=== PATIENT | female | born 1970 | race Hispanic/Latino ===

== ENCOUNTER 2020-05-02 14:28 | Emergency (ER) | payer OTHER, SELFPAY ==
--- OUTSIDE RECORDS SUMMARY | 2020-05-02 14:46 | XMS REPORT | Continuity of Care Document ---
:1970 Author Organization [facility] [employer] Care Team Providers Name Role Phone [facility] [employer] De[employer] Unavailable Un available Problems Problem Status Onset Classification Date Comments Sourc e Date Reported ANEMIA Active 11/07/19 [facility] [place] ANEMIA/TRANSFUSION [facility] [place] Anemia due to Active Problem 04/16/2020 [facility] dical blood loss Group (disorder) Menorrhagia Active Problem 04/16/2020 [facility] (finding) Group Uterine leiomyoma Active Problem 04/16/2020 [facility] (disorder[facility] Breast neoplasm Active Problem 04/16/2020 Medical screening Group (procedure) Patient encounter Active Problem 04/16/2020 [facility] status (finding) Mickie up Screening status Active Problem 04/16/2020 Medical (finding) Group Cobalamin Active Problem 04/16/2020 Medica l deficiency Group (disorder) Mixed Active Problem 04/16/2020 Medica l hyperlipidemia Group (disorder) Numbness of hand Active Problem 04/16/2020 Medical (finding) Group ANEMIA, Active [facility] UNSPECIFIED [place] Medications Medication Details Route Status Patient Ordering Order Source Instructions Provider Date gabapentin 300 300 mg = 1 Active Med ical MG Oral Capsule cap, PO, 020 Group BID, # 60 cap, 1 Refill(s), Pharmacy: [facility] [place], 152.4, cm, 04/14/20 13:11:00 CDT, Height, 53.835, kg, 04/14/20 13:11:00 CDT, Weight {21 (Ethinyl 3 tab, PO, Active Medic al Estradiol 0.03 Daily, # 28 020 Group MG / tab, 5 norethindrone Refill(s), acetate 1.5 MG Pharmacy: Oral Tablet) } [facility] Pack [facility], 152.4, cm, 01/06/20 14:42:00 CDT, Height, 53.864, kg, 01/06/20 14:42:00 CDT, Weight Loestrin 21 Loestrin 21 No Longer MH 1.5 oral 1.5 oral Active 020 [place] tablet tablet, 1 tab, Drug form: TAB, Route: PO, Daily, 11/08/19 9:00:00 CDT, Duration: 30 day, Stop date: 12/07/19 9:00:00 CDT [place] 1.12/18 [place] Inactive MH 21-day tablet 1.12/18 020 [place] 21-day tablet, 1 tab, Drug form: MISC, Route: PO, Daily, 11/08/19 9:00:00 CDT, Duration: 30 day, Stop date: 12/07/19 9:00:00 CDT, 0 sennosides, MCFP Notes: No Longer MH 8.6 MG Oral (Same as: Active 020 [place] Tablet Senokot) {21 (Ethinyl 3 tab, PO, Active MH Estradiol 0.03 Daily, 0 020 [place] MG / Refill(s) norethindrone acetate 1.5 MG Oral Tablet) } Pack [[place] .12/18] ferrous sulfate 325 mg = 1 Active MH 325 MG Oral tab, PO, 020 [place] Tablet Daily, 0 Refill(s) ferrous sulfate Notes: Give No Longer MH with food. Active 020 [place] "Do Not Crush" normal saline 1,000 mL, No Longer MH 0.9% IV 1,000 mL Rate: 75 Active 020 [place] ml/hr, Infuse over: 13.3 hr, Route: IV, Dosing Weight 51.392 kg, Total Volume: 1,000, Start date: 11/07/19 11:13:00 CDT, Duration: 30 day, Stop date: 12/07/19 11:12:00 CDT, 1.49, m2, 0 Sodium Chloride 250 mL, No Longer MH 0.9% (titrate) Rate: To Active 020 [place] 250 mL prime line and flush remaining blood products., Dosing Weight 51.392, kg, Route: IV, Total Volume: 250, Priority: Routine, Start Date: 11/07/19 11:05:00 CDT, Duration: 1 day, Stop date: 11/08/19 11:04:00 CDT, Replace Every: 24 hr, 0 Dextrose 50% 12.5 gm, 25 No Longer Syringe (D50W) mL, Route: Active [facility] nd IVP, Drug Form: INJ, Dosing Weight 51.392, kg, PRN, PRN Blood Glucose Results, Start date: 11/07/19 11:04:00 CDT, Duration: 30 day, Stop date: 12/07/19 11:03:00 CDT, 0 Glucagon 1 mg, No Longer Route: IM, Active [place] Drug form: PDR/INJ, PRN, Dosing Weight 51.392, kg, PRN Blood Glucose Results, Start date: 11/07/19 11:04:00 CDT, Duration: 30 day, Stop date: 12/07/19 11:03:00 CDT, 0 {21 (Ethinyl 1 tab, PO, Active Medic al Estradiol 0.03 Daily, take 020 Group MG / 3 pills a norethindrone day x 5 acetate 1.5 MG days, then Oral Tablet) } 2 pills a Pack [Loestrin day x 5 1.5/30 21 Day] days, then one a day as directed, # 84 tab, 3 Refill(s), Pharmacy: [facility] meloxicam 15 mg 15 mg = 1 Active Med ical oral tablet tab, PO, 020 Group Daily, PRN Pain, # 90 tab, 1 Refill(s), Pharmacy: [facility] Ondansetron 4 MG 4 mg = 1 Active Med ical Disintegrating tab, PO, 020 Group Tablet TID, PRN Nausea / Vomiting, Dissolve tab under tongue, # 30 tab, 0 Refill(s), Pharmacy: [facility] meloxicam 15 mg 15 mg = 1 Inactive Me dical oral tablet tab, PO, 020 Group Daily, PRN Pain, # 90 tab, 1 Refill(s), Pharmacy: [facility] Ondansetron 4 MG 4 mg = 1 Inactive Me dical Disintegrating tab, PO, 020 Group Tablet TID, PRN Nausea / Vomiting, Dissolve tab under tongue, # 30 tab, 0 Refill(s), Pharmacy: [facility] [place] #1 {21 (Ethinyl 1 tab, PO, Inactive Medi marlen Estradiol 0.03 Daily, take 020 Group MG / 3 pills a norethindrone day x 5 acetate 1.5 MG days, then Oral Tablet) } 2 pills a Pack [Loestrin day x 5 1.5/30 21 Day] days, then one a day as directed, # 84 tab, 3 Refill(s), Pharmacy: [facility] [place] Allergies, Adverse Reactions, Alerts No Known Medication Allergies Immunizations No Data Provided for This Section Results Order Name Results Value Reference Date Interpretation Comments Angeli rce Range HEMATOLOGY Segs 67.3 45.0 - 11/07 MH 75.0 [place] HEMATOLOGY Lymphocytes 23.4 20.0 - 11/07 MH 40.0 [place] HEMATOLOGY Monocytes 7.3 2.0 - 12.0 11/07 [place] HEMATOLOGY Eosinophils 1.4 0.0 - 4.0 11/07 [place] HEMATOLOGY Basophils 0.6 0.0 - 1.0 11/07 [place] HEMATOLOGY Neutrophils 5.9 1.5 - 8.1 11/07 MH # [place] HEMATOLOGY Lymphocytes 2.0 1.0 - 5.5 11/07 MH # [place] HEMATOLOGY Monocytes # 0.6 0.0 - 0.8 11/07 [place] HEMATOLOGY Eosinophils 0.1 0.0 - 0.5 11/07 MH # [place] HEMATOLOGY Basophils # 0.1 0.0 - 0.2 11/07 [place] HEMATOLOGY Microcyte 1+ None Seen 11/07 *ABN* [place] (11/08/19 1:41 AM) HEMATOLOGY WBC 8.7 3.7 - 10.4 11/07 [place] HEMATOLOGY RBC 3.32 4.20 - 11/07 5.40 [place] HEMATOLOGY Hgb 9.1 12.0 - 11/07 16.0 [place] HEMATOLOGY Hct 26.2 36.0 - 11/07 MH 48.0 [place] HEMATOLOGY MCV 78.8 80.0 - 11/07 MH 98.0 [place] HEMATOLOGY MCH 27.3 27.0 - 11/07 MH 31.0 [place] HEMATOLOGY MCHC 34.7 32.0 - 11/07 MH 36.0 [place] HEMATOLOGY RDW 20.0 11.5 - 11/07 MH 14.5 [place] HEMATOLOGY Platelet 259 133 - 450 11/07 [place] HEMATOLOGY MPV 8.8 7.4 - 10.4 11/07 [place] ANEMIA Ferritin Lvl 3 5 - 204 11/06 STUDY /2019 [place] ANEMIA Iron 256 30 - 160 11/06 STUDY [place] ANEMIA TIBC 461 228 - 428 11/06 STUDY [place] ANEMIA UIBC 205 110 - 370 11/06 STUDY [place] ANEMIA % Satur Fe 56 12 - 57 11/06 STUDY [place] ANEMIA Folate Lvl 21.4 >=3.0 11/06 STUDY ng/mL [place] ANEMIA Vitamin B12 302 254 - 1320 11/06 STUDY Lvl /2019 [place] BLOOD BANK ABO/Rh B POS 11/06 RESULTS /2019 [place] BLOOD BANK Antibody Negative 11/06 RESULTS Scrn (11/07/19 11:46 AM) [place] and CHEM PANEL LDH 170 98 - 192 11/06 [place] CHEM PANEL Bili Total 0.3 0.2 - 1.3 11/06 [place] CHEM PANEL Bili Direct <0.1 0.0 - 0.3 11/06 [place] CHEM PANEL Bili Unable to 0.0 - 1.0 11/06 Indirect Calculate [place] HEMATOLOGY Retic Auto 2.9 0.5 - 1.5 11/06 [place] HEMATOLOGY WBC 7.4 3.7 - 10.4 11/06 [place] HEMATOLOGY RBC 2.06 4.20 - 11/06 MH 5.40 /2019 [place] HEMATOLOGY Hgb 4.7 12.0 - 11/06 Result MH 16.0 Comment: [place] Critical Result(s) called to Tomas Naranjo at 11/07/2019 12:01 by Bonnie Abreu. Read back OK. Consistent with patient condition per RN. HEMATOLOGY Hct 14.5 36.0 - 11/06 Result MH 48.0 Comment: [place] Critical Result(s) called to Tomas Naranjo at 11/07/2019 12:01 by Bonnie Abreu. Read back OK. Consistent with patient condition per RN. HEMATOLOGY MCV 70.4 80.0 - 11/06 MH 98.0 [place] HEMATOLOGY MCH 22.8 27.0 - 11/06 MH 31.0 /2019 [place] HEMATOLOGY MCHC 32.4 32.0 - 11/06 MH 36.0 [place] HEMATOLOGY RDW 16.6 11.5 - 04 MH 14.5 /2019 [place] HEMATOLOGY Platelet 330 133 - 450 04 MH /2019 [place] HEMATOLOGY MPV 8.5 7.4 - 10.4 11/06 MH /2019 [place] HEMATOLOGY Segs 79.7 45.0 - 11/06 MH 75.0 [place] HEMATOLOGY Lymphocytes 14.9 20.0 - 11/06 MH 40.0 [place] HEMATOLOGY Monocytes 4.7 2.0 - 12.0 11/06 MH /2019 [place] HEMATOLOGY Eosinophils 0.3 0.0 - 4.0 11/06 MH /2019 [place] HEMATOLOGY Basophils 0.4 0.0 - 1.0 11/06 MH /2019 [place] HEMATOLOGY Neutrophils 5.9 1.5 - 8.1 11/06 MH # /2019 [place] HEMATOLOGY Lymphocytes 1.1 1.0 - 5.5 11/06 MH # /2019 [place] HEMATOLOGY Monocytes # 0.3 0.0 - 0.8 11/06 MH /2019 [place] HEMATOLOGY Microcyte 2+ None Seen 11/06 MH *ABN* /2019 [place] (11/07/19 11:46 AM) BLOOD BANK RBC product Product available 1 11/06 Resul t RESULTS (11/07/19 11:06 AM) Comment: [facility] 11/07/2019 13:10 [id number]
Blood available, notified Dayan at 11/07/2019 13:07 by PETER. ENDOCRINOLO hCG Tot <2 11/05 Result GY Comment: Medical Reference Group Range
Non or premenopausal <5
Postme nopausal <10

Values from different assay methods may vary.
The use of this assay to monitor or to diagnose
patients with cancer or any condition unrelated<br/ >to has not been cleared or approved by
the FDA or the development coordinator of the assay.
FA STING:NO

FASTING: NO

Lab test performed by:
[facility]
[address] [place] [address]
[place] [address]
[facility] HEMATOLOGY WBC X 10x3 6.0 3.8 - 10.8 11/05 Result Comment: Medical
Lab Group test performed by:
[facility]
[address]
[place] [address]
[facility] HEMATOLOGY RBC X 10x6 2.19 3.80 - 11/05 MH 5.10 Medical [facility] HEMATOLOGY Hgb 4.7 11.7 - 11/05 Result MH 15.5 Comment: Medical Verified by Group repeat analysis. HEMATOLOGY Hct 16.0 35.0 - 11/05 Result MH 45.0 Comment: Medical Verified by Group repeat analysis. HEMATOLOGY MCV 73.1 80.0 - 11/05 MH 100.0 /2019 Medical [facility] HEMATOLOGY MCH 21.5 27.0 - 11/05 MH 33.0 Medical [facility] HEMATOLOGY MCHC 29.4 32.0 - 11/05 MH 36.0 /2019 Medical [facility] HEMATOLOGY RDW 14.7 11.0 - 11/05 MH 15.0 Medical [facility] HEMATOLOGY Platelet 313 140 - 400 11/05 /2019 [facility] HEMATOLOGY MPV 11.1 7.5 - 12.5 11/05 /2019 [facility] HEMATOLOGY Neutrophils 3876 1500 - 11/05 MH # 7800 /2019 Medical Group HEMATOLOGY Lymphocytes 1608 850 - 3900 11/05 MH # /2019 [facility] HEMATOLOGY Monocytes # 390 200 - 950 11/05 [facility] HEMATOLOGY Eosinophils 108 15 - 500 11/05 # /2019 Medical [facility] HEMATOLOGY Basophils # 18 0 - 200 11/05 /2019 Medical [facility] HEMATOLOGY Segs 64.6 11/05 /2019 Medical Group HEMATOLOGY Lymphocytes 26.8 04/17 Medical Group HEMATOLOGY Monocytes 6.5 11/05 Medical Group HEMATOLOGY Eosinophils 1.8 11/05 Medical Group HEMATOLOGY Basophils 0.3 11/05 Medical Group HEMATOLOGY Diff Comment SEE 11/05 Result COMMENT /2019 Comment: Medical Review of Group peripheral smear confirms
automated results. Pathology Reports No Data Provided for This Section Diagnostic Reports Report Value Date Source Pelvis Limited w PROCEDURE INFORMATION: 11/07/2019 [facility] Transva non OB US Exam: US Pelvis Limited, Tra nsabdominal and US Pelvis, Transvaginal Exam date and time: 11/07/2019 1:14 PM Age: 49 years old Clinical indication: /bleeding TECHNIQUE: Imaging protocol: Real-time transabdominal and t ransvaginal pelvic ultrasound (limited) with image documentation. Transvaginal imaging was used for better evaluation of the endometrium and adnexa. COMPARISON: No relevant prior studies available. FINDINGS: Uterus/cervix: Uterus measures up to 9.5 cm and demonstrates normal echogenicity and Doppler flow. The endometrial s tripe measures 6 mm and is within normal limits. 3.9 x 3.6 x 2.4 cm subserosal anterior uterine fibroid is identified. Right adnexa: Right ovary is not identified for unknown reason. Left adnexa: Left ovary measures 3.2 x 2.8 x 1.9 cm and demonstrates normal echogenicity and Doppler flow. Free fluid: No free fluid identified in the pelv is. IMPRESSION: 3.9 cm subserosal uterine fibroid. Right ovary is absent. No significant sonographic abnormalities otherwi se identified. Jason Arita MD On 11/07/2019 16:41:13; [id number] Consultation Notes No Data Provided for This Section Discharge Summaries No Data Provided for This Section History and Physicals No Data Provided for This Section Vital Signs Vital Sign Value Date Comments Source Systolic (mm Hg) 112 04/14/2020 Medical Group Diastolic (mm Hg) 72 04/14/2020 [facility] Group Heart Rate 79 04/14/2020 Medical Grou p Temperature Oral (F) 97.2 F 04/14/2020 [facility] Height 152.4 cm 04/14/2020 Medical Gr[facility] p Weight 53.835 04/14/2020 [facility] Gr[facility] p BMI Calculated 23.18 04/14/2020 Medical Gr oup Systolic (mm Hg) 123 01/06/2020 [facility] Group Diastolic (mm Hg) 74 01/06/2020 [facility] Heart Rate 61 01/06/2020 Medical Grou p Temperature Oral (F) 98.4 F 01/06/2020 [facility] Group Height 152.4 cm 01/06/2020 Medical Grou p Weight 53.864 01/06/2020 Medical Grou p BMI Calculated 23.19 01/06/2020 Medical Gr oup Systolic (mm Hg) 99 11/17/2019 Medical Group Diastolic (mm Hg) 61 11/17/2019 [facility] Heart Rate 71 11/17/2019 Medical Grou p Temperature Oral (F) 98.6 F 11/17/2019 [facility] Group Height 152.4 cm 11/17/2019 Medical Grou p Weight 53.182 11/17/2019 Medical Grou p BMI Calculated 22.9 11/17/2019 Medical Gr oup Heart Rate 64 11/08/2019 [place] Respitory Rate 18 11/08/2019 [place] Systolic (mm Hg) 98 11/08/2019 [place] Diastolic (mm Hg) 58 11/08/2019 [place] Heart Rate 65 11/08/2019 [place] Respitory Rate 18 11/08/2019 [place] Systolic (mm Hg) 118 11/08/2019 [place] Diastolic (mm Hg) 72 11/08/2019 [place] Heart Rate 72 11/08/2019 [place] Respitory Rate 18 [facility] Sy[facility] ([facility] Hg) 95 11/08[facility]2019 [facility] Diastolic (mm Hg) 55 11/08/2019 [place] Temperature Oral (F) 99.1 F 11/07/2019 [place] Temperature Oral (F) 98.1 F 11/07/2019 [place] Height 152.4 cm 11/07/2019 [place] Weight 49.773 11/07/2019 [place] BMI Calculated 21.43 11/07/2019 [place] Systolic (mm Hg) 107 11/06/2019 [facility] Group Diastolic (mm Hg) 58 11/06/2019 [facility] Heart Rate 93 11/06/2019 Medical Grou p Height 152.4 cm 11/06/2019 [facility] Gr[facility] p Weight 51.392 11/06/2019 Medical Grou p BMI Calculated 22.13 11/06/2019 Medical Gr oup Encounters Location Location Encounter Encounter Reason Attending ADM DC Stat us Source Details Type Number For Provider Date Date Visit Outpatient [id number] [facility]ynum [facility] Outpatient [id number] Anmol Bynum 11/05 11/06 Primary Jr /2019 [facility] Between [id number] 11/06 11/07 Primary Visit /2019 [facility] Inpatient [id number] An 11/06 11/07 [place] /2019 [facility] Outpatient [id number] Anmol Bynum [facility]16 [facility] Outpatient [id number] Anmol Bynum 11/16 11/17 Primary Jr /2019 [facility] [place] [facility] [id number] Kathie 01/05 [facility] Outpatient [id number] Kathie 01/05 01/06 Primary [facility] /2019 [facility] Phone [id number] 01/11 01/13 Primary Message /2019 [facility] Phone [id number] 01/11 01/13 Primary Message /2019 [facility] [place] Outpatient [id number] Kathie 04/14 [facility] Outpatient [id number] Kathie 04/14 04/15 Primary [facility] /2019 [facility] [place] Outpatient [id number] Kathie 10/13 [facility] [place] Procedures No Data Provided for This Section Assessment and Plan Assessment and Plan Date Source Extracted from:Title: Heme-Onc Consult 11/08/2019 Jamari Garcia Author: Guru Villeda MD Date: 11/08/19 Hematology Oncology Consult Note: REFERRING PHYSICIAN: Dr. Nunez REASON FOR CONSULTATION: Anemia CHIEF COMPLAINT: Lightheaded HISTORY OF PRESENT ILLNESS: This is a 49-year-old female with no sig nificant past medical history, who was admitted to the hospital with hemoglobin of 4.7. Hematology was consulted for evaluation and management of microcytic anemia. Patient states that she normally has reg ular menstrual periods, but the last one was particularly heavy. She was started on oral contraception last week with improvement in her menstrual bleeding. Pat antonynt reports feeling weak and lightheade d. Blood work showed ferritin of 3, normal folate and B12. Patient was given 3 units of PRBC and her hemoglobin went up to 9.1. PAST MEDICAL HISTORY: None PAST SURGICAL HISTORY: None SOCIAL HISTORY: Employment/School Details: Status: Employed. Work/School description: [employer] in the [employer] department. Other: , 3 children (the youngest still lives with them). Tobacco Details: Use: Never smoker. Ready to ch kailyn: No. Tobacco smoke exposure: None. Did the Patient Smoke Cigarettes Anytime During the Last 365 Days? No. Cessation Counseling Provided? No. FAMILY HISTORY: Mother: [place] - Breast cancer ALLERGIES: Allergies: No Known Allergies Home Medications Home Medications (5) Active iron sulfate (ferrous sulfate) 325 mg oral tablet 325 mg = 1 tab, PO, Daily [place] 1.5/30 oral tablet 3 tab, PO, Daily Loestrin 21 1.5/30 oral tablet 1 tab, PO, Daily meloxicam 15 mg oral tablet 15 mg = 1 tab, PRN, PO, Daily ondansetron 4 mg oral tablet, disintegrating 4 mg = 1 tab, P RN, PO, TID Inpatient Medications: Medications (7) Active Scheduled Meds (3): 11/07/19 ferrous sulfate 325 mg PO TID 11/08/19 non-formulary ([place] 1.5/30 21-day tablet) 1 tab PO Daily 11/07/19 senna (senna 8.6 mg oral tablet) 8.6 mg PO BID Unscheduled Meds: None PRN Meds (3): 11/07/19 Dextrose 50% in Water IV (Dextrose 50% Syring e (D50W)) 12.5 gm IVP PRN 11/07/19 Dextrose 50% in Water IV (Dextrose 50% Syringe (D50 W)) 25 gm IVP PRN 11/07/19 glucagon 1 mg IM PRN One Time Meds: None Continuous Infusions (1): 11/07/19 Sodium Chloride 0.9% IV 1,000 m L (normal saline 0.9% IV 1,000 mL) 1,000 mL 75 ml/hr REVIEW OF SYSTEMS: 12 point review of systems was performed and is negative except for what is mentioned in HPI PHYSICAL EXAMINATION: Vitals Tmp(F) Pulse BP RR SpO2 FIO2 11/07 12:00 98.3 64 98/58 18 99 --- 11/07 08:00 98 65 118/72 18 100 --- 11/07 04:05 99.1 72 95/55 18 98 --- 11/06 16:00 99.1 85 94/57 16 100 --- 11/06 12:00 98.1 84 96/49 16 100 --- 24 Hr Tmax: 99.1F (37.28c) at 11/07 04:0 5 Vital Signs are the last 5 in the past 48 hours. Gen: NAD, AAOx3 HEENT: PERRL, EOMI, MMM Heart: RRR, S1, s2, no M/R/G Lungs: CTAB, no W/R/R Abd: soft, NT/ND, +BS, no HSM : no suprapubic tenderness Extrem: no pitting edema noted DATA: Labs reviewed, noted Hct: 26.2 % Low (11/08/19 01:41:00) Hgb: 9.1 g/dL Low (11/08/19 01:41:00) MCH: 27.3 pg (11/08/19 01:41:00) MCHC: 34.7 g/dL (11/08/19 01:41:00) MCV: 78.8 fL Low (11/08/19 01:41:00) MPV: 8.8 fL (11/08/19 01:41:00) Platelet: 259 K/CMM (11/08/19 01:41:00) RBC: 3.32 M/CMM Low (11/08/19 01:41:00) RDW: 20 % High (11/08/19 01:41:00) WBC: 8.7 K/CMM (11/08/19 01:41:00) Bili Total: 0.3 mg/dL ( 11:46:00) Imaging reviewed, noted Imaging Studies (last 36 hours) Pelvis Limited w Transvag non OB US 11/07/2019 16:41 Impression: 3.9 cm subserosal uterine fibroid. Right ovary is absent. No significant sonographic abnormalities otherwise identifie marty Arita MD On 11/07/2019 16:41:13; [id number] ASSESSMENT AND PLAN: Iron deficiency anemia Likely secondary to menorrhagia Patient is currently on oral contracept ion, which hopefully will improve her menstrual bleeding Discussed with the hospitalist, recomme nd discharging patient on oral iron supplementation, which she already has We will schedule patient for a follow-u p visit within 2 weeks. If unable to tolerate oral iron, will give iron IV Heme-Onc Dispo - no further inpatient work up is mariana ferguson Patient is cleared for discharge from Heme-Onc standoint Extracted from:Title: [facility] Hospitalist Admission History and Physical Author: An Nunez MD Date: 11/07/19 1.Anemia(D64.9) -transfuse 3 units PRBCs -f/u iron studies -cont FeSO4 Ordered: Admit/Condition, 11/07/19 11:05:00 CDT, Status: Inpatient, Telemetry Capable Location, Expected LOS: 2 Midnights, An Nunez MD, Admit MD Review/Approve Yes, Isolation: No Isolation/Standard Precautions, Anemia 2.Menorrhagia(N92.0) -continue Loestrin -pelvic/transvaginal US -needs outpatient CHEMIST STEROIDS amb 1-2 [place] Plan of Care No Data Provided for This Section Social History Social History Date Source Social History TypeResponse 11/06/2019 Mita smith Employment/School Status: Employed. Work/School descripti on: [employer] in the [employer] department. Other: , 3 children (the youngest still lives with them). Smoking Status Never smoker; Ready to change: No; Expos ure to Tobacco Smoke None; Cigarette Smoking Last 365 Days No; Reg Smoking Cessation Counseling No entered on: 04/14/20 Social History TypeResponse 11/06/2019 Radha Employment/School Status: Employed. Work/School descripti on: [employer] in the [employer] department. Other: , 3 children (the youngest still lives with them). Smoking Status Never smoker; Ready to change: No; Expos ure to Tobacco Smoke None; Cigarette Smoking Last 365 Days No; Reg Smoking Cessation Counseling No entered on: 11/06/19 Family History No Data Provided for This Section Advance Directives No Data Provided for This Section Functional Status No Data Provided for This Section
--- OUTSIDE RECORDS SUMMARY | 2020-05-02 14:46 | XMS REPORT | Summary of Care ---
:1970 Author Organization [facility] [place] Address [address] [place] [address]- Encounter HQ Nusrat_natasha(FIN) [id number] Date(s): 04/14/20 - 04/14/20 [facility] [place] [address] [place] [address]- [phone] Discharge Disposition: Home or Self Care Attending Physician: Kathie Garcia MD Vital Signs Most recent to oldest [Reference Range]: 1 Height 152.4 cm (04/14/20 1:06 PM) Temperature Oral [96.4-99.1 DegF] 97.2 DegF (04/14/20 1:06 PM) Blood Pressure [90-140/60-90 mmHg] 112/72 mmHg (04/14/20 1:06 PM) Peripheral Pulse Rate [60-100 bpm] 79 bpm (04/14/20 1:06 PM) Weight 53.835 kg (04/14/20 1:06 PM) Body Mass Index 23.18 m2 (04/14/20 1:06 PM) Problem List Condition Effective Dates Status Health Status Informant Blood loss anemia(Confirmed) Active Breast cancer screening(Confirmed) Active Vitamin B 12 deficiency(Confirmed) Active Menorrhagia(Confirmed) Active Mixed hyperlipidemia(Confirmed) Active Numbness of hand(Confirmed) Active Annual physical exam(Confirmed) Active Colon cancer screening(Confirmed) Active Lipid screening(Confirmed) Active Diabetes mellitus screening(Confirmed) Active Thyroid disorder screen(Confirmed) Active Uterine fibroid(Confirmed) Active Allergies, Adverse Reactions, Alerts No Known Allergies Medications gabapentin 300 mg oral capsule 300 mg = 1 cap, PO, BID, # 60 cap, 1 Refill(s), Pharmacy: [facility] Pharmacy [facility] 152.4, cm, 04/14/20 13:11:00 CDT, Height, 53.835, kg, 04/14/20 13:11:00 CDT, Weight Start Date: 04/14/20 Status: Ordered Results No data available for this section Immunizations No data available for this section Procedures Procedure Date Related Diagnosis Body Site Status None Completed Social History Social History Type Response Employment/School Status: Employed. Work/[employer] ol description: [employer] in the [address] department. Other: , 3 children (the youngest still lives with them). Smoking Status Never smoker; Ready to romero e: No; Exposure to Tobacco Smoke None; Cigarette Smoking Last 365 Days No; Reg Smoking Cessation Counseling No entered on: 04/14/20 Assessment and Plan No data available for this section
--- OUTSIDE RECORDS SUMMARY | 2020-05-02 14:47 | XMS REPORT | Summary of Care ---
:1970 Author Organization [facility] Address [address] [place] [id number] Care Team Providers Name Role Phone Pcp, Patient Does Not Have A Primary Care Provider +[id number] 0-0000 Reason for Visit Reason Comments Assessment Appointment Encounter Details Date Type Department Care Team Description 02/03/2020 Telephone [facility]- Eileen Ortiz Ass essment; Divina Casanova [facility] Appointment [address] [facility] [address] [facility] [address] [place], [place] [phone] Allergies No Known Allergiesdocumented as of this encounter (statuses as of 02/04/2020) Medications Medication Sig Dispensed Refills Start Date End Date Status ferrous sulfate 325 mg Take 1 tablet by 270 tablet 0 0 Active (65 mg iron) mouth 3 (three) tabletIndications: times daily with Menorrhagia with meals. 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) 07/10/2018 Screening mammogram, encounter for 06/26/2018 Well woman exam with routine gynecological exam 2016 Screen for STD (sexually transmitted disease) 01/15/20 17 Encounter for other contraceptive management 7 Lump of breast, right 01/14/2017 Vaginitis and vulvovaginitis, unspecified 01/14/2017 documented as of this encounter (statuses as of 02/04/2020) Resolved Problems Problem Noted Date Resolved Date Lump of right breast 09/29/2015 01/14/2017 Well woman exam 11/12/2014 01/14/2017 Overview: ICD10 Diagnosis Term Manager Equipment Utility Irregular menstrual cycle 11/12/2014 09/29/2015 Screen for STD (sexually transmitted disease) 11/12/2014 09/29/2015 Encounter for routine gynecological examination 11/18/2012 11/12/2014 Overview: Medical records received. DOS- 03/20/2013- Bilateral mammogram- Impression: incomplete assessment. Breast US- impression: benign. No sonographic evidence of malignancy. Bilateral cysts. ICD10 Diagnosis Term Manager Equipment Utility Contraceptive management 11/18/2012 01/14/2017 Overview: ICD10 Diagnosis Term Manager Equipment Utility Need for prophylactic vaccination with combined 11/18/2012 11/12/2014 aaaxmdwxsh-ygxspxg-ethcirfbd (DTP) vaccine Dysuria 11/18/2012 11/12/2014 Pain pelvic 11/18/2012 11/12/2014 documented as of this encounter (statuses as of 02/04/2020) Immunizations Name Administration Dates Next Due TDAP 06/21/2014, 12/10/2012 TDAP (ADACEL) VACCINE 03/06/2015 Td 11/18/1990 documented as of this encounter Social History Tobacco Use Types Packs/Day Years Used Date Never Smoker Smokeless Tobacco: Never Used Alcohol Use Drinks/Week oz/Week Comments No Financial Resource Strain Answer Date Recorded How hard is it for you to pay for the very basics like Not h samson at all 05/03/2019 food, housing, medical care, and heating? Food Insecurity Answer Date Recorded Within the past 12 months, you worried that your food would Never true 05/03/2019 run out before you got money to buy more. Within the past 12 months, the food you bought just didn't N ever true 05/03/2019 last and you didn't have money to get more. Transportation Needs Answer Date Recorded In the past 12 months, has lack of transportation kept you f rom No 05/03/2019 medical appointments or from getting medications? In the past 12 months, has lack of transportation kept you f rom No 05/03/2019 meetings, work, or getting things needed for daily living? Sex Assigned at Date Recorded Not on file Job Start Date Occupation Industry Not on file Not on file Not on file Travel History Travel Start Travel End No recent travel history available. documented as of this encounter Last Filed Vital Signs Not on filedocumented in this encounter Plan of Treatment Date Type Specialty Care Team Description 03/01/2020 Office Visit [facility] Roxanna Brooks, [employer]IC [address] [place], [place] [address] [phone] Health Maintenance Due Date Last Done Comments Depression Screening 02/21/2020 02/20/2019 Breast Cancer Screening 02/25/2020 02/24/2019, 02/14/2017, (MAMMOGRAM) 12/14/2014, Additional history exists INFLUENZA VACCINE (#1) 2020 PAP SMEAR 02/21/2024 02/20/2019, 09/28/2015, 11/18/2012, Additional history exists DTaP,Tdap,and Td Vaccines 03/06/2025 03/06/2015, 06/21/2014 , (4 - Td) 12/10/2012, Additional history exists PNEUMOCOCCAL 0-64 YEARS Aged Out No longe r eligible COMBINED SERIES based on patient 's age to complete this topic documented as of this encounter Results Not on filedocumented in this encounter Insurance Payer Benefit Plan Subscriber ID Effective Dates Phone Address Type / Group BCBS OF [facility] [id number] 2019-Prese [phone] [address] [place] [address] [place] PPO/POS [place] [id number] [place] [address] documented as of this encounter Advance Directives Name Relationship Healthcare Agent Communication Relationship Sherman Santiago Spouse Primary healthcare agent Bony CalderonRuth Child [facility] healthcare agent (Mobile)
--- OUTSIDE RECORDS SUMMARY | 2020-05-02 14:47 | XMS REPORT | Continuity of Care Document ---
:1970 Author Organization [facility] t Address [address] [place] [address] Care Team Providers Name Role Phone Kathie Garcia Attending Clinician [phone] Resident [place] Attending Clinician Unavailable Fletcher Granados Attending Clinician Enrique Attending Clinician Enrique Admitting Clinician Problems Condition Condition Condition Status Onset Resolution Last Treating Co mments Source Name Details Category Date Date Treatment Clinician Date ANEMIA Diagnosis Active 2019-11-11 Mem oria 11-06 21:57:00 l ANEMIA 00:00: [place] 00 Active 11/07/2019 [facility] [place] ANEMIA/TRA Diagnosis Active 2019-11-07 Memoria NSFUSION 11-06 10:42:00 l 00:00: [place] ANEMIA/TRA 00 NSFUSION Active 11/07/2019 [facility] [place] Anemia due Problem Active 2020-04-16 M emoria to blood 23:56:24 l loss Anemia [place] (disorder) due to blood loss (disorder) Active Problem 04/16/2020 [facility] Menorrhagi Problem Active 2020-04-16 M emoria a 23:56:24 l (finding) [place] Menorrhagi a (finding) Active Problem 04/16/2020 [facility] Uterine Problem Active 2020-04-16 Hammad genaro leiomyoma 23:56:24 l (disorder) Uterine [place] nolen leiomyoma (disorder) Active Problem 04/16/2020 [facility] Breast Problem Active 2020-04-16 Memor ia neoplasm 23:56:24 l screening Breast Tish nn (procedure neoplasm ) screening (procedure ) Active Problem 04/16/2020 [facility] Patient Problem Active 2020-04-16 Hammad genaro encounter 23:56:24 l status Patient [place] (finding) encounter status (finding) Active Problem 04/16/2020 [facility] Screening Problem Active 2020-04-16 Me moria status 23:56:24 l (finding) [place] Screening status (finding) Active Problem 04/16/2020 [facility] 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 23:56:24 l (disorder) Nicolas n Cobalamin deficiency (disorder) Active Problem 04/16/2020 [facility] Mixed Problem Active 2020-04-16 Memor ia hyperlipid 23:56:24 l emia Mixed [place] (disorder) hyperlipid emia (disorder) Active Problem 04/16/2020 [facility] Numbness Problem Active 2020-04-16 Mem oria of hand 23:56:24 l (finding) Numbness [place] nolen of hand (finding) Active Problem 04/16/2020 [facility] ANEMIA, Diagnosis Active 2019-11-11 Me moria UNSPECIFIE 21:57:00 l D ANEMIA, [place] UNSPECIFIE D Active [facility] Allergies, Adverse Reactions, Alerts This patient has no known allergies or adverse reactions. Social History Social Habit Start Date Stop Date Quantity Comments Source Social History 2019-11-06 2019-11-06 [facility] 18:48:30 18:48:30 Medications Ordered Filled Start Stop Current Ordering Indication Dosage Frequency Signature Comments Components Source Medication Medication Date Date Medication? Clinician (SIG) Name Name gabapentin Yes 300 mg = 1 M emoria 300 MG Oral 9-24 cap, PO, l Capsule 18:33: BID, # 60 Tish nn 00 cap, 1 Refill(s), Pharmacy: [facility] [place], 152.4, cm, 04/14/20 13:11:00 CDT, Height, 53.835, kg, 04/14/20 13:11:00 CDT, Weight { Yes 3 tab, PO, Memoria (Ethinyl 6-24 Daily, # l Estradiol 12:33: 28 tab, 5 Her nolen 0.03 MG / 00 Refill(s), norethindro Pharmacy: ne acetate HEB 1.5 MG Oral Pharmacy Tablet) } Destrehan Pack [[place] #1, 152.4, 1.530] cm, 01/06/20 14:42:00 CDT, Height, 53.864, kg, 01/06/20 14:42:00 CDT, Weight Loestrin 21 No Loestrin Me moria 1.5/30 oral 4-19 21 1.5/30 l tablet 14:00: oral [place] 00 tablet, 1 tab, Drug form: TAB, Route: PO, Daily, 11/08/19 9:00:00 CDT, Duration: 30 day, Stop date: 12/07/19 9:00:00 CDT Grayson No [place]ayson Memoria 1.530 4-19 1.5/30 l - 14:00: 21-day [place] tablet 00 tablet, 1 tab, Drug form: MISC, Route: PO, Daily, 11/08/19 9:00:00 CDT, Duration: 30 day, Stop date: 12/07/19 9:00:00 CDT, 0 sennosides, No Notes: Hammad genaro SN[facility] 8.6 MG 4-18 (Same as: l Oral Tablet 22:00: Senokot) He rmann 00 { Yes 3 tab, PO, Memoria (Ethinyl 4-18 Daily, 0 l Estradiol 16:36: Refill(s) Her nolen 0.03 MG / 00 norethindro ne acetate 1.5 MG Oral Tablet) } Pack [[place] 1.530] ferrous Yes 325 mg = 1 Hammad genaro sulfate 325 4-18 tab, PO, l MG Oral 16:36: Daily, 0 Nicolas n Tablet 00 Refill(s) ferrous 0 No Notes: Memoria sulfate 4-18 Give with l 16:14: food. "Do [place] 00 Not Crush" normal No 1,000 mL, Memori a saline 0.9% 4-18 Rate: 75 l IV 1,000 mL 16:13: ml/hr, Herm Infuse over: 13.3 hr, Route: IV, Dosing Weight 51.392 kg, Total Volume: 1,000, Start date: 11/07/19 11:13:00 CDT, Duration: 30 day, Stop date: 12/07/19 11:12:00 CDT, 1.49, m2, 0 Sodium 2020-0 No 250 mL, Memoria Chloride 4-18 Rate: To l 0.9% 16:05: prime line Albaro (titrate) 00 and flush 250 mL remaining blood products., Dosing Weight 51.392, kg, Route: IV, Total Volume: 250, Priority: Routine, Start Date: 11/07/19 11:05:00 CDT, Duration: 1 day, Stop date: 11/08/19 11:04:00 CDT, Replace Every: 24 hr, 0 Dextrose 2020-0 No 12.5 gm, Memor ia 50% Syringe 4-18 25 mL, l (D50W) 16:04: Route: [place] 00 IVP, Drug Form: INJ, Dosing Weight 51.392, kg, PRN, PRN Blood Glucose Results, Start date: 11/07/19 11:04:00 CDT, Duration: 30 day, Stop date: 12/07/19 11:03:00 CDT, 0 Glucagon 2020-0 No 1 mg, Memoria 4-18 Route: IM, l 16:04: Drug form: [place] 00 PDR/INJ, PRN, Dosing Weight 51.392, kg, PRN Blood Glucose Results, Start date: 11/07/19 11:04:00 CDT, Duration: 30 day, Stop date: 12/07/19 11:03:00 CDT, 0 {21 2020-0 Yes 1 tab, PO, Memoria (Ethinyl 4-17 Daily, l Estradiol 19:13: take 3 Nicolas n 0.03 MG / 00 pills a norethindro day x 5 ne acetate days, then 1.5 MG Oral 2 pills a Tablet) } day x 5 Pack days, then [Loestrin one a day as Day] directed, # 84 tab, 3 Refill(s), Pharmacy: [facility] #1 meloxicam 2020-0 Yes 15 mg = 1 Mem oria 15 mg oral 4-17 tab, PO, l tablet 19:13: Daily, PRN Tish nn 00 Pain, # 90 tab, 1 Refill(s), Pharmacy: [facility] # Ondansetron 2020-0 Yes 4 mg = 1 Me moria 4 MG 4-17 tab, PO, l Disintegrat 19:13: TID, PRN He rmann ing Tablet 00 Nausea / Vomiting, Dissolve tab under tongue, # 30 tab, 0 Refill(s), Pharmacy: [facility] #1 meloxicam 2020-0 No 15 mg = 1 Mem oria 15 mg oral 4-17 tab, PO, l tablet 19:12: Daily, PRN Tish nn 00 Pain, # 90 tab, 1 Refill(s), Pharmacy: [facility] #1 Ondansetron 2020-0 No 4 mg = 1 Me moria 4 MG 4-17 tab, PO, l Disintegrat 19:12: TID, PRN He rmann ing Tablet 00 Nausea / Vomiting, Dissolve tab under tongue, # 30 tab, 0 Refill(s), Pharmacy: [facility] #1 {21 2020-0 No 1 tab, PO, Memoria (Ethinyl 4-17 Daily, l Estradiol 19:02: take 3 Nicolas n 0.03 MG / 00 pills a norethindro day x 5 ne acetate days, then 1.5 MG Oral 2 pills a Tablet) } day x 5 Pack days, then [Loestrin one a day as Day] directed, # 84 tab, 3 Refill(s), Pharmacy: [facility] Vital Signs Vital Name Observation Time Observation Value Comments Source Systolic (mm Hg) 2020-04-14 18:06:00 Hammad rial [place] Diastolic (mm Hg) 2020-04-14 18:06:00 Mem orial [place] Heart Rate 2020-04-14 18:06:00 [facility] Temperature Oral (F) 2020-04-14 18:06:00 97.2 F [facility] Height 2020-04-14 18:06:00 152.4 cm [facility] Weight 2020-04-14 18:06:00 [facility] [place] BMI Calculated 2020-04-14 18:06:00 Memori al [place] Systolic (mm Hg) 2020-01-06 19:42:00 Hammad rial [place] Diastolic (mm Hg) 2020-01-06 19:42:00 Mem orial [place] Heart Rate 2020-01-06 19:42:00 [facility] [place] Temperature Oral (F) 2020-01-06 19:42:00 98.4 F [facility] [place] Height 2020-01-06 19:42:00 152.4 cm [facility] [place] Weight 2020-01-06 19:42:00 [facility] [place] BMI Calculated 2020-01-06 19:42:00 Memori al [place] Systolic (mm Hg) 2019-11-17 19:42:00 Hammad rial [place] Diastolic (mm Hg) 2019-11-17 19:42:00 Mem orial [place] Heart Rate 2019-11-17 19:42:00 [facility] [place] Temperature Oral (F) 2019-11-17 19:42:00 98.6 F [facility] [place] Height 2019-11-17 19:42:00 152.4 cm [facility] [place] Weight 2019-11-17 19:42:00 [facility] [place] BMI Calculated 2019-11-17 19:42:00 Memori al [place] Heart Rate 2019-11-08 17:00:00 [facility] [place] Respitory Rate 2019-11-08 17:00:00 Memori al [place] Systolic (mm Hg) 2019-11-08 17:00:00 Hammad rial [place] Diastolic (mm Hg) 2019-11-08 17:00:00 Mem orial [place] Heart Rate 2019-11-08 13:00:00 [facility] [place] Respitory Rate 2019-11-08 13:00:00 Memori al [place] Systolic (mm Hg) 2019-11-08 13:00:00 Hammad rial [place] Diastolic (mm Hg) 2019-11-08 13:00:00 Mem orial [place] Heart Rate 2019-11-08 09:05:00 [facility] [place] Respitory Rate 2019-11-08 09:05:00 Memori al [place] Systolic (mm Hg) 2019-11-08 09:05:00 Hammad rial [place] Diastolic (mm Hg) 2019-11-08 09:05:00 Mem orial [place] Temperature Oral (F) 2019-11-07 21:00:00 99.1 F [facility] [place] Temperature Oral (F) 2019-11-07 17:00:00 98.1 F [facility] [place] Height 2019-11-07 16:29:00 152.4 cm [facility] [place] Weight 2019-11-07 16:29:00 [facility] [place] BMI Calculated 2019-11-07 16:29:00 Memori al [place] Systolic (mm Hg) 2019-11-06 18:39:00 Hammad rial [place] Diastolic (mm Hg) 2019-11-06 18:39:00 Mem orial [place] Heart Rate 2019-11-06 18:39:00 [facility] [place] Height 2019-11-06 18:39:00 152.4 cm [facility] [place] Weight 2019-11-06 18:39:00 [facility] [place] BMI Calculated 2019-11-06 18:39:00 Memori al [place] Procedures This patient has no known procedures. Encounters Start End Encounter Admission Attending Care Care Encounter Source Date/Time Date/Time Type Type Clinicians Facility Department ID 2020-04-14 2020-04-14 [id number] 13:30:00 23:59:59 [place]od, 06 Kathie Berrios 2020-03-10 2020-03-10 Office Pool, [facility] [id number] 14:45:17 16:29:30 Visit Resident [facility] [id number] [facility] [id number] 2020-01-12 2020-01-13 Outpatient MG MG [id number] 16:13:27 23:59:59 2020-01-12 2020-01-13 Outpatient MG [facility] [id number] 16:09:49 23:59:59 00 2020-01-06 2020-01-06 Outpatient Recavarren [facility] [id number] 14:30:00 23:59:59 Vinod, 03 Kathie Berrios 2019-11-17 2019-11-17 Outpatient Fletcher MG [facility] [id number] 14:30:00 23:59:59 Anmol 05 2019-11-07 2019-11-08 Outpatient DEBBY Nunez [facility] [id number] 11:06:00 17:00:00 An 09 2019-11-07 2019-11-08 Outpatient [facility] [id number] 07:35:11 07:35:11 00 2019-11-07 2019-11-07 Inpatient U [facility] [id number] [facility] 11:06:00 10:17:00 2019-11-06 2019-11-06 Outpatient VENICE Bynum [facility] [id number] 13:30:00 23:59:59 Anmol 04 Results Test Description Test Time Test Comments Results Result Comments Source HEMATOLOGY 2019-11-08 67.3 [facility] 06:41:00 [place] HEMATOLOGY 2019-11-08 23.4 [facility] 06:41:00 [place] HEMATOLOGY 2019-11-08 7.3 [facility] 06:41:00 [place] HEMATOLOGY 2019-11-08 1.4 [facility] 06:41:00 [place] HEMATOLOGY 2019-11-08 0.6 [facility] 06:41:00 [place] HEMATOLOGY 2019-11-08 5.9 [facility] 06:41:00 [place] HEMATOLOGY 2019-11-08 2.0 [facility] 06:41:00 [place] HEMATOLOGY 2019-11-08 0.6 [facility] 06:41:00 [place] HEMATOLOGY 2019-11-08 0.1 [facility] 06:41:00 [place] HEMATOLOGY 2019-11-08 0.1 [facility] 06:41:00 [place] HEMATOLOGY 2019-11-08 1+ [facility] 06:41:00 *ABN*(11/08/19 [place] 1:41 AM) HEMATOLOGY 2019-11-08 8.7 Memorial 06:41:00 [place] HEMATOLOGY 2019-11-08 3.32 [facility] 06:41:00 [place] HEMATOLOGY 2019-11-08 9.1 [facility] 06:41:00 [place] HEMATOLOGY 2019-11-08 26.2 [facility] 06:41:00 [place] HEMATOLOGY 2019-11-08 78.8 [facility] 06:41:00 [place] HEMATOLOGY 2019-11-08 06:41:00 Test Item Value Reference Range Interpretation Comme nts MCH (test code = MCH) 27.3 pg 27.0-31.0 [facility] LfxlyqzUUYJPHBONI8010-75-26 06:41:0034.7[facility] 2019-11-08 06:41:0020.0[facility] OzxykyeNVBZMVFLYQ9382-80-56 06:41:50182Bofccanb XbejdkcDXYWHISAPJ4095-54-58 06:41:008.8[facility]annANEMIA UXBOZ6256-34-86 16:46:003[facility]annANEMIA DNBBT8194-11-07 16:46:53662Ekjewjim Albaro ANEMIA UPJRR2332-55-01 16:46:64399Plylbesn HermannANEMIA JODJM0067-88-94 16:46:16215Xedphaqv HermannANEMIA HTTPG0033-76-82 16:46:0056[facility] [place] ANEMIA KJBIS0672-71-14 16:46:0021.4[facility]annANEMIA OVBBB8196-68-07 16:46:56345Tcvcbptl HermannBLOOD BANK HSJBGGT8295-30-00 16:46:00Negative (11/07/19 11:46 AM)[facility] HermannCHEM VPAVB3287-57-10 16:46:06335Gssikftg HermannCHEM FLHQN0224-62-65 16:46:000.3[facility] HermannCHEM LDYXS3651-23-19 16:46:00<0.1[facility] TxmxjlyUBUBMCHPSD2806-15-00 16:46:002.9[facility] [place] NNBEZHZDUO3884-70-79 16:46:007.4[facility] WdzxrsrSBHDJUVECT0258-39-49 16:46:00 2.06[facility] FxqitcgLRYDDMFZWP0689-83-95 16:46:004.7[facility] HermannHEMATOLOGY 2019-11-07 16:46:0014.5[facility] AcdviynOIODSTDYZQ8961-11-43 16:46:0070.4[facility] WtlpkkqOBOLSLKJAN4478-00-77 16:46:00 Test Item Value Reference Range Interpretation Comments MCH (test code = MCH) 22.8 pg 27.0-31.0 [facility] LrhhchaBSSEBTDWJB8869-91-24 16:46:0032.4[facility]annHEMATOLOGY 2019-11-07 16:46:0016.6[facility] EwlultjXYIAJVNHBG1027-80-98 16:46:53381Xhpmrhck AeumzvlWERYQZUPLS8615-48-22 16:46:008.5[facility] QrgvwpgGNDNDCQFKK3586-16-24 16:46:0079.7[facility] HcgwejpXRDMKKUKNG9766-06-28 16:46:0014.9[facility] [place] JXYHFEKMZT5148-95-55 16:46:004.7[facility] LwksgklOYVQDUBETZ6105-51-62 16:46:000.3 [facility] RwxblegPWMRPDBLNR0783-29-76 16:46:000.4[facility]ann[facility]OLOGY 2019-11-07 16:46:005.9[facility] CfksukjCNJQLTIGUR2175-30-02 16:46:001.1[facility] TreepfmXFRIXLNFDC2688-56-41 16:46:000.3[facility] HzuyufmIMNHNVTZIY5983-30-74 16:46:002+ *ABN*(11/07/19 11:46 AM)[facility] SVIBZDG0122-65-64 16:06:00Product available 1(11/07/19 11:06 AM)[facility]annENDOCRINOLOGY 2019-11-06 05:00:00<2[facility] NlzduknPFRLNFFNKV8124-49-40 05:00:006.0[facility] UyvdteoFLWDGUFOUB4966-13-41 05:00:002.19[facility] CrtzeitPCFSZFBSYY9746-49-33 05:00:004.7[facility] NzxctnbPYXPRPQEUV9911-00-82 05:00:0016.0[facility] [place] VITVAZXBTW8860-00-10 05:00:0073.1[facility] MkthqeaUFJRUHKPKU3362-10-82 05:00:00 Test Item Value Reference Range Interpretation Comments MCH (test code = MCH) 21.5 pg 27.0-33.0 [facility] SftfejbHYYVNGNDWN7594-79-69 05:00:0029.4[facility]annHEMATOLOGY 2019-11-06 05:00:0014.7[facility] CxuoreaRPKQBYGMXN3778-12-07 05:00:53492Cmthpsdh CklvrjmXBKJSQXWLN1023-45-21 05:00:0011.1[facility] UhugxkaPDGVRCAKVX0195-96-27 05:00:202520Mhesbqnt NatyvpvDXIEBEKLDK1560-49-83 05:00:784095Febmqmxb [place] CSNLEHIGLG2804-85-86 05:00:75302Ejdzxvqb AszwvwvCIEVOSDTSI6420-83-89 05:00:31334 [facility] GkmiyynDFVNOIHKAN2928-01-61 05:00:0018[facility]ann[facility]MATOLOGY 2019-11-06 05:00:0064.6[facility] WrdiyfqHEPEOUMVEI7764-65-12 05:00:0026.8[facility] DkpuuqoCKOEAXZJRC7541-13-27 05:00:006.5[facility] VpnrmwbWUMEBKDDDC0362-19-48 05:00:001.8[facility] EumxtqdETZZRYLDNW1520-22-69 05:00:000.3[facility] [place]
--- OUTSIDE RECORDS SUMMARY | 2020-05-02 14:47 | XMS REPORT | Summary of Care ---
:1970 Author Organization [facility] - Health Address [address] [place] [address] Care Team Providers Name Role Phone Pcp, Patient Does Not Have A Primary Care Provider [id number] Encounter Details Date Type Department Care Team Description 03/01/2020 Orders Only [facility] Doctor Unassigned, No [address] [facility] Name [place] [phone] [place] [address] Allergies No Known Allergiesdocumented as of this encounter (statuses as of 03/01/2020) Medications Medication Sig Dispensed Refills Start Date End Date Status ferrous sulfate 325 mg Take 1 tablet by 270 tablet 0 0 Active (65 mg iron) mouth 3 (three) tabletIndications: times daily with Menorrhagia with meals. irregular cycle, Fatigue, unspecified type documented as of this encounter (statuses as of 03/01/2020) Active Problems Problem Noted Date RLQ abdominal [...] as of this encounter (statuses as of 03/01/2020) Resolved Problems Problem Noted Date Resolved Date Lump of right breast 09/29/2015 01/14/2017 Well woman exam 11/12/2014 01/14/2017 Overview: ICD10 Diagnosis Term [employer] Irregular menstrual cycle 11/12/2014 09/29/2015 Screen for STD (sexually transmitted disease) 11/12/2014 09/29/2015 Encounter for routine gynecological examination 11/18/2012 11/12/2014 Overview: Medical records received. DOS- 03/20/2013- Bilateral mammogram- Impression: incomplete assessment. Breast US- impression: benign. No sonographic evidence of malignancy. Bilateral cysts. ICD10 Diagnosis Term [employer] Contraceptive management 11/18/2012 01/14/2017 Overview: ICD10 Diagnosis Term [employer] Need for prophylactic vaccination with combined 11/18/2012 11/12/2014 pqgroqcbhm-rbzufoi-nbxzekmqg (DTP) vaccine Dysuria 11/18/2012 11/12/2014 Pain pelvic 11/18/2012 11/12/2014 documented as of this encounter (statuses as of 03/01/2020) Immunizations Name Administration Dates Next Due TDAP [...] Assigned at Date Recorded Not on file documented as of this encounter Last Filed Vital Signs Not on filedocumented in this encounter Plan of Treatment Date Type Specialty Care Team Description 03/01/2020 Office Visit [facility] Roxanna Brooks, [employer] [address] [place], [place] [address] [phone] Health Maintenance Due Date Last Done Comments Depression Screening 1982 Breast Cancer Screening 02/25/2020 02/24/2019, 02/14/2017, (MAMMOGRAM) 12/14/2014, Additional history exists Colorectal Cancer Screening 2020 INFLUENZA VACCINE (#1) 2020 PAP SMEAR 02/21/2024 02/20/2019, 09/28/2015, 11/18/2012, Additional history exists DTaP,Tdap,and Td Vaccines 03/06/2025 03/06/2015, 06/21/2014 , (4 - Td) 12/10/2012, Additional history exists PNEUMOCOCCAL 0-64 YEARS Aged Out No longe r eligible COMBINED SERIES based on patient 's age to complete this topic documented as of this encounter Procedures Procedure Name Priority Date/Time Associated Diagnosis Comme nts CONSENT/REFUSAL FOR Routine 03/01/2020 2:44 PM DIAGNOSIS AND TREATMENT CDT ASSIGNMENT OF BENEFITS Routine 03/01/2020 2:43 PM CDT documented in this encounter Results Not on filedocumented in this encounter Insurance Payer Benefit Plan Subscriber ID Effective Dates Phone Address Type / Group [employer] [id number] 2019-Prese [phone] [place] PPO/POS [facility] [id number] [place] [address] documented as of this encounter Advance Directives Name Relationship Healthcare Agent Communication Relationship Sherman Santiago Spouse Health Care Agent Bony Ruth Child [facility] Health Care Agent (Mobile)
--- OUTSIDE RECORDS SUMMARY | 2020-05-02 14:47 | XMS REPORT | Summary of Care ---
:1970 Author Organization [facility] Address [address] [place] [id number] Care Team Providers Name Role Phone Pcp, Patient Does Not Have A Primary Care Provider +[id number] 0-0000 Reason for Referral Radiology Services (Routine) Status Reason Specialty Diagnoses / Referred By Referred To Procedures Contact Contact New Request Diagnostic Diagnoses Breast cancer screening by mammogram Roxanna Brooks Radiology Procedures BI SCREENING MAMMOGRAM BILATERAL N, PURCHASING CLERK [address] [place] [id number] (Routine) Status Reason Specialty Diagnoses / Referred By Referred To Procedures Contact Contact New Request Obstetrics & Diagnoses Menorrhagia with regular cycle Subserous leiomyoma of uterus Roxanna Brooks Gynecology Procedures CONSULT/REFERRAL REFUGE MANAGER ([facility] ) Tammy PURCHASING CLERK [address] [place] [id number] Reason for Visit Reason Comments Well Woman Exam Encounter Details Date Type Department Care Team Description 03/01/[address] [facility] l woman exam (Primary Dx); [facility] Breast cancer screening by mammogram; [address] Menorrhagia with regular cycle; [address] BMI 22.0-22.9, adult; [place] [id number] Subserous leiomyoma of uterus; [id number] Screen for STD (sexually transmitted dis ease) [phone] Allergies No Known Allergiesdocumented as of this encounter (statuses as of 03/01/2020) Medications Medication Sig Dispensed Refills Start Date End Date Status ferrous sulfate 325 Take 1 270 tablet 0 11/05/2019 Active mg (65 mg iron) tablet by tabletIndications: mouth 3 Menorrhagia with (three) irregular cycle, times daily Fatigue, unspecified with meals. type Norethindrone Take 1 1 Package 3 03/01/2020 Activ e Acet-Ethinyl Est tablet by (AVEL 1.530, 21,) mouth daily. 1.5-30 mg-mcg per tabletIndications: Menorrhagia with regular cycle AVEL 1.30, 21, TAKE ONE (1) 0 01/14/2020 03/01/20 20 Discontinued 1.5-30 mg-mcg per TABLET(S) BY tablet MOUTH ONCE A DAY. documented as of this encounter (statuses as [...] exam 11/12/2014 01/14/2017 Overview: ICD10 Diagnosis Term Clinical Assistant Utility Irregular menstrual cycle 11/12/2014 09/29/2015 Screen for STD (sexually transmitted disease) 11/12/2014 09/29/2015 Encounter for routine gynecological examination 11/18/2012 11/12/2014 Overview: Medical records received. DOS- 03/20/2013- Bilateral mammogram- Impression: incomplete assessment. Breast US- impression: benign. No sonographic evidence of malignancy. Bilateral cysts. ICD10 Diagnosis Term Clinical Assistant Utility Contraceptive management 11/18/2012 01/14/2017 Overview: ICD10 Diagnosis Term Clinical Assistant Utility Need for prophylactic vaccination with combined 11/18/2012 11/12/2014 hvouiqgkcs-[id number]-jqerluiyr (DTP) vaccine Dysuria 11/18/2012 11/12/2014 Pain pelvic [...] Assigned at Date Recorded Not on file COVID-19 Exposure Response Date Recorded In the last month, have you been in contact with No / Unsure 03/01/2020 2:58 PM CDT someone who was confirmed or suspected to have Coronavirus / COVID-19? documented as of this encounter Last Filed Vital Signs Vital Sign Reading Time Taken Comments Blood Pressure 107/63 03/01/2020 2:59 PM CDT Pulse 75 03/01/2020 2:59 PM CDT Temperature 36.9 C (98.4 F) 03/01/2020 2:59 PM CDT Respiratory Rate 16 03/01/2020 2:59 PM CDT Oxygen Saturation - - Inhaled Oxygen Concentration - - Weight 53.1 kg (117 lb) 03/01/2020 2:59 PM CDT Height 152.4 cm (5') 03/01/2020 2:59 PM CDT Body Mass Index 22.85 03/01/2020 2:59 PM CDT documented in this encounter Patient Instructions Patient InstructionsJane Odom A - 03/01/2020 3:00 PM CDT Patient Education Examen clnico de seno Muchas organizaciones de xiang recomiendan hacerse un examen clnico de seno por ao. Sarita examen puede ser realizado por un gineclogo, proveedor de atencin mdica de abhay, enfermera profesional, enfermera obsttrica o enfermera especializada. Los exmenes de seno anuales ayudan a garantizar que las afecciones de los senos se detecten a tiempo. Funcin de leyva proveedor de atencin mdica El profesional de la atencin mdica conoce los estudios y cuidados de seguimiento necesarios si se detecta algn problema. Leyva examen clnico representa tambin dyllan excelente oportunidad para plantear preguntas acerca del autoexamen de seno. Usted podr saber si est realizando leyva autoexamen ray manera ms eficaz. Igualmente, puede preguntar sobre calculus teacher el embarazo, los implantes de seno o la ciruga de reduccin de seno afectan la manera en que usted deber examinarse los senos. Estudios de diagnstico Si un examen clnico revela un cambio en los senos, se pueden efectuar otros estudios para saber ms, por ejemplo: Mamografa. Charles X de baja dosis utilizados para crear imgenes del tejido interior del seno. Ultrasonido. Utilizacin de ondas de anish para crear dyllan imagen del seno. Biopsia. Remocin de dyllan pequea cantidad de tejido del seno mediante dyllan aguja o dyllan incisin. El tejido se examina luego con un microscopio. Normas para realizarse exmenes clnicos de seno ElAmerican College of Obstetricians and Gynecologists (Colegio Estadounidense de Obsttras y Gineclogos) recomienda que, a partir de los 29 aos de edad, usted debe hacerse a un examen clnico de seno cada brian a rio aos. Despus de los 40, deber hacerse el examen clnico de seno anualmente. Si tiene mayor riesgo de padecer cncer de seno, puede requerir exmenes ms frecuentes. Entrelos factores de riesgo del cncer de seno se encuentran los siguientes: Ser mayor de 50 aos o estar en etapa posmenopusica Tener antecedentes familiares de cncer de seno Tener la mutacin del gen BRCA1 o BRCA2 u otras determinadas mutaciones genticas Faustino tenido ms menstruaciones por faustino empezado a menstruar a edad temprana (antes de los 12 aos) o faustino tenido dyllan menopausia tarda (despus de los 55 aos) No faustino tenido embarazos Faustino tenido un primer embarazo despus de los 30 aos Obesidad Tener un historial de tratamiento con charles en la aracelis de leyva pecho Exposicin al dietilestilbestrol(TAYLOR)lore el embarazo de leyva madre No ser activo Beber alcohol en exceso Tener tejido mamario denso Realizar terapia hormonal despus de la menopausia Otras organizaciones de xiang tienen diferentes recomendaciones. Hable con leyva proveedor de atencinmdica sobre lo que es mejor para usted. [id number] [employer] [address] [place] [address], [place] [address]. Todos los derechos reservados. Esta informacin no pretende sustituir la atencin mdica profesional. Slo leyva mdico puede diagnosticar y tratar un problema de xiang. Patient Education Dyllan alimentacin sarah fuera de casa Adondequiera que vaya leyva abhay, comer stacy puede seguir siendo dyllan tarea fcil para usted y dyllan actividad divertida para yue hijos. Prepare tajadas de frutas y verduras con salsas dip sin grasa o con bajo contenido graso para llevar en bolsas o envases plsticos. Para picar, ofrezca bocadillos fciles y divertidos ruddy segmentos de apio con mantequilla de cacahuate (man) y uvas pasas. Lleve dyllan buena cantidad de agua embotellada. Vaya adonde vaya, estar siempre preparado para cuando le d hambre a usted y a yue hijos. En los restaurantes de comida rpida [employer] stacy en restaurantes de comida rpida requiere elegir los alimentos correctos. En lugar de comidas fritas, pruebe meri a la natalie ruddy el messi y el pescado. Busque anna horneadas con verduras o ensaladas, y tome leche baja en grasa o descremada en lugar de refrescos. Pida dyllan fruta o un yogur en lugar de batidos de helado o galletas. Si leyva hijo no est listo para dejar las papitas fritas, pida dyllan tristan porcin para que la compartan entre todos. Hodges kaitlynn a todos la oportunidad de saborear las papitas fritas sin hacer de ellasel centro de la comida. Fomente buenos hbitos dando el ejemplo: elija alimentos sanos para s mismo. Ya que los niosobservan calculus teacher y qu comen yue padres, es ms probable que ellos tambin coman los alimentos sanos que usted elija. En la hoang Hace yue compras en mercados de barrio o tiendas de conveniencia? Incluso en estos establecimientos podr encontrar alimentos sanos para leyva abhay. Busque lo siguiente: Vegetales y frutas en fazrana (conservadas en agua y no en almbar espeso). Si se ve obligado a comprar fruta en almbar, enjuguela con agua y bote el lquido. Productos de granos enteros ruddy el arroz integral, las tortillas de jessica y los panes integrales. Busque las palabras whole grain (calvin integral) en el paquete, no slo wheat (calvin). Buenas griffin de protena ruddy frijoles en farzana, atn enlatado en agua, huevos, y leche, quesoy yogur bajos en grasa o descremados. Aljese de los bocadillos! No se deje tentar por la gran abundancia de bocadillos fritos, caramelos, refrescos y cereales llenos de azcar. [id number] [employer] [address] [place] [address]. Todos los derechos reservados. Esta informacin no pretende sustituir la atencin mdica profesional. Slo leyva mdico puede diagnosticar y tratar un problema de xiang. Patient Education Pautas de prevencin para mujeres de entre 40 y 49 aos de edad Las pruebas de deteccin y las vacunas son importantes para el manejo de elyva xiang. Las pruebas de deteccin se realizan para detectar posibles trastornos o enfermedades en personas que no tienen ningn sntoma. El objetivo es encontrar dyllan enfermedad de manera temprana para poder hacer cambios en el estilo de mima y para que lo puedan controlar de cerca para reducir los riesgos de sufrir dyllan enfermedad, o para detectarla a tiempo y poder tratarla de manera eficaz. Las pruebas de deteccin no son pruebas de diagnstico, bhakti se usan para decidir si se deben realizar otros estudios.La consejera sobre leyva xiang tambin es esencial. A continuacin, richard pautas en relacin con esos temas para mujeres de entre 40 y 49 aos de edad. Hable con leyva proveedor de atencin mdica para asegurarse de que est al da con todo lo que necesita. Prueba de deteccin Para quines Frecuencia Diabetes tipo 2 o prediabetes Todas las mujeres empezando a los 45 aos, que no tengan sntomas a cualquier edad, que tengan sobrepeso o que hilda obesas y que tengan 1 o ms factores de riesgo adicionales para la diabetes. Por lo menos cada rio aos1 Diabetes tipo 2 o prediabetes Todas las mujeres diagnosticadas con diabetes gestacional Anlisis depor mima cada rio aos Diabetes tipo 2 Todas las mujeres con prediabetes Anualmente Uso indebido del alcohol Todas las mujeres de sarita noam de edad En los exmenes de rutina Presin arterial Todas las mujeres de sarita noam de edad [place]queo anual si leyva presin arterial es normal La presin arterial normal es flaca que 120/80mmHg Si la lectura de leyva presin arterial es ms kishan que lo normal, siga las indicaciones de leyva proveedor de atencin mdica Cncer de mama Todas las mujeres de sarita noam de edad que tengan un riesgo promedio. El examen de deteccin con dyllan mamografa puede comenzar a los 40 aos.2 Consulte a leyva proveedor de atencin mdica para que la ayude a decidir en qu momento comenzar con los exmenes de deteccin. A partirde los 45 aos, comience con dyllan mamografa al ao.3 Cncer del sonu uterino Todas las mujeres de sarita noam de edad, excepto las mujeres que hayan tenido dyllan histerectoma total Un [place]apan[place] cada 3 aos o un [place] y dyllan prueba de VPH cada jose aos Clamidia Las mujeres con mayor riesgo de infeccin En los exmenes de rutina si tiene riesgo o si tiene sntomas Depresin Todas las mujeres de sarita noam de edad En los exmenes de rutina Gonorrea Las mujeres sexualmente activas con mayor riesgo de infeccin En los exmenes de rutina Hepatitis C Todas las personas con un riesgo ms alto; dyllan vez para las nacidas entre 1944 y 1964 En los exmenes de rutina Nivel alto de colesterol o triglicridos Todas las mujeres de 45 aos o ms que tengan riesgo de tener dyllan enfermedad de las arterias coronarias. Las mujeres ms jvenes deberan consultar a leyva proveedor de atencin mdica Al menos cada jose aos VIH Todas las mujeres En los exmenes de rutina Las personas con factores de riesgo de tener el VIHdeben hacerse los anlisis anualmente, ruddy mnimo. Obesidad Todas las mujeres de sarita noam de edad En los exmenes de rutina Sfilis Las mujeres con mayor riesgo de infeccin; hable con leyva proveedor de atencin mdica En los exmenes de rutina Tuberculosis Las mujeres con mayor riesgo de infeccin; hable con leyva proveedor de atencin mdicaConsulte a leyva proveedor de atencin mdica [place] Todas las mujeres de sarita noam de edad Un examen completo a los 40 aos y exmenes de los ojos cada dos a cuatro aos. Si tiene dyllan enfermedad crnica, hable con leyva proveedor de atencin mdica para saber con qu frecuencia debera hacerse examinar los ojos.4 Vacuna Para quines Frecuencia Varicela Todas las mujeres de sarita noam de edad que no tienen registro de faustino tenido esta infeccin o de haberse aplicado esta vacuna Dos dosis. La segunda dosis debera aplicrsela al menos cuatro semanas despus de la primera dosis Hepatitis A Las mujeres con mayor riesgo de infeccin; hable con leyva proveedor de atencin mdica Dos dosis que se aplican al menos con seis meses de distancia Hepatitis B Las mujeres con mayor riesgo de infeccin; hable con leyva proveedor de atencin mdica [place] dosis a lo peggy de seis meses; la segunda dosis debera aplicarse un mes despus de la primera dosis; la tercera dosis debera aplicarse al menos dos meses despus de la segunda dosis y, al menos, cuatro meses despus de la primera dosis Haemophilus influenzae tipo B (Hib) Mujeres con mayor riesgo Dyllan a rio dosis Influenza (gripe) Todas las mujeres de sarita noam de edad Dyllan vez al ao Sarampin, paperas y rubola (MMR) Todas las mujeres de sarita noam de edad que no tienen registro de faustino tenido estas infecciones o de haberse aplicado estas vacunas Dyllan o dos dosis Antimeningoccica Las mujeres con mayor riesgo de infeccin; hable con leyva proveedor de atencin mdica Dyllan dosis o ms Antineumoccica conjugada (PCV13) y de polisacridos (PPSV23) Las mujeres con mayor riesgo de infeccin; hable con leyva proveedor de atencin mdica Dyllan o dos dosis Refuerzo de ttanos/difteria/tos ferina (Td/Tdap) Todas las mujeres de sarita noam de edad Dyllan anthony dosis de Tdap en lugar de un refuerzo de Td despus de los 18 aos. Luego, Td cada demario aos Consejera Para quines Frecuencia Pruebas sobre mutacin de los genes BRCA para richard el riesgo de tener cncer de ovario y cncer demama Las mujeres con mayor riesgo de tener mutacin de los genes Cuando se conoce leyva riesgo Cncer de mama y prevencin qumica del cncer Las mujeres con alto riesgo de cncer de mama Cuando se conoce leyva riesgo Dieta y actividad fsica Las mujeres que tienen sobrepeso u obesidad Cuando se diagnostica y, luego, en los exmenes de rutina Violencia domstica Las mujeres en edad de tener hijos En los exmenes de rutina Prevencin de infecciones de trasmisin sexual Las mujeres con mayor riesgo de infeccin; hable con leyva proveedor de atencin mdica En los exmenes de rutina Uso del tabaco y los efectos que puede tener sobre la xiang Todas las mujeres de sarita noam de edad En todos los exmenes 1American Diabetes Association 2American College of Obstetricians and Gynecologists 3American Cancer Society 4American Academy of Ophthalmology 4979-3493 [employer] [address] [place] [address], [place] [address]. All rights reserved. This information is not intended as a substitute for professional medical care. Always follow your healthcare professional's instructions. Patient Education Health Analyst entender MiPlato (Encision) El Departamento de Agricultura de los [place] (USDA por yue siglas en ingls) buenrostro emitido unaserie de pautas para ayudarle a elegir kylee yue comidas bajo el nombre de MiPlato (MyPlate en ingls). MiPlato muestra los grupos de alimentos que conforman dyllan comida saludable utilizando la imagen de un plato y un vaso. Antes de comer, piense en las opciones de alimentos ms saludables que puede poner en leyva plato, vaso o tazn. Para aprender ms acerca de un plato saludable, visite www.choosemyplate.gov. Los grupos de alimentos Frutas: Cualquier fruta o jugo de fruta al 100% cuenta dentro de sarita noam. Las frutas pueden ser frescas, enlatadas, congeladas o secas, y pueden ser enteras, en trozos o en pur. Modesto que la mitad de leyva plato hilda frutas y vegetales. Vegetales: Cualquier vegetal o jugo de vegetales al 100% cuenta dentro de sarita noam. Los vegetales pueden ser frescos, congelados, enlatados o secos. Pueden servirse crudos o cocidos y pueden ser enteros, cortados o en pur. Modesto que la mitad de leyva plato hilda frutas y vegetales. Granos: Todos los alimentos hechos a base de granos orestes parte de sarita noam. Hodges incluye panes, pasta, cereales, tortillas y grits de calvin, arroz, poncho, cebada y harina de poncho y de jessica. Los granos no deben ser ms de la cuarta parte de leyva plato. Al menos la mitad de los granos que consuma deben ser integrales. Protena: Sarita noam incluye carne, messi, pescados y mariscos, frijoles y chcharos (arvejas),huevos, productos de soya procesada (ruddy tofu), nueces (incluidas las mantequillas de nueces), y semillas. Modesto que las protenas no hilda ms de la cuarta parte de leyva plato. Las opciones de meri ypollo deben ser magras o bajas en grasa. Lcteos: Todos los productos lquidos de leche y los productos a base de leche que contengan calcio, ruddy yogures y quesos, son parte de sarita noam. (Los alimentos con poco contenido de calcio, ruddy la crema, la mantequilla y el queso crema, no se incluyen en sarita noam). La mayora de las opciones de lcteos deben ser bajos de grasa o sin grasa. Aceites: Estas son las grasas lquidas a temperatura ambiente, incluidos los aceites de canola, jessica, wesley, soya y girasol. Los alimentos que son la mayor parte aceites son mayonesa, ciertos aderezos para ensalada y las margarinas blandas. Usted debe consumir solo de 5 a 7 cucharaditas de aceites al da. Es probable que ya obtenga esta cantidad de los alimentos que come. [phone] [employer] [address] [place] [address]. Todos los derechos reservados. Esta informacin no pretende sustituir la atencin mdica profesional. Slo leyva mdico puede diagnosticar y tratar un problema de xiang. Patient Education Qu son las infecciones de transmisin sexual (ITS)? Cuando de relaciones sexuales se trata, nada est faith de riesgos. Todo contacto sexual que tenga que richard con el pene, la vagina, el ano o la boca puede propiciar la propagacin de dyllan infeccin detransmisin sexual (ITS). Las enfermedades de transmisin sexual incluyen clamidia, gonorrea, herpes, virus de la inmunodeficiencia humana (VIH) y verrugas genitales. Las infecciones de transmisin sexual tambin se conocen ruddy enfermedades de transmisin sexual (ETS). La anthony manera omalley deprevenir las infecciones de transmisin sexual es no tener relaciones sexuales (abstinencia). Sin embargo, existen maneras de hacer que las relaciones sexuales hilda ms seguras. Cada vez que tenga rel aciones sexuales, utilice un condn de ltex. Elija leyva henry con petros. Utilice condones para mayor seguridad. Si tiene relaciones sexuales, los condones de ltex ofrecen la mejor proteccin contra las infecciones de transmisin sexual. Los condones de ltex impiden el intercambio de fluidos corporales que transmiten ciertas infecciones de trasmisin sexual. Adems, limitan el contacto con las zonas afectadas de la piel. Tenga en cuenta que el condn no cubre toda la piel. De modo que la piel afectada que no est cubierta puede an transmitir la enfermedad. No obstante, usted est mejor protegido cuando utiliza un condn que cuando no lo hace. Utilice un condn incluso si est utilizando otros m todos anticonceptivos. Los mtodos anticonceptivos ruddy la pldora o los dispositivos intrauterinos (DIU) ayudan a prevenir el embarazo, bhakti no protegen contra las infecciones de transmisin sexual. Elija el condn adecuado Los condones de ltex ofrecen la mejor proteccin contra las enfermedades. Si es alrgico al ltex, entonces utilice condones de poliuretano. Los condones masculinos se colocan sobre el pene. Los condones femeninos recubren la vagina. Antes de comprar un condn, mikey la etiqueta para asegurarse deque ayude a prevenir enfermedades, ya que algunos condones nuevos no ofrecen proteccin. El lubricante adecuado es importante Compre condones lubricados o utilice lubricante. Hodges ofrece mayor comodidad y reduce el riesgo de que se rompa el condn. Utilice solo lubricantes a base de agua. No use aceite, locin ni vaselina ya que pueden debilitar el condn y hacer que se rompa. Asimismo, se recomienda utilizar lubricantes sin nonoxinol- 9. Sarita espermicida puede causar irritacin y aumentar el riesgo de contraer ciertas infecciones de transmisin sexual. Utilice los condones correctamente Para que los condones hilda eficaces, deben utilizarse correctamente. Tenga presente las siguientes sugerencias. Cada vez que tenga relaciones sexuales, utilice un condn de ltex nuevo. Pngase el condn en el pene antes de que se produzca cualquier contacto. Cuando se disponga a sacar el pene, sostenga el maximino del condn a medida que lo extrae. Hodges evitar que se le salga el condn. Antes de utilizar un condn, verifique leyva fecha de vencimiento. No guarde los condones en lugares que puedan calentarse, ruddy el auto o la billetera que se llevaen un bolsillo trasero. Conozca a leyva henry Las relaciones sexuales seguras representan un proceso que supone llegar a conocer kylee a la henry y lui decisiones informadas. Es importante hablar de cuntas parejas buenrostro tenido cada anna en el pasado y cuntas tiene en la actualidad. Averige si alguno de los dos tiene VIH o alguna otra infeccin de transmisin sexual. Si deciden tener relaciones sexuales, utilicen un condn cada vez que lo sonya. No deje de utilizar condones a menos que tenga la certeza de que ninguno de los dos tiene otras parejas y ambos se hayan realizado pruebas para comprobar que no tienen VIH ni ninguna otra infeccin de transmisin sexual. Luego, mantngase faith de enfermedades teniendo solo relaciones sexua les el brian con el otro (monogamia). Mantngase en control No deje que el alcohol ni las drogas le nublen el juicio, ya que lo pueden llevar a tener relacionessexuales con alguien que usted no habra elegido de faustino estado sobrio. Tambin es posible que olvide utilizar un condn. Si tiene pensado tener relaciones sexuales, lleve siempre consigo un condn. No espere hasta que se encuentre en medio de dyllan situacin apasionada para intentar encontrar brian. Considere la abstinencia La anthony manera de estar seguro de que no contraer dyllan infeccin de transmisin sexual es abstenerse de tener relaciones sexuales. La abstinencia es dyllan decisin que muchas personas eloy en algn momento de yue vidas. Fidel vez desee esperar hasta estar convencido de que est listo para tener re laciones sexuales. Quizs quiera lui un descanso de las responsabilidades que supone tener relaciones sexuales; o es posible que quiera conocer mejor a leyva henry antes de kaitlynn el siguiente paso. La abstinencia es dyllan decisin que usted puede lui ahora para proteger leyva futuro. [id number] [employer] [address] [place] [address], [place] [address]. Todos los derechos reservados. Esta informacin no pretende sustituir la atencin mdica profesional. Slo leyva mdico puede diagnosticar y tratar un problema de xiang. Patient Education Qu es el VIH y el SIDA Es importante saber calculus teacher puede entrar el VIH en el cuerpo y qu pasa dyllan vez que haya entrado. Entonces, estar mejor preparado para protegerse a usted mismo y a otros contra sartia virus. Dyllan personaque tiene el VIH puede verse y sentirse perfectamente. Bhakti mahnaz persona puede contagiar de VIH a otros stanley pronto est infectado. Si mantiene relaciones sexuales inseguras y sin proteccin, o comparte agujas, corre el riesgo de contraer el VIH. Consulte a leyva proveedor de atencin mdica sobre calculus teacher protegerse a usted mismo y asus seres queridos contra el contagio del VIH. Health Analyst evoluciona la infeccin por el VIH Despus de que el VIH entra en el cuerpo humano, ataca el sistema inmunitario por etapas, que se detallan a continuacin. Dyllan persona con el VIH puede infectar a otros en el momento en que entra el virus en la meenu. VIH asintomtico: Dyllan persona con el VIH puede no presentar ningn sntoma lore aos. La anthony seal de infeccin puede ser el resultado positivo de los anlisis de meenu para detectar el VIH, de 2 semanas a 3 meses o ms despus de que el VIH haya entrado al organismo. VIH sintomtico:Algunas personas desarrollan dyllan enfermedad similar a la mononucleosis 2 a 4 semanas despus de que el virus entra al organismo. Hodges se denomina sndrome retroviral liz. Los sntomas pueden incluir: ganglios linfticos inflamados, escalofros, fiebre, sudores nocturnos, debilidad, prdida de peso, erupciones cutneas y llagas en la boca o dolor de garganta. Los sntomas pueden ser leves o la persona puede sentirse muy mal. Incluso sin tratamiento, los sntomas jairo siempre desaparecen en unos jay o hasta 2 a 3 semanas. Entonces, la persona no tiene sntomas, a menudo por aos. Sin embargo, con el tiempo, el sistema inmunitario comienza a debilitarse y los sntomas comienzan a aparecer. Las personas en esta etapa pueden tener dyllan infeccin por levaduras en la boca (candidiasis oral), culebrilla, problemas en la piel, neumona, diarrea que no desaparece, o prdida de peso. SIDA. El SIDA es la etapa ms avanzada de la infeccin por el VIH, cuando el sistema inmunitario se ve gravemente debilitado. Determinadas enfermedades raras y tipos de cncer que normalmente no ocurren, pueden presentarse ahora porque el cuerpo ya no puede combatirlos con la eficiencia suficiente.Estas enfermedades son las que, con frecuencia, pueden causar la muerte en las personas con SIDA. ElVIH tambin puede atacar al cerebro y al sistema nervioso. Hodges causa convulsiones y prdida de lamemoria y el movimiento corporal. Tambin afecta muchas otras partes del cuerpo. Hodges genera problemas ruddy anemia, recuento bajo de glbulos blancos, diarrea, dolor estomacal, problemas en la piel ymuchos otros. Health Analyst entra el VIH al cuerpo El VIH es transportado por el semen, el fluido vaginal, la meenu y la leche materna. Cuando se tienen relaciones sexuales, el VIH puede entrar en el cuerpo a travs de los frgilestejidos y recubrimientos, llagas o humphrey en la vagina, el pene, el ano y la boca o alrededor de estos. Con el uso de drogas, tatuajes o perforaciones del cuerpo, el virus puede entrar en la meenu a travs de dyllan aguja infectada. Dyllan madre que tenga el VIH puede transmitir el virus a leyva beb lore el embarazo, en el momento del parto o al amamantarlo. [id number] [employer] [place] [address], [place] [address]. Todos los derechos reservados. Esta informacin no pretende sustituir la atencin mdica profesional. Slo leyva mdico puede diagnosticar y tratar un problema de xiang. documented in this encounter Progress Notes Roxanna Brooks, FRANCISCA - 03/01/2020 3:00 PM CDT Chief complaint: Chief Complaint Patient presents with Well Woman Exam HPI Here for Well Woman Exam and contraceptive management. Patient desires to continue OCPs for contraception and for management of menorrhagia. Reviewed risks/benefits/alternative contraceptive methods. Denies cramps, vaginal discharge, genital lesions, breast pain and vaginal pain. Desires STD testing. Pt reports heavy menses starting in October 2019. Reports she was hospitalized and required blood transfusion due to anemia. [facility] and menses are now not as heavy. There is a pelvic ultrasound report viewable in care everywhere from 11/07/19 that showed a 3.9 cm subserosal uterine fibroid. Pt desires further work up for menorrhagia and pelvic pain. Pt reports no past or present history of physical, sexual, and emotional abuse. Rubella: immune VZV: deferred BMI: Body mass index is 22.85 kg/m. Td: 2014 Pap Smear: 02/2019 NILM and HPV negative Gardasil: N/A Mammogram: 02/2019 WNL, due today Guaiac: defer to PCP Colonoscopy: defer to PCP Histories OB History Para Term AB Living 3 3 3 3 SAB TAB Ectopic Multiple Live Births # Outcome Date GA Lbr Mehran/2nd Weight Sex Delivery Anes PTL Lv 3 Term 2 Term 1 Term Past Medical History: Diagnosis Date Irregular menstrual cycle 11/12/2014 Ovarian cyst 10/2019 Screen for STD (sexually transmitted disease) 11/12/2014 Vaginitis and vulvovaginitis, unspecified 01/14/2017 Family History Problem Relation Age of Onset Breast Cancer Mother Hypertension Mother Other - see comments Father alzehimers Family Status Relation Name Status Mo (Not Specified) Fa (Not Specified) History reviewed. No pertinent surgical history. 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 Social Needs Financial resource strain: Not hard at all Food insecurity Worry: Never true Inability: Never true Transportation needs Medical: No Non-medical: No Tobacco Use Smoking status: Never Smoker Smokeless tobacco: Never Used Substance and Sexual Activity Alcohol use: No Drug use: No Sexual activity: Not Currently Partners: Male control/protection: Pill Comment: last sexual intercourse: 4+ months Lifestyle Physical activity Days per week: Not on file Minutes per session: Not on file Stress: Not on file Relationships Social connections Talks on phone: Not on file Gets together: Not on file Attends mandaen service: Not on file Active member of club or organization: Not on file Attends meetings of clubs or organizations: Not on file Relationship status: Not on file Intimate partner violence Fear of current or ex partner: Not on file Emotionally abused: Not on file Physically abused: Not on file Forced sexual activity: Not on file Other Topics Concern Service Not Asked Blood Transfusions No Caffeine Concern Not Asked Occupational Exposure Not Asked Hobby Hazards Not Asked Sleep Concern Not Asked Stress Concern Not Asked Weight Concern Not Asked Special Diet Not Asked Back Care Not Asked Exercise Not Asked Bike Helmet Not Asked Seat Belt Not Asked Self-Exams Not Asked Social History Narrative Pt states her mandaen preference is Pentecostalism Pt lives with her family No domestic violence or abuse Social History Substance and Sexual Activity Sexual Activity Not Currently Partners: Male control/protection: Pill Comment: last sexual intercourse: 4+ months Labs I have reviewed the patient's labs. and Labs are pending. Radiology I have reviewed the patient's radiology Pelvis Limited w Transvag non OB US 11/07/2019 16:41 Impression: 3.9 cm subserosal uterine fibroid. Right ovary is absent. No significant sonographic abnormalities otherwise identified. Allergies Jaida has No Known Allergies. Medications Jaida has a current medication list which includes the following prescription(s): norethindrone acet-ethinyl est and ferrous sulfate. Review of Systems Constitutional: Negative. HENT: Negative. Eyes: Negative. Respiratory: Negative. Breasts: Negative. Cardiovascular: Negative. Gastrointestinal: Negative. Genitourinary: Positive for menstrual problem and pelvic pain. Musculoskeletal: Negative. Skin: Negative. Neurological: Negative. Psychiatric/Behavioral: Negative. Endocrine: Endocrine negative BP 107/63 (BP Location: Right arm, Patient Position: Sitting, BP CUFF SIZE: Adult Medium) | Pulse 75 | Temp 36.9 C (98.4 F) (Oral) | Resp 16 | Ht 5' (1.524 m) | Wt 117 lb (53.1 kg) | LMP 02/27/2020 (Within Days) | BMI 22.85 kg/m Pregravid BMI: Could not be calculated Physical Exam Vitals reviewed. Constitutional: She is oriented to person, place, and time. She appears well- developed and well-nourished. Her body habitus is normal. Neck: No thyroid nodules and no thyromegaly palpated. Cardiovascular: Regular rate and rhythm. No murmur auscultated. Pulmonary/Chest: Breath sounds clear to auscultation. Normal inspiratory effort. Abdominal: Abdomen is soft. No mass palpated. No tenderness present. There is no hepatosplenomegaly. Neuro/Psychiatric: She has a normal mood and affect. She is oriented to person, place, and time. Skin: Skin normal. No lesion and no rash present. Genitourinary Comments: Chaperoned by: Lisbeth Harper RN Breast: Right breast exhibits no mass, no nipple discharge and no tenderness. Left breast exhibits no mass, no nipple discharge and no tenderness. Normal left breast and normal right breast External genitalia: Normal external genitalia appropriate for age. No labial lesion. Bladder: No tenderness. Normal bladder Vagina:Normal vagina. No lesion inspected. No abnormal vaginal discharge found. No lesions in thevagina. Cervix: Normal cervix. No lesion. No tenderness and no discharge present. Uterus: Uterus is normal size, normal position and non-tender. Normal uterus Adnexa: Right adnexa without tenderness. Left adnexa without tenderness. Normal left adnexa and normal right adnexa Assessment/Plan 1. Well woman exam CBE performed, educated patient regarding self breast awareness. SBE monthly. Patient advised mammograms to begin at age 40 Encourage green leafy vegetables, lean meats and fruit in diet. Avoid fatty, fried, sugary foods. Increase H2O intake (1/2 body weight in ozs). Exercise 30 minutes daily x 7 days/week as tolerated. Follow up 1 year 2. Breast cancer screening by mammogram CBE WNL, screening mammogram ordered - BI SCREENING MAMMOGRAM BILATERAL; Future 3. Menorrhagia with regular cycle Desires to continue OCPs Referral [facility] to [facility] - CONSULT/REFERRAL REFUGE MANAGER ([facility] ) - Norethindrone Acet-Ethinyl Est (AVEL 1.5, ,) 1.5-30 mg-mcg per tablet; Take 1 tablet by mouth daily. Dispense: 1 Package; Refill: 3 4. BMI 22.0-22.9, adult 5. Subserous leiomyoma of uterus - CONSULT/REFERRAL REFUGE MANAGER ([facility] ) 6. Screen for STD (sexually transmitted disease) Reviewed safe sex practices - GC & CHLAMYDIA AMPLIFIED ASSAY Return to clinic in 52 weeks. Discussed treatment options. Medications as ordered. Reviewed patient instructions and provided printed copy. This visit did not involve counseling and coordination that comprised more than 50% of the visit time. Susan Harper RN - 03/01/2020 3:00 PM CDT49 year old presents to the clinic for wwe. 1) Previous BCM: OCP 2) Desired BCM: OCP 3) LMP: 02/28/2020 4) Last Bogata: 4+ months 5) Last Pap: 02/20/2019 Results: Negative HPV: Negative 6) Tdap: 2013 7) Gardasil: N/A 8) C/O: Patient having pelvic pain, patient states hx of ovarian cyst. Care everywhere usg report. Pelvis Limited w Transvag non OB US 11/07/2019 16:41 Impression: 3.9 cm subserosal uterine fibroid. Right ovary is absent. No significant sonographic abnormalities otherwise identified. 9) Patient denies history of physical, emotional, or sexual abuse. Patient states that she currently feels safe at home. SUSAN HARPER RN 03/01/2020 3:11 PM documented in this encounter Plan of Treatment Date Type Specialty Care Team Description 03/09/2020 Appointment Radiology Roxanna Brooks, PURCHASING CLERK [address] [place], [place] [address] [phone] 03/10/2020 Office Visit [facility] Name Type Priority Associated Diagnoses Date/Ti me GC & CHLAMYDIA LAB Routine Screen for STD (sexually 0 03/01/2020 3:44 PM CDT AMPLIFIED ASSAY transmitted disease) Name Type Priority Associated Diagnoses Order S chedule BI SCREENING MAMMOGRAM IMAGING Routine Breast cancer scre ening Expected: 03/01/2020, BILATERAL by mammogram Expires: 2020 Health Maintenance Due Date Last Done Comments Breast Cancer Screening 02/25/2020 02/24/2019, 02/14/2017, (MAMMOGRAM) 12/14/2014, Additional history exists Colorectal Cancer Screening 2020 INFLUENZA VACCINE (#1) 2020 Depression Screening 03/01/2021 03/01/2020 PAP SMEAR 02/21/2024 02/20/2019, 09/28/2015, 11/18/2012, Additional history exists DTaP,Tdap,and Td Vaccines 03/06/2025 03/06/2015, 06/21/2014 , (4 - Td) 12/10/2012, Additional history exists PNEUMOCOCCAL 0-64 YEARS Aged Out No longe r eligible COMBINED SERIES based on patient 's age to complete this topic documented as of this encounter Results Not on filedocumented in this encounter Visit Diagnoses Diagnosis Well woman exam - Primary Routine general medical examination at a health care facility Breast cancer screening by mammogram Menorrhagia with regular cycle Excessive or frequent menstruation BMI 22.0-22.9, adult Subserous leiomyoma of uterus Screen for STD (sexually transmitted dis ease) Screening examination for venereal disea se documented in this encounter Insurance Payer Benefit Plan Subscriber ID Effective Dates Phone Address Type / Group BCBS OF [facility] [id number] 2019-Jayne [phone] [address] PPO/POS [facility] [id number] [place] [address] documented as of this encounter Advance Directives Name Relationship Healthcare Agent Communication Relationship Sherman Santiago Spouse Health Care Agent Bony Miranda Child [place] Health Care Agent (Mobile) "
--- OUTSIDE RECORDS SUMMARY | 2020-05-02 14:48 | XMS REPORT | Summary of Care ---
:1970 Author Organization [facility] Address [address] [place] [address] Care Team Providers Name Role Phone Pcp, Patient Does Not Have A Primary Care Provider +[id number] Reason for Visit Reason Comments Menstrual Problem (Routine) Status Reason Specialty Diagnoses / Referred By Referred To Procedures Contact Contact New Request Obstetrics & Diagnoses Menorrhagia with regular cycle Subserous leiomyoma of uterus Roxanna Brooks Gynecology Procedures CONSULT/REFERRAL NITRATOR OPERATOR ([facility] ) N, RETAIL DEPARTMENT RESET [address] [place] [address] Encounter Details Date Type Department Care Team Description 03/10/2020 Office Visit [facility] Radha Rodriguez M D [address] [place] [address] Menorrhagia with [facility] Resident regular cycle [facility] (Primary Dx) [address] [facility], [address]th [place] [address] Allergies No Known Allergiesdocumented as of this encounter (statuses as of 03/11/2020) Medications Medication Sig Dispensed Refills Start Date End Date Status ferrous sulfate 325 Take 1 270 tablet 0 11/05/2019 Active mg (65 mg iron) tablet by tabletIndications: mouth 3 Menorrhagia with (three) irregular cycle, times daily Fatigue, with meals. unspecified type Norethindrone Take 1 3 Package 3 03/10/2020 Activ e Acet-Ethinyl Est tablet by (AVEL 1.5/30, 21,) mouth 1.5-30 mg-mcg per daily. tabletIndications: Menorrhagia with regular cycle Norethindrone Take 1 1 Package 3 03/01/2020 Disco ntinued Acet-Ethinyl Est tablet by 0 (Re order) (AVEL 1.5/30, 21,) mouth 1.5-30 mg-mcg per daily. tabletIndications: Menorrhagia with regular cycle documented as of this encounter (statuses as of 03/11/2020) Active Problems Problem Noted Date RLQ abdominal [...] as of this encounter (statuses as of 03/11/2020) Resolved Problems Problem Noted Date Resolved Date Lump of right breast 09/29/2015 01/14/2017 Well woman exam 11/12/2014 01/14/2017 Overview: ICD10 Diagnosis Term Biodiesel Engineering Manager Utility Irregular menstrual cycle 11/12/2014 09/29/2015 Screen for STD (sexually transmitted disease) 11/12/2014 09/29/2015 Encounter for routine gynecological examination 11/18/2012 11/12/2014 Overview: Medical records received. DOS- 03/20/2013- Bilateral mammogram- Impression: incomplete assessment. Breast US- impression: benign. No sonographic evidence of malignancy. Bilateral cysts. ICD10 Diagnosis Term Biodiesel Engineering Manager Utility Contraceptive management 11/18/2012 01/14/2017 Overview: ICD10 Diagnosis Term Biodiesel Engineering Manager Utility Need for prophylactic vaccination with combined 11/18/2012 11/12/2014 [id number] (DTP) vaccine Dysuria 11/18/2012 11/12/2014 Pain pelvic 11/18/2012 11/12/2014 documented as of this encounter (statuses as of 03/11/2020) Immunizations Name Administration Dates Next Due TDAP [...] been in contact with No / Unsure 03/10/2020 3:07 PM CDT someone who was confirmed or suspected to have Coronavirus / COVID-19? documented as of this encounter Last Filed Vital Signs Vital Sign Reading Time Taken Comments Blood Pressure 110/72 03/10/2020 3:06 PM CDT Pulse 73 03/10/2020 3:06 PM CDT Temperature 37.1 C (98.8 F) 03/10/2020 3:06 PM CDT Respiratory Rate 17 03/10/2020 3:06 PM CDT Oxygen Saturation - - Inhaled Oxygen Concentration - - Weight 53.9 kg (118 lb 12.8 oz) 03/10/2020 3:06 PM CDT Height 152.4 cm (5') 03/10/2020 3:06 PM CDT Body Mass Index 23.2 03/10/2020 3:06 PM CDT documented in this encounter Progress Notes Angelica Abrams MD - 03/10/2020 2:30 PM CDT Chief complaint: Chief Complaint Patient presents with Menstrual Problem HPI Jaida Henderson is a 49 year old female who presents for history of heavy menstrual bleeding. She states she had heavy bleeding in the spring, was then seen at [facility] in October, received a blood transfusion, and was placed on OCPs. Pelvic US from 10/2019 found in Care Everywhere whichreports a 3.9 x 3.6 x 2.4 cm subserosal anterior uterine fibroid. She reports since being on OCPs her cycles have improved. They now last 2-4 days, and she uses 3 pads/day. LMP 02/23/20. She reports she is here today to better understand why she had this episode of heavy bleeding. Reports occasional cramping with periods, not present every month. She is currently asymptomatic. Denies history of hypertension, migraines with aura, or blood clots. She is a nonsmoker. Histories OB History Para Term AB Living [...] file Gets together: Not on file Attends mandaeism service: Not on file Active member of [...] Asked Social History Narrative Pt states her mandaeism preference is Religious Pt lives with her family No domestic violence or abuse Social History Substance and Sexual Activity Sexual Activity Not Currently Partners: Male control/protection: Pill Comment: last sexual intercourse: 4+ months Labs I have reviewed the patient's labs. Radiology Pelvis Limited w Transvag non OB US PROCEDURE INFORMATION: Exam: US Pelvis Limited, Transabdominal and US Pelvis, Transvaginal Exam date and time: 11/07/2019 1:14 PM Age: 49 years old Clinical indication: /bleeding TECHNIQUE: Imaging protocol: Real-time transabdominal and transvaginal pelvic ultrasound (limited) with image documentation. Transvaginal imaging was used for better evaluation of the endometrium and adnexa. COMPARISON: No relevant prior studies available. FINDINGS: Uterus/cervix: Uterus measures up to 9.5 cm and demonstrates normal echogenicity and Doppler flow. The endometrial stripe measures 6 mm and is within normal limits. 3.9 x 3.6 x 2.4 cm subserosal anterior uterine fibroid is identified. Right adnexa: Right ovary is not identified for unknown reason. Left adnexa: Left ovary measures 3.2 x 2.8 x 1.9 cm and demonstrates normal echogenicity and Doppler flow. Free fluid: No free fluid identified in the pelvis. IMPRESSION: 3.9 cm subserosal uterine fibroid. Right ovary is absent. No significant sonographic abnormalities otherwise identified. Jason Arita MD On 11/07/2019 16:41:13; [id number] 11/07/2019 Allergies Jaida has No Known Allergies. Medications Jaida has a current medication list which includes the following prescription(s): norethindrone acet-ethinyl est and ferrous sulfate. Review of Systems Constitutional: Negative. HENT: Negative. Eyes: Negative. Respiratory: Negative. Breasts: Negative. Cardiovascular: Negative. Gastrointestinal: Negative. Genitourinary: Negative. Musculoskeletal: Negative. Skin: Negative. Neurological: Negative. Psychiatric/Behavioral: Negative. Endocrine: Endocrine negative BP 110/72 (BP Location: Left arm, Patient Position: Sitting, BP CUFF SIZE: Adult Medium) | Pulse 73 | Temp 37.1 C (98.8 F) (Oral) | Resp 17 | Ht 5' (1.524 m) | Wt 118 lb 12.8 oz (53.9 kg) | LMP 02/27/2020 (Within Days) | BMI 23.20 kg/m Pregravid BMI: Could not be calculated Physical Exam Vitals reviewed. Constitutional: She is oriented to person, place, and time. She appears well- developed and well-nourished. Neck: No mass. Cardiovascular: No peripheral edema present. Pulmonary/Chest: Normal inspiratory effort. Abdominal: Abdomen is soft. Neuro/Psychiatric: She has a normal mood and affect. She is oriented to person, place, and time. Skin: Skin normal. Assessment/Plan Jaida Henderson is a 49 year old female who presents for history of heavy menstrual bleeding. Hx of heavy menstrual bleeding - Seen at [facility] 10/2019 for VB and received blood transfusion - Placed on OCPs, bleeding improved, now normal 2-4 day menses - Pelvic US 10/2019- 3.9 x 3.6 x 2.4 cm subserosal anterior uterine fibroid - Plan: continue OCPs for management of heavy menses as they are working well for her. No contraindications to estrogen. Can take NSAIDs for cramping. Follow up 02/2020 for well woman care or sooner if issues arise D/w Dr. Rodriguez This visit did not involve counseling and coordination that comprised more than 50% of the visit time. Angelica Abrams MD 03/11/2020 10:32 AM documented in this encounter Plan of Treatment Health Maintenance Due Date Last Done Comments [...] filedocumented in this encounter Visit Diagnoses Diagnosis Menorrhagia with regular cycle - Primary Excessive or frequent menstruation documented in this encounter Insurance Payer Benefit Plan Subscriber ID Effective Dates Phone Address Type / Group BCBS [facility] [id number] 2019-Prese [phone] [address] PPO/POS [facility] [id number] [place] [address] documented as of this encounter Advance Directives Name Relationship Healthcare Agent Communication Relationship Sherman Henderson Spouse Health Care Agent Bony CalderonRuth Child [facility] [phone] Care Agent (Mobile) "
--- OUTSIDE RECORDS SUMMARY | 2020-05-02 14:48 | XMS REPORT | Summary of Care ---
:1970 Author Organization [facility] Address [address] [place] [address] Care Team Providers Name Role Phone Pcp, Patient Does Not Have A Primary Care Provider +1-000-00 0-0000 Reason for Visit Reason Comments Menstrual Problem (Routine) Status Reason Specialty Diagnoses / Referred By Referred To Procedures Contact Contact New Request Obstetrics & Diagnoses Menorrhagia with regular cycle Subserous leiomyoma of uterus Roxanna Brooks Gynecology Procedures CONSULT/REFERRAL QUALITY CONTROL TECHNICIAN ([facility] ) N, OPERATING SYSTEMS PROGRAMMER [address] [place] [address] Encounter Details Date Type Department Care Team Description 03/10/2020 Office Visit [facility] Radha Rodriguez M D [address] [place] [address] Menorrhagia with [facility] Resident regular cycle [facility] (Primary Dx) [address] [facility], 7th [place] [address] Allergies No Known Allergiesdocumented as [...] exam 11/12/2014 01/14/2017 Overview: ICD10 Diagnosis Term Rug Drying Machine Operator Utility Irregular menstrual cycle 11/12/2014 09/29/2015 Screen for STD (sexually transmitted disease) 11/12/2014 09/29/2015 Encounter for routine gynecological examination 11/18/2012 11/12/2014 Overview: Medical records received. DOS- 03/20/2013- Bilateral mammogram- Impression: incomplete assessment. Breast US- impression: benign. No sonographic evidence of malignancy. Bilateral cysts. ICD10 Diagnosis Term Rug Drying Machine Operator Utility Contraceptive management 11/18/2012 01/14/2017 Overview: ICD10 Diagnosis Term Rug Drying Machine Operator Utility Need for prophylactic vaccination with combined 11/18/2012 11/12/2014 zjacvingxv-jtgviij-hbcdpcldl (DTP) vaccine Dysuria 11/18/2012 11/12/2014 Pain pelvic [...] in the spring, was then seen at [facility] in October, received a blood transfusion, and [...] file Gets together: Not on file Attends roman catholic service: Not on file Active member of [...] Asked Social History Narrative Pt states her roman catholic preference is Restorationist Pt lives with her family No domestic [...] identified. Jason Arita MD On 11/07/2019 16:41:13; [id number] 11/07/2019 Allergies Jaida has No Known Allergies. [...] of heavy menstrual bleeding - Seen at [facility] 10/2019 for VB and received blood transfusion [...] Dates Phone Address Type / Group BCBS [facility] [id number] 2019-Prese [phone] [address] PPO/POS [facility] 7 [id number] [place] [address] documented as of this encounter Advance Directives Name Relationship Healthcare Agent Communication Relationship Sherman Henderson Spouse Health Care Agent Bony CalderonRuth Child [facility] Care Agent (Mobile) "
--- OUTSIDE RECORDS SUMMARY | 2020-05-02 14:48 | XMS REPORT | Summary of Care ---
:1970 Author Organization [facility] Address [address] [place] [address] Care Team Providers Name Role Phone Pcp, Patient Does Not Have A Primary Care Provider +1-000-00 0-0000 Reason for Referral Radiology Services (Routine) Status Reason Specialty Diagnoses / Referred By Referred To Procedures Contact Contact New Request Diagnostic Diagnoses Breast cancer screening by mammogram Roxanna Brooks Radiology Procedures BI SCREENING MAMMOGRAM BILATERAL N, INDEPENDENT TRADER [address] [place] [address] (Routine) Status Reason Specialty Diagnoses / Referred By Referred To Procedures Contact Contact New Request Obstetrics & Diagnoses Menorrhagia with regular cycle Subserous leiomyoma of uterus Roxanna Brooks Gynecology Procedures CONSULT/REFERRAL PLANNING MANAGER ([facility] ) Tammy INDEPENDENT TRADER [address] [place] [id number] Reason for Visit Reason Comments Well Woman Exam Encounter Details Date Type Department Care Team Description [facility] Wel l woman exam (Primary Dx); [facility] Breast cancer screening by mammogram; [address] Menorrhagia with regular cycle; [address] BMI 22.0-22.9, adult; [place] [id number] Subserous leiomyoma of uterus; [id number] Screen for STD (sexually transmitted dis ease) [phone] Allergies No Known Allergiesdocumented as of this [...] exam 11/12/2014 01/14/2017 Overview: ICD10 Diagnosis Term Scaffold Setter Utility Irregular menstrual cycle 11/12/2014 09/29/2015 Screen for STD (sexually transmitted disease) 11/12/2014 09/29/2015 Encounter for routine gynecological examination 11/18/2012 11/12/2014 Overview: Medical records received. DOS- 03/20/2013- Bilateral mammogram- Impression: incomplete assessment. Breast US- impression: benign. No sonographic evidence of malignancy. Bilateral cysts. ICD10 Diagnosis Term Scaffold Setter Utility Contraceptive management 11/18/2012 01/14/2017 Overview: ICD10 Diagnosis Term Scaffold Setter Utility Need for prophylactic vaccination with combined 11/18/2012 11/12/2014 yojozqzuuo-cgzdlfv-toqnelcht (DTP) vaccine Dysuria 11/18/2012 11/12/2014 Pain pelvic [...] manera ms eficaz. Igualmente, puede preguntar sobre tool checker el embarazo, los implantes de seno o [...] sobre lo que es mejor para usted. [phone] [employer]. [address] [place] [address], [place] [address]. Todos los derechos reservados. Esta informacin no [...] hijos. En los restaurantes de comida rpida [place] stacy en restaurantes de comida rpida requiere [...] porcin para que la compartan entre todos. Manuel Garcia Ii kaitlynn a todos la oportunidad de saborear las papitas fritas sin hacer de ellasel centro de la comida. Fomente buenos hbitos dando el ejemplo: elija alimentos sanos para s mismo. Ya que los niosobservan tool checker y qu comen yue padres, es ms probable que ellos tambin coman los alimentos sanos que usted elija. En la hoang Hace yue compras en mercados de barrio o tiendas de conveniencia? Incluso en estos establecimientos podr encontrar alimentos sanos para leyva abhay. Busque lo siguiente: Vegetales y frutas en farzana (conservadas en agua y no en almbar [...] caramelos, refrescos y cereales llenos de azcar. [phone] [employer]. [address] [place] [address]. Todos los derechos reservados. Esta informacin no pretende sustituir la atencin mdica profesional. Slo leyva mdico puede diagnosticar y tratar un problema de xiang. Patient Education Pautas de prevencin para mujeres de entre 40 y 49 aos de edad Las pruebas de deteccin y las vacunas son importantes para el manejo de leyva xiang. Las pruebas de deteccin se realizan [...] mdicaConsulte a leyva proveedor de atencin mdica [place] Todas las mujeres de sarita noam de [...] 3American Cancer Society 4American Academy of Ophthalmology [phone] The [employer]. [address] [place] [address], [place] [address]. All rights reserved. This information is not intended as a substitute for professional medical care. Always follow your healthcare professional's instructions. Patient Education Music Director entender [employer]) El [employer] de los Estados [...] de granos orestes parte de sarita noam. Manuel Garcia Ii incluye panes, pasta, cereales, tortillas y grits [...] esta cantidad de los alimentos que come. [phone] [employer]. [address] [place] [address]. Todos los derechos reservados. Esta informacin no [...] importante Compre condones lubricados o utilice lubricante. Manuel Garcia Ii ofrece mayor comodidad y reduce el riesgo [...] del condn a medida que lo extrae. Manuel Garcia Ii evitar que se le salga el condn. [...] eloy en algn momento de yue vidas. Fdiel vez desee esperar hasta estar convencido de que est listo para tener re laciones sexuales. Quizs quiera lui un descanso de las responsabilidades que supone tener relaciones sexuales; o es posible que quiera conocer mejor a leyva henry antes de kaitlynn el siguiente paso. La abstinencia es dyllan decisin que usted puede lui ahora para proteger leyva futuro. [phone] [employer]. [address] [place] [address], [place] [address]. Todos los derechos reservados. Esta informacin no pretende sustituir la atencin mdica profesional. Slo leyva mdico puede diagnosticar y tratar un problema de xiang. Patient Education Qu es el VIH y el SIDA Es importante saber tool checker puede entrar el VIH en el cuerpo y qu pasa dyllan vez que haya entrado. Entonces, estar mejor preparado para protegerse a usted mismo y a otros contra sarita virus. Dyllan personaque tiene el VIH puede verse y sentirse perfectamente. Bhakti mahnaz persona puede contagiar de VIH a otros stanley pronto est infectado. Si mantiene relaciones sexuales inseguras y sin proteccin, o comparte agujas, corre el riesgo de contraer el VIH. Consulte a leyva proveedor de atencin mdica sobre tool checker protegerse a usted mismo y asus seres queridos contra el contagio del VIH. Music Director evoluciona la infeccin por el VIH Despus [...] de que el virus entra al organismo. Manuel Garcia Ii se denomina sndrome retroviral liz. Los sntomas [...] atacar al cerebro y al sistema nervioso. Manuel Garcia Ii causa convulsiones y prdida de lamemoria y el movimiento corporal. Tambin afecta muchas otras partes del cuerpo. Manuel Garcia Ii genera problemas ruddy anemia, recuento bajo de glbulos blancos, diarrea, dolor estomacal, problemas en la piel ymuchos otros. Music Director entra el VIH al cuerpo El VIH [...] el momento del parto o al amamantarlo. [phone] [employer]. [address] [place] [address], [place] [address]. Todos los derechos reservados. Esta informacin no [...] to anemia. Was started on OCPs by [facility] and menses are now not as [...] file Gets together: Not on file Attends sikhism service: Not on file Active member of [...] Asked Social History Narrative Pt states her sikhism preference is Gnosticism Pt lives with her family No domestic [...] Desires to continue OCPs Referral placed to [facility] - CONSULT/REFERRAL PLANNING MANAGER ([facility] ) - Norethindrone Acet-Ethinyl Est (AVEL 1.5, ,) 1.5-30 mg-mcg per tablet; Take 1 tablet by mouth daily. Dispense: 1 Package; Refill: 3 4. BMI 22.0-22.9, adult 5. Subserous leiomyoma of uterus - CONSULT/REFERRAL PLANNING MANAGER ([facility] worker [facility] ) 6. Screen for STD (sexually [...] BCM: OCP 3) LMP: 02/28/2020 4) Last Bellerose: 4+ months 5) Last Pap: 02/20/2019 Results: [...] Team Description 03/09/2020 Appointment Radiology Roxanna Brooks, INDEPENDENT TRADER [address] [place], [place] [address] [phone] 03/10/2020 Office Visit [facility] Name [...] Group BCBS [facility] [id number] 2019-Jayne [phone] [address] PPO/POS [facility] [id number] [place] [address] documented as of this encounter Advance Directives Name Relationship Healthcare Agent Communication Relationship Sherman Santiago Spouse Health Care Agent Bony Miranda Child [facility] [phone] Care Agent (Mobile) "
[2020-05-02] MEDS ORDERED: ONDANSETRON 4 MG/2 ML VIAL ONE (15:49)
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
[2020-05-02] MEDS ORDERED: ONDANSETRON 4 MG (ODT) TAB ONE (15:56)
[2020-05-02] MEDS ORDERED: HYDROCODONE/APAP 5/325 MG TAB ONE (16:15)
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
[2020-05-02] MEDS ORDERED: PROMETHAZINE INJ 25 MG/ML AMP ONE (16:46)
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
[2020-05-02 17:30] VITALS: TEMP 98.3
[2020-05-02 17:40] VITALS: BP 116/76; O2SAT 98
== END 2020-05-02 17:17 | disposition home or self-care (01) ==
LOC: ER 14:28
DX: F07.81 Postconcussional syndrome (principal); G89.11 Acute pain due to trauma; V49.40XA Driver injured in collision with unspecified motor vehicles in traffic accident, initial encounter
CPT/HCPCS: 72131; 70450; 72125; 71045; 96372; 99284; J2550; G0390; J2405

== ENCOUNTER 2020-05-12 14:33 | Emergency (ER) | payer BC ==
--- OUTSIDE RECORDS SUMMARY | 2020-05-12 16:38 | XMS REPORT | Continuity of Care Document ---
:1970 Author Organization [facility] [employer] Care Team Providers Name Role Phone [facility] [employer] Unavailable Un available Problems Problem Status Onset Classification Date Comments Sourc e Date Reported ANEMIA Active 11/07/19 [facility] [place] ANEMIA/TRANSFUSION [facility] [place] Anemia due to Active Problem 04/16/[address] [facility] dical blood loss Group (disorder) Menorrhagia Active [...] Problem 04/16/2020 Medical (finding) Group ANEMIA, Active [facility]PECIFIED [place] Medications Medication Details Route Status Patient Ordering Order Source Instructions Provider Date gabapentin 300 300 mg = 1 Active Med ical MG Oral Capsule cap, PO, 020 Group BID, # 60 cap, 1 Refill(s), Pharmacy: [facility] [place], 152.4, cm, 04/14/20 13:11:00 CDT, Height, 53.835, kg, 04/14/20 13:11:00 CDT, Weight {21 (Ethinyl 3 tab, PO, Active Medic al Estradiol 0.03 Daily, # 28 020 Group MG / tab, 5 norethindrone Refill(s), acetate 1.5 MG Pharmacy: Oral Tablet) } [facility] Pack [facility], 152.4, cm, 01/06/20 14:42:00 CDT, Height, 53.864, kg, 01/06/20 14:42:00 CDT, Weight Loestrin 21 Loestrin 21 No Longer MH 1.5 oral 1.5 oral Active 020 [place] tablet tablet, 1 tab, Drug form: TAB, Route: PO, Daily, 11/08/19 9:00:00 CDT, Duration: 30 day, Stop date: 12/07/19 9:00:00 CDT [place] 1.12/18 [facility] Inactive MH 21-day tablet 1.12/18 020 [place] 21-day tablet, 1 tab, Drug form: MISC, Route: PO, Daily, 11/08/19 9:00:00 CDT, Duration: 30 day, Stop date: 12/07/19 9:00:00 CDT, 0 sennosides, [facility] Notes: No Longer MH 8.6 MG Oral (Same as: Active 020 [place] Tablet Senokot) {21 (Ethinyl 3 tab, PO, Active MH Estradiol 0.03 Daily, 0 020 [place] MG / Refill(s) norethindrone acetate 1.5 MG Oral Tablet) } Pack [[facility] .12/18] ferrous sulfate 325 mg = 1 Active MH 325 MG Oral tab, PO, 020 [place] Tablet Daily, 0 Refill(s) ferrous sulfate Notes: Give No Longer MH with food. Active 020 [place] "Do Not Crush" normal saline 1,000 mL, No Longer MH 0.9% IV 1,000 mL Rate: 75 Active 020 [place] ml/hr, Infuse over: 13.3 hr, Route: IV, Dosing Weight 51.392 kg, Total Volume: 1,000, Start date: 11/07/19 11:13:00 CDT, Duration: 30 day, Stop date: 12/07/19 11:12:00 CDT, 1.49, m2, 0 Sodium Chloride 250 mL, No Longer MH 0.9% (titrate) Rate: To Active 020 [place] 250 mL prime line and flush remaining blood products., Dosing Weight 51.392, kg, Route: IV, Total Volume: 250, Priority: Routine, Start Date: 11/07/19 11:05:00 CDT, Duration: 1 day, Stop date: 11/08/19 11:04:00 CDT, Replace Every: 24 hr, 0 Dextrose 50% 12.5 gm, 25 No Longer Syringe (D50W) mL, Route: Active [facility] nd IVP, Drug Form: INJ, Dosing Weight 51.392, kg, PRN, PRN Blood Glucose Results, Start date: 11/07/19 11:04:00 CDT, Duration: 30 day, Stop date: 12/07/19 11:03:00 CDT, 0 Glucagon 1 mg, No Longer Route: IM, Active [place] Drug form: PDR/INJ, PRN, Dosing Weight 51.392, [...] directed, # 84 tab, 3 Refill(s), Pharmacy: [facility] meloxicam 15 mg 15 mg = 1 Active Med ical oral tablet tab, PO, 020 Group Daily, PRN Pain, # 90 tab, 1 Refill(s), Pharmacy: [facility] Ondansetron 4 MG 4 mg = 1 Active Med ical Disintegrating tab, PO, 020 Group Tablet TID, PRN Nausea / Vomiting, Dissolve tab under tongue, # 30 tab, 0 Refill(s), Pharmacy: [facility] meloxicam 15 mg 15 mg = 1 Inactive Me dical oral tablet tab, PO, 020 Group Daily, PRN Pain, # 90 tab, 1 Refill(s), Pharmacy: [facility] Ondansetron 4 MG 4 mg = 1 Inactive Me dical Disintegrating tab, PO, 020 Group Tablet TID, PRN Nausea / Vomiting, Dissolve tab under tongue, # 30 tab, 0 Refill(s), Pharmacy: [facility] [place] #1 {21 (Ethinyl 1 tab, PO, Inactive Medi marlen Estradiol 0.03 Daily, take 020 Group MG / 3 pills a norethindrone day x 5 acetate 1.5 MG days, then Oral Tablet) } 2 pills a Pack [Loestrin day x 5 1.5/30 21 Day] days, then one a day as directed, # 84 tab, 3 Refill(s), Pharmacy: [facility] [place] Allergies, Adverse Reactions, Alerts No Known Medication Allergies Immunizations No Data Provided for This Section Results Order Name Results Value Reference Date Interpretation Comments Angeli rce Range HEMATOLOGY Segs 67.3 45.0 - 11/07 MH 75.0 [place] HEMATOLOGY Lymphocytes 23.4 20.0 - 11/07 MH 40.0 [place] HEMATOLOGY Monocytes 7.3 2.0 - 12.0 11/07 [place] HEMATOLOGY Eosinophils 1.4 0.0 - 4.0 11/07 [place] HEMATOLOGY Basophils 0.6 0.0 - 1.0 11/07 [place] HEMATOLOGY Neutrophils 5.9 1.5 - 8.1 11/07 MH # [place] HEMATOLOGY Lymphocytes 2.0 1.0 - 5.5 11/07 MH # [place] HEMATOLOGY Monocytes # 0.6 0.0 - 0.8 11/07 [place] HEMATOLOGY Eosinophils 0.1 0.0 - 0.5 11/07 MH # [place] HEMATOLOGY Basophils # 0.1 0.0 - 0.2 11/07 [place] HEMATOLOGY Microcyte 1+ None Seen 11/07 *ABN* [place] (11/08/19 1:41 AM) HEMATOLOGY WBC 8.7 3.7 - 10.4 11/07 [place] HEMATOLOGY RBC 3.32 4.20 - 11/07 5.40 [place] HEMATOLOGY Hgb 9.1 12.0 - 11/07 16.0 [place] HEMATOLOGY Hct 26.2 36.0 - 11/07 MH 48.0 [place] HEMATOLOGY MCV 78.8 80.0 - 11/07 MH 98.0 [place] HEMATOLOGY MCH 27.3 27.0 - 11/07 MH 31.0 [place] HEMATOLOGY MCHC 34.7 32.0 - 11/07 MH 36.0 [place] HEMATOLOGY RDW 20.0 11.5 - 11/07 MH 14.5 [place] HEMATOLOGY Platelet 259 133 - 450 11/07 [place] HEMATOLOGY MPV 8.8 7.4 - 10.4 11/07 [place] ANEMIA Ferritin Lvl 3 5 - 204 11/06 STUDY /2019 [place] ANEMIA Iron 256 30 - 160 11/06 STUDY [place] ANEMIA TIBC 461 228 - 428 11/06 STUDY [place] ANEMIA UIBC 205 110 - 370 11/06 STUDY [place] ANEMIA % Satur Fe 56 12 - 57 11/06 STUDY [place] ANEMIA Folate Lvl 21.4 >=3.0 11/06 STUDY ng/mL [place] ANEMIA Vitamin B12 302 254 - 1320 11/06 STUDY Lvl /2019 [place] BLOOD BANK ABO/Rh B POS 11/06 RESULTS /2019 [place] BLOOD BANK Antibody Negative 11/06 RESULTS Scrn (11/07/19 11:46 AM) [place] and CHEM PANEL LDH 170 98 - 192 11/06 [place] CHEM PANEL Bili Total 0.3 0.2 - 1.3 11/06 [place] CHEM PANEL Bili Direct <0.1 0.0 - 0.3 11/06 [place] CHEM PANEL Bili Unable to 0.0 - 1.0 11/06 Indirect Calculate [place] HEMATOLOGY Retic Auto 2.9 0.5 - 1.5 11/06 [place] HEMATOLOGY WBC 7.4 3.7 - 10.4 11/06 [place] HEMATOLOGY RBC 2.06 4.20 - 11/06 MH 5.40 /2019 [place] HEMATOLOGY Hgb 4.7 12.0 - 11/06 Result MH 16.0 Comment: [place] Critical Result(s) called to Tomas Naranjo at 11/07/2019 12:01 by Bonnie Abreu. Read back OK. Consistent with patient condition per RN. HEMATOLOGY Hct 14.5 36.0 - 11/06 Result MH 48.0 Comment: [place] Critical Result(s) called to Tomas Naranjo at 11/07/2019 12:01 by Bonnie Abreu. Read back OK. Consistent with patient condition per RN. HEMATOLOGY MCV 70.4 80.0 - 11/06 MH 98.0 [place] HEMATOLOGY MCH 22.8 27.0 - 11/06 MH 31.0 /2019 [place] HEMATOLOGY MCHC 32.4 32.0 - 11/06 MH 36.0 [place] HEMATOLOGY RDW 16.6 11.5 - 04 MH 14.5 /2019 [place] HEMATOLOGY Platelet 330 133 - 450 04 MH /2019 [place] HEMATOLOGY MPV 8.5 7.4 - 10.4 11/06 MH /2019 [place] HEMATOLOGY Segs 79.7 45.0 - 11/06 MH 75.0 [place] HEMATOLOGY Lymphocytes 14.9 20.0 - 11/06 MH 40.0 [place] HEMATOLOGY Monocytes 4.7 2.0 - 12.0 11/06 MH /2019 [place] HEMATOLOGY Eosinophils 0.3 0.0 - 4.0 11/06 MH /2019 [place] HEMATOLOGY Basophils 0.4 0.0 - 1.0 11/06 MH /2019 [place] HEMATOLOGY Neutrophils 5.9 1.5 - 8.1 11/06 MH # /2019 [place] HEMATOLOGY Lymphocytes 1.1 1.0 - 5.5 11/06 MH # /2019 [place] HEMATOLOGY Monocytes # 0.3 0.0 - 0.8 11/06 MH /2019 [place] HEMATOLOGY Microcyte 2+ None Seen 11/06 MH *ABN* /2019 [place] (11/07/19 11:46 AM) BLOOD BANK RBC product Product available 1 11/06 Resul t RESULTS (11/07/19 11:06 AM) Comment: [facility] 11/07/2019 13:10 [id number]
Blood available, notified Dayan at 11/07/2019 13:07 [...] or approved by
the FDA or the extern of the assay.
FA STING:NO

FASTING: NO

Lab test performed by:
[facility]
[address] [place] [address]
[place] [address]
[facility] HEMATOLOGY WBC X 10x3 6.0 3.8 - 10.8 11/05 Result Comment: Medical
Lab Group test performed by:
[facility]
[address] [facility]
[place] [address]
[facility] HEMATOLOGY RBC X 10x6 2.19 3.80 - 11/05 MH 5.10 Medical [facility] HEMATOLOGY Hgb 4.7 11.7 - 11/05 Result MH 15.5 Comment: Medical Verified by Group repeat analysis. HEMATOLOGY Hct 16.0 35.0 - 11/05 Result MH 45.0 Comment: Medical Verified by Group repeat analysis. HEMATOLOGY MCV 73.1 80.0 - 11/05 MH 100.0 /2019 Medical [facility] HEMATOLOGY MCH 21.5 27.0 - 11/05 MH 33.0 Medical [facility] HEMATOLOGY MCHC 29.4 32.0 - 11/05 MH 36.0 /2019 Medical [facility] HEMATOLOGY RDW 14.7 11.0 - 11/05 MH 15.0 Medical [facility] HEMATOLOGY Platelet 313 140 - 400 11/05 /2019 Medical [facility] HEMATOLOGY MPV 11.1 7.5 - 12.5 11/05 /2019 Medical [facility] HEMATOLOGY Neutrophils 3876 1500 - 11/05 MH # 7800 /2019 Medical Group HEMATOLOGY Lymphocytes 1608 850 - 3900 11/05 MH # /2019 [facility] HEMATOLOGY Monocytes # 390 200 - 950 11/05 [facility] HEMATOLOGY Eosinophils 108 15 - 500 11/05 # /2019 Medical [facility] HEMATOLOGY Basophils # 18 0 - 200 11/05 /2019 Medical [facility] HEMATOLOGY Segs 64.6 11/05 /2019 Medical Group [...] Source [employer] w PROCEDURE INFORMATION: 11/07/2019 [facility] Transva non OB US Exam: US Pelvis [...] Jason Arita MD On 11/07/2019 16:41:13; VR-W [id number] Consultation Notes No Data Provided for This [...] Medical Gr oup Heart Rate 64 11/08/2019 [place] Respitory Rate 18 11/08/2019 [place] Systolic (mm Hg) 98 11/08/2019 [place] Diastolic (mm Hg) 58 11/08/2019 [place] Heart Rate 65 11/08/2019 [place] Respitory Rate 18 11/08/2019 [place] Systolic (mm Hg) 118 11/08/2019 [place] Diastolic (mm Hg) 72 11/08/2019 [place] Heart Rate 72 11/08/2019 [place] Respitory Rate 18 [facility] Systolic (mm Hg) 95 11/08/2019 [facility] Diastolic (mm Hg) 55 11/08/2019 [place] Temperature Oral (F) 99.1 F 11/07/2019 [place] Temperature Oral (F) 98.1 F 11/07/2019 [place] Height 152.4 cm 11/07/2019 [place] Weight 49.773 11/07/2019 [place] BMI Calculated 21.43 11/07/2019 [place] Systolic (mm Hg) 107 11/06/2019 [facility] Group Diastolic (mm Hg) 58 11/06/2019 [facility] Group Heart Rate 93 11/06/2019 Medical Grou p Height 152.4 cm 11/06/2019 [facility] Gr[facility] p Weight 51.392 11/06/2019 Medical Grou p BMI Calculated 22.13 11/06/2019 Medical Gr oup Encounters Location Location Encounter Encounter Reason Attending ADM DC Stat us Source Details Type Number For Provider Date Date Visit Outpatient [id number] Anmol Bynum [facility]05 [facility] Outpatient [id number] Anmol Bynum 11/05 11/06 Primary Jr /2019 [facility] Between [id number] 11/06 11/07 Primary Visit /2019 [facility] Inpatient [id number] An 11/06 11/07 [place] Nunez /2019 [facility] Outpatient [id number] Anmol Bynum 11/16 [facility] Outpatient [id number] Anmol Bynum 11/16 11/17 Primary Jr /2019 [facility] [place] Outpatient [id number] Kathie 01/05 [facility] n [facility] Outpatient [id number] Kathie 01/05 01/06 Primary Recavarren /2019 [facility] Phone [id number] 01/11 01/13 Primary Message /2019 [facility] Phone [id number] 01/11 01/13 Primary Message /2019 [facility] [place] Outpatient [id number] Kathie 04/14 [facility]2020 Nicolas n Brock [facility] Outpatient [id number] Kathie 04/14 04/15 Primary Recavarren /2019 Medic al [facility] [place] Outpatient [id number] Kathie 05/17 [facility]2020 [facility] Outpatient [id number] Kathie 10/13 [facility]2020 [facility] Procedures No Data Provided [...] with improvement in her menstrual bleeding. Pat ient reports feeling weak and lightheade d. Blood work showed ferritin of 3, normal folate and B12. Patient was given 3 units of PRBC and her hemoglobin went up to 9.1. PAST MEDICAL HISTORY: None PAST SURGICAL HISTORY: None SOCIAL HISTORY: Employment/School Details: Status: Employed. Work/School description: [employer] in the [employer] department. Other: , [...] is absent. No significant sonographic abnormalities otherwise asmitaie marty Arita MD On 11/07/2019 16:41:13; [id number] ASSESSMENT AND PLAN: Iron deficiency anemia Likely [...] for discharge from Heme-Onc standoint Extracted from:Title: [facility] Hospitalist Admission History and Physical Author: An Nunez MD Date: 11/07/19 1.Anemia(D64.9) -transfuse 3 units PRBCs -f/u iron studies -cont FeSO4 Ordered: Admit/Condition, 11/07/19 11:05:00 CDT, Status: Inpatient, Telemetry Capable Location, Expected LOS: 2 Midnights, An Nunez MD, Admit MD Review/Approve Yes, Isolation: No Isolation/Standard Precautions, Anemia 2.Menorrhagia(N92.0) -continue Loestrin -pelvic/transvaginal US -needs outpatient [facility] amb 1-2 [place] Plan of Care No [...]
--- OUTSIDE RECORDS SUMMARY | 2020-05-12 16:38 | XMS REPORT | Summary of Care ---
:1970 Author Organization [facility] Primary [facility] [place] Address [address] [place] [address]- Encounter HQ Nusrat_natasha(FIN) [id number] Date(s): 04/14/20 - 04/14/20 [facility] [place] [address] [place] [address]- [phone] Discharge Disposition: Home or Self Care Attending [...] BID, # 60 cap, 1 Refill(s), Pharmacy: [facility] 152.4, cm, 04/14/20 13:11:00 CDT, Height, 53.835, kg, 04/14/20 13:11:00 CDT, Weight Start Date: 04/14/20 Status: Ordered Results No data available for this section Immunizations No data available for this section Procedures Procedure Date Related Diagnosis Body Site Status None Completed Social History Social History Type Response Employment/School Status: Employed. Work/[employer] ol description: [employer] in the [employer] department. Other: , 3 children (the youngest still lives with them). Smoking Status Never smoker; Ready to romero e: No; Exposure to Tobacco Smoke None; Cigarette Smoking Last 365 Days No; Reg Smoking Cessation Counseling No entered on: 04/14/20 Assessment and Plan No data available for this section
--- OUTSIDE RECORDS SUMMARY | 2020-05-12 16:39 | XMS REPORT | Continuity of Care Document ---
:1970 Author Organization [facility] t Address [address] [place] [address] Care Team Providers Name Role Phone Kathie Garcia Attending Clinician Resident [place] Attending Clinician Bronwyn Bynum Jr Attending Clinician Enrique Attending Clinician Enrique Admitting Clinician Problems Condition Condition Condition Status Onset Resolution Last Treating Co mments Source Name Details Category Date Date Treatment Clinician Date ANEMIA Diagnosis Active 2019-11-11 Mem oria 11-06 21:57:00 l ANEMIA 00:00: Albar[place] 00 Active 11/07/2019 [facility] [place] ANEMIA/TRA Diagnosis Active 2019-11-07 Memoria NSFUSION 11-06 10:42:00 l 00:00: [place] ANEMIA/TRA 00 NSFUSION Active 11/07/2019 [facility] [place] Anemia due Problem Active 2020-04-16 M emoria to blood 23:56:24 l loss Anemia Albaro (disorder) due to blood loss (disorder) Active Problem 04/16/2020 [facility] Menorrhagi Problem Active 2020-04-16 M emoria a 23:56:24 l (finding) [place] Menorrhagi a (finding) Active Problem 04/16/2020 [facility] Uterine Problem Active 2020-04-16 Hammad genaro leiomyoma 23:56:24 l (disorder) Uterine Her nolen leiomyoma (disorder) Active Problem 04/16/2020 [facility] Breast Problem Active 2020-04-16 Memor ia neoplasm 23:56:24 l screening Breast Tish nn (procedure neoplasm ) screening (procedure ) Active Problem 04/16/2020 [facility] Patient Problem Active 2020-04-16 Hammad genaro encounter 23:56:24 l status Patient [place] (finding) encounter status (finding) Active Problem 04/16/2020 [facility] Screening Problem Active 2020-04-16 Me moria status 23:56:24 l (finding) [place] Screening status (finding) Active Problem 04/16/2020 [facility] 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 23:56:24 l (disorder) Nicolas n Cobalamin deficiency (disorder) Active Problem 04/16/2020 [facility] Mixed Problem Active 2020-04-16 Memor ia hyperlipid 23:56:24 l emia Mixed [place] (disorder) hyperlipid emia (disorder) Active Problem 04/16/2020 [facility] Numbness Problem Active 2020-04-16 Mem oria of hand 23:56:24 l (finding) Numbness Her nolen of hand (finding) Active Problem 04/16/2020 [facility] ANEMIA, Diagnosis Active 2019-11-11 Me moria UNSPECIFIE 21:57:00 l D ANEMIA, Albaro UNSPECIFIE D Active [facility] Allergies, Adverse Reactions, Alerts This patient has no known allergies or adverse reactions. Social History Social Habit Start Date Stop Date Quantity Comments Source Social History 2019-11-06 2019[facility]11-06 [facility] 18:48:30 18:48:30 Medications Ordered Filled Start Stop Current Ordering Indication Dosage Frequency Signature Comments Components Source Medication Medication Date Date Medication? Clinician (SIG) Name Name gabapentin Yes 300 mg = 1 M emoria 300 MG Oral 9-24 cap, PO, l Capsule 18:33: BID, # 60 Tish nn 00 cap, 1 Refill(s), Pharmacy: [facility] [place], 152.4, cm, 04/14/20 13:11:00 CDT, Height, 53.835, kg, 04/14/20 13:11:00 CDT, Weight { Yes 3 tab, PO, Memoria (Ethinyl 6-24 Daily, # l Estradiol 12:33: 28 tab, 5 Her nolen 0.03 MG / 00 Refill(s), norethindro Pharmacy: ne acetate HEB 1.5 MG Oral Pharmacy Tablet) } [place] Pack [[place] #1, 152.4, 1.530] cm, 01/06/20 14:42:00 CDT, Height, 53.864, kg, 01/06/20 14:42:00 CDT, Weight Loestrin 21 No Loestrin Me moria 1.530 oral 4-19 21 1.5/30 l tablet 14:00: oral Albaro 00 tablet, 1 tab, Drug form: TAB, Route: PO, Daily, 11/08/19 9:00:00 CDT, Duration: 30 day, Stop date: 12/07/19 9:00:00 CDT [place] No [place] Memoria 1.530 4-19 1.5/30 l -day 14:00: 21-day Albaro tablet 00 tablet, 1 tab, Drug form: MISC, Route: PO, Daily, 11/08/19 9:00:00 CDT, Duration: 30 day, Stop date: 12/07/19 9:00:00 CDT, 0 sennosides, No Notes: Hammad genaro [facility] 8.6 MG 4-18 (Same as: l Oral Tablet 22:00: Senokot) He rmann 00 { Yes 3 tab, PO, Memoria (Ethinyl 4-18 Daily, 0 l Estradiol 16:36: Refill(s) Her noeln 0.03 MG / 00 norethindro ne acetate 1.5 MG Oral Tablet) } Pack [[place] 1.5] ferrous Yes 325 mg = 1 Hammad genaro sulfate 325 4-18 tab, PO, l MG Oral 16:36: Daily, 0 Nicolas n Tablet 00 Refill(s) ferrous No Notes: Memoria sulfate 4-18 Give with l 16:14: food. "Do [place] 00 Not Crush" normal 2020-0 No 1,000 mL, Memori a saline 0.9% 4-18 Rate: 75 l IV 1,000 mL 16:13: ml/hr, Infuse over: 13.3 hr, Route: IV, Dosing Weight 51.392 kg, Total Volume: 1,000, Start date: 11/07/19 11:13:00 CDT, Duration: 30 day, Stop date: 12/07/19 11:12:00 CDT, 1.49, m2, 0 Sodium 2020-0 No 250 mL, Memoria Chloride 4-18 Rate: To l 0.9% 16:05: prime line [place] (titrate) 00 and flush 250 mL remaining blood products., Dosing Weight 51.392, kg, Route: IV, Total Volume: 250, Priority: Routine, Start Date: 11/07/19 11:05:00 CDT, Duration: 1 day, Stop date: 11/08/19 11:04:00 CDT, Replace Every: 24 hr, 0 Dextrose 2020-0 No 12.5 gm, Memor ia 50% Syringe -18 25 mL, l (D50W) 16:04: Route: IVP, Drug Form: INJ, Dosing Weight 51.392, kg, PRN, PRN Blood Glucose Results, Start date: 11/07/19 11:04:00 CDT, Duration: 30 day, Stop date: 12/07/19 11:03:00 CDT, 0 Glucagon 2020-0 No 1 mg, Memoria 4-18 Route: IM, l 16:04: Drug form: PDR/INJ, PRN, Dosing Weight 51.392, [...] directed, # 84 tab, 3 Refill(s), Pharmacy: [facility] meloxicam 2020-0 Yes 15 mg = 1 Mem oria 15 mg oral 4-17 tab, PO, l tablet 19:13: Daily, PRN Tish nn 00 Pain, # 90 tab, 1 Refill(s), Pharmacy: [facility] Ondansetron 2020-0 Yes 4 mg = 1 Me moria 4 MG 4-17 tab, PO, l Disintegrat 19:13: TID, PRN He rmann ing Tablet 00 Nausea / Vomiting, Dissolve tab under tongue, # 30 tab, 0 Refill(s), Pharmacy: [facility] meloxicam 2020-0 No 15 mg = 1 Mem oria 15 mg oral 4-17 tab, PO, l tablet 19:12: Daily, PRN Tish nn 00 Pain, # 90 tab, 1 Refill(s), Pharmacy: [facility] Ondansetron 2020-0 No 4 mg = 1 Me moria 4 MG 4-17 tab, PO, l Disintegrat 19:12: TID, PRN He rmann ing Tablet 00 Nausea / Vomiting, Dissolve tab under tongue, # 30 tab, 0 Refill(s), Pharmacy: [facility] {21 2020-0 No 1 tab, PO, Memoria (Ethinyl 4-17 Daily, l Estradiol 19:02: take 3 Nicolas n 0.03 MG / 00 pills a norethindro day x 5 ne acetate days, then 1.5 MG Oral 2 pills a Tablet) } day x 5 Pack days, then [Loestrin one a day as Day] directed, # 84 tab, 3 Refill(s), Pharmacy: [facility] [place] Vital Signs Vital Name Observation Time Observation Value Comments Source Systolic (mm Hg) 2020-04-14 18:06:00 Hammad rial [place] Diastolic (mm Hg) 2020-04-14 18:06:00 Mem orial [place] Heart Rate 2020-04-14 18:06:00 [facility] Temperature Oral (F) 2020-04-14 18:06:00 97.2 F [facility] Height 2020-04-14 18:06:00 152.4 cm [facility] Weight 2020-04-14 18:06:00 [facility] [place] BMI Calculated 2020-04-14 18:06:00 Memori al [place] Systolic (mm Hg) 2020-01-06 19:42:00 Hammad rial [place] Diastolic (mm Hg) 2020-01-06 19:42:00 Mem orial [place] Heart Rate 2020-01-06 19:42:00 [facility] [place] Temperature Oral (F) 2020-01-06 19:42:00 98.4 F [facility] [place] Height 2020-01-06 19:42:00 152.4 cm [facility] [place] Weight 2020-01-06 19:42:00 [facility] [place] BMI Calculated 2020-01-06 19:42:00 Memori al [place] Systolic (mm Hg) 2019-11-17 19:42:00 Hammad rial [place] Diastolic (mm Hg) 2019-11-17 19:42:00 Mem orial [place] Heart Rate 2019-11-17 19:42:00 [facility] [place] Temperature Oral (F) 2019-11-17 19:42:00 98.6 F [facility] [place] Height 2019-11-17 19:42:00 152.4 cm [facility] [place] Weight 2019-11-17 19:42:00 [facility] [place] BMI Calculated 2019-11-17 19:42:00 Memori al [place] Heart Rate 2019-11-08 17:00:00 [facility] [place] Respitory Rate 2019-11-08 17:00:00 Memori al [place] Systolic (mm Hg) 2019-11-08 17:00:00 Hammad rial [place] Diastolic (mm Hg) 2019-11-08 17:00:00 Mem orial [place] Heart Rate 2019-11-08 13:00:00 [facility] [place] Respitory Rate 2019-11-08 13:00:00 Memori al [place] Systolic (mm Hg) 2019-11-08 13:00:00 Hammad rial [place] Diastolic (mm Hg) 2019-11-08 13:00:00 Mem orial [place] Heart Rate 2019-11-08 09:05:00 [facility] [place] Respitory Rate 2019-11-08 09:05:00 Memori al [place] Systolic (mm Hg) 2019-11-08 09:05:00 Hammad rial [place] Diastolic (mm Hg) 2019-11-08 09:05:00 Mem orial [place] Temperature Oral (F) 2019-11-07 21:00:00 99.1 F [facility] [place] Temperature Oral (F) 2019-11-07 17:00:00 98.1 F [facility] [place] Height 2019-11-07 16:29:00 152.4 cm [facility] [place] Weight 2019-11-07 16:29:00 [facility] [place] BMI Calculated 2019-11-07 16:29:00 Memori al [place] Systolic (mm Hg) 2019-11-06 18:39:00 Hammad rial [place] Diastolic (mm Hg) 2019-11-06 18:39:00 Mem orial [place] Heart Rate 2019-11-06 18:39:00 [facility] [place] Height 2019-11-06 18:39:00 152.4 cm [facility] [place] Weight 2019-11-06 18:39:00 [facility] [place] BMI Calculated 2019-11-06 18:39:00 Memori al [place] Procedures This patient has no known procedures. Encounters Start End Encounter Admission Attending Care Care Encounter Source Date/Time Date/Time Type Type Clinicians Facility Department ID 2020-04-14 2020-04-14 [id number] 13:30:00 23:59:59 Vinod, 06 Kathie Berrios 2020-03-10 2020-03-10 Office [facility] [id number] 14:45:17 16:29:30 Visit [facility] [id number] [facility] [id number] 2020-01-12 2020-01-13 Outpatient MG [facility] [id number] 16:13:27 23:59:59 01 2020-01-12 2020-01-13 Outpatient MHMG [facility] [id number] 16:09:49 23:59:59 00 2020-01-06 2020-01-06 Outpatient Recavarren [facility] [id number] 14:30:00 23:59:59 Vinod, 03 Kathie Berrios 2019-11-17 2019-11-17 Outpatient MAGAN BynumMG [facility] [id number] 14:30:00 23:59:59 Anmol 05 2019-11-07 2019-11-08 Outpatient DEBBY Nunez [facility] [id number] 11:06:00 17:00:00 An 09 2019-11-07 2019-11-08 Outpatient [facility] [id number] 07:35:11 07:35:11 00 2019-11-07 2019-11-07 Inpatient U [facility] MED [id number] [facility] 11:06:00 10:17:00 2019-11-06 2019-11-06 Outpatient Fletcher [facility] [id number] 13:30:00 23:59:59 Anmol 04 Results Test Description Test Time Test Comments Results Result Comments Source HEMATOLOGY 2019-11-08 67.3 [facility] 06:41:00 [place] HEMATOLOGY 2019-11-08 23.4 [facility] 06:41:00 [place] HEMATOLOGY 2019-11-08 7.3 [facility] 06:41:00 [place] HEMATOLOGY 2019-11-08 1.4 [facility] 06:41:00 [place] HEMATOLOGY 2019-11-08 0.6 [facility] 06:41:00 [place] HEMATOLOGY 2019-11-08 5.9 [facility] 06:41:00 [place] HEMATOLOGY 2019-11-08 2.0 [facility] 06:41:00 [place] HEMATOLOGY 2019-11-08 0.6 [facility] 06:41:00 [place] HEMATOLOGY 2019-11-08 0.1 [facility] 06:41:00 [place] HEMATOLOGY 2019-11-08 0.1 [facility] 06:41:00 [place] HEMATOLOGY 2019-11-08 1+ [facility] 06:41:00 *ABN*(11/08/19 Albaro 1:41 AM) HEMATOLOGY 2019-11-08 8.7 [facility] 06:41:00 [place] HEMATOLOGY 2019-11-08 3.32 [facility] 06:41:00 [place] HEMATOLOGY 2019-11-08 9.1 [facility] 06:41:00 [place] HEMATOLOGY 2019-11-08 26.2 [facility] 06:41:00 [place] HEMATOLOGY 2019-11-08 78.8 [facility] 06:41:00 [place] HEMATOLOGY 2019-11-08 06:41:00 Test Item Value Reference Range Interpretation Comme nts MCH (test code = MCH) 27.3 pg 27.0-31.0 [facility] [id number] 06:41:0034.7[facility] 2019-11-08 06:41:0020.0[facility] WnhgutsRHKTCEIIAN0279-32-70 06:41:90545Ygnkvieo IrftoutNYAHDHBSCI9653-53-87 06:41:008.8[facility] HermannANEMIA XMPYO6113-87-22 16:46:003[facility] HermannANEMIA OQMYY3265-64-08 16:46:05081Gmdeevgc [place] ANEMIA MTMBZ7463-56-42 16:46:56387Xlwrsatr HermannANEMIA REZHR7297-25-37 16:46:81752Rufcqvvs HermannANEMIA CEIAI9426-33-67 16:46:0056[facility] [place] ANEMIA FQUVJ9190-35-27 16:46:0021.4[facility] HermannANEMIA FZPYY7890-14-95 16:46:21805Vmmjmekh HermannBLOOD BANK RRABBPM1688-29-16 16:46:00Negative (11/07/19 11:46 AM)[facility] HermannCHEM GFZAZ1162-52-69 16:46:79005Itmbohoz HermannCHEM DREMS1972-35-59 16:46:000.3[facility] HermannCHEM JPOCU7039-77-91 16:46:00<0.1[facility] YbaauirHHYAMCBERP3132-59-44 16:46:002.9[facility] [place] MWJMOWMMFW8132-30-50 16:46:007.4[facility] KwmxznyGLVELEXLJR0661-63-45 16:46:00 2.06[facility] YsljesqCIXKUIYOBY3931-94-36 16:46:004.7[facility] HermannHEMATOLOGY 2019-11-07 16:46:0014.5[facility] VepllkhGAZWLXBOGR1744-98-94 16:46:0070.4[facility] CzzxfmvDRAXXASZJL0123-43-84 16:46:00 Test Item Value Reference Range Interpretation Comments MCH (test code = MCH) 22.8 pg 27.0-31.0 [facility] PtrssbdMMJKHFOAES3070-88-33 16:46:0032.4[facility] HermannHEMATOLOGY 2019-11-07 16:46:0016.6[facility] KiohxnuJUIJSVXYDS6735-74-54 16:46:93592Uioodgrf XiealytSWSKKXWWEQ4436-12-80 16:46:008.5[facility] RpatqfdPIIKKDZXPX2706-86-35 16:46:0079.7[facility] QavrgaeQQDGHLXNCW6863-17-72 16:46:0014.9[facility] [place] VXRWMSLCJG3551-92-39 16:46:004.7[facility] AcwphecLNLKHQCGLQ1134-14-05 16:46:000.3 [facility] RosjnfkVADSBSNRTT2830-71-28 16:46:000.4[facility] HermannHEMATOLOGY 2019-11-07 16:46:005.9[facility] XpxulevUDOVZSBKYR1082-18-30 16:46:001.1[facility] UuxsroqEFRNVYQVAA9702-33-17 16:46:000.3[facility] EmkriynLSTSMOFVPR0850-69-04 16:46:002+ *ABN*(11/07/19 11:46 AM)[facility] XJFPALA2583-94-08 16:06:00Product available 1(11/07/19 11:06 AM)[facility]annENDOCRINOLOGY 2019-11-06 05:00:00<2[facility] MxzwbcbTXKKXOSAEL6187-40-35 05:00:006.0[facility] IizyjfhZSTYRCWHOR7135-57-68 05:00:002.19[facility] InfpbrvPFAAAXQRZI2393-76-81 05:00:004.7[facility] PfqdcsoASAQVKSPRK5197-28-58 05:00:0016.0[facility] [place] OQNNQNJUGW1175-27-54 05:00:0073.1[facility] XiuhzxxXFIABTYNHU7152-35-64 05:00:00 Test Item Value Reference Range Interpretation Comments MCH (test code = MCH) 21.5 pg 27.0-33.0 Memorial ZfmwrnyZQPCDNDWYK7097-77-48 05:00:0029.4[facility] HermannHEMATOLOGY 2019-11-06 05:00:0014.7[facility] TxukrwgYXXIITUEXQ7647-85-32 05:00:27190Iafryvzy YiqcwuxHDDSDMCOIZ3898-69-90 05:00:0011.1[facility] RpiaeoeZACTUGAFQH1221-90-68 05:00:744527Jcaielsu ZqfojpmOGWHPXLCGK8211-03-03 05:00:056763Finvfilj [place] CSMNCMKJBW1258-44-84 05:00:67436Balygwqy LekzxgjODBPHVPTYC9826-80-95 05:00:41287 Memorial HvvzlgwNWSFDZJVAE2274-48-23 05:00:0018[facility] HermannHEMATOLOGY 2019-11-06 05:00:0064.6[facility] ArqbwsyHYPYOMBPCK5815-93-14 05:00:0026.8[facility] FhfmbcfMOOJJBNOJD5942-53-75 05:00:006.5[facility] DnmpqocGEHCSLQRRS4621-17-93 05:00:001.8[facility] GadiqazWOLUWINXTY8444-15-40 05:00:000.3[facility] [place]
--- OUTSIDE RECORDS SUMMARY | 2020-05-12 16:39 | XMS REPORT | Summary of Care ---
:1970 Author Organization [facility] Address [address] [place] [address] Care Team Providers Name Role Phone Pcp, Patient Does Not Have A Primary Care Provider +1-000-00 0-0000 Reason for Referral Radiology Services (Routine) Status Reason Specialty Diagnoses / Referred By Referred To Procedures Contact Contact New Request Diagnostic Diagnoses Breast cancer screening by mammogram Roxanna Brooks Radiology Procedures BI SCREENING MAMMOGRAM BILATERAL N, COMMUNICATION SPECIALIST [address] [place] [address] (Routine) Status Reason Specialty Diagnoses / Referred By Referred To Procedures Contact Contact New Request Obstetrics & Diagnoses Menorrhagia with regular cycle Subserous leiomyoma of uterus Roxanna Brooks Gynecology Procedures CONSULT/REFERRAL MEAT COUNTER CLERK ([facility] ) Tammy COMMUNICATION SPECIALIST [address] [place] [id number] Reason for Visit Reason Comments Well Woman Exam Encounter Details Date Type Department Care Team Description [facility]2020 [facility] Wel l woman exam (Primary Dx); [facility] Breast cancer screening by mammogram; [address] Menorrhagia with regular cycle; [address] BMI 22.0-22.9, adult; [place] [address] Subserous leiomyoma of uterus; [address] Screen for STD (sexually transmitted dis ease) [phone] Allergies No Known Allergiesdocumented as of this [...] exam 11/12/2014 01/14/2017 Overview: ICD10 Diagnosis Term Pe Teacher Utility Irregular menstrual cycle 11/12/2014 09/29/2015 Screen for STD (sexually transmitted disease) 11/12/2014 09/29/2015 Encounter for routine gynecological examination 11/18/2012 11/12/2014 Overview: Medical records received. DOS- 03/20/2013- Bilateral mammogram- Impression: incomplete assessment. Breast US- impression: benign. No sonographic evidence of malignancy. Bilateral cysts. ICD10 Diagnosis Term Pe Teacher Utility Contraceptive management 11/18/2012 01/14/2017 Overview: ICD10 Diagnosis Term Pe Teacher Utility Need for prophylactic vaccination with combined 11/18/2012 11/12/2014 aduckkmzev-mwdtghh-tictvghdc (DTP) vaccine Dysuria 11/18/2012 11/12/2014 Pain pelvic [...] manera ms eficaz. Igualmente, puede preguntar sobre hydroponics grower el embarazo, los implantes de seno o [...] o BRCA2 u otras determinadas mutaciones genticas Afustino tenido ms menstruaciones por faustino empezado a [...] sobre lo que es mejor para usted. [phone] [employer] [address] [place] [address], [place] [address]. Todos los derechos reservados. Esta informacin no [...] hijos. En los restaurantes de comida rpida [place] stacy en restaurantes de comida rpida requiere [...] porcin para que la compartan entre todos. Tolu kaitlynn a todos la oportunidad de saborear las papitas fritas sin hacer de ellasel centro de la comida. Fomente buenos hbitos dando el ejemplo: elija alimentos sanos para s mismo. Ya que los niosobservan hydroponics grower y qu comen yue padres, es ms [...] caramelos, refrescos y cereales llenos de azcar. [phone] [employer] [address] [place] [address]. Todos los derechos reservados. Esta informacin no [...] mdicaConsulte a leyva proveedor de atencin mdica [place] Todas las mujeres de sarita noam de [...] tipo B (Hib) Mujeres con mayor riesgo Ydllan a rio dosis Influenza (gripe) Todas las [...] 3American Cancer Society 4American Academy of Ophthalmology 6731-7676 [employer]. [address] [place] [address], [place] [address]. All rights reserved. This information is not intended as a substitute for professional medical care. Always follow your healthcare professional's instructions. Patient Education Transport Operations Inspector entender [employer] ([employer]) El [employer] de los Estados [...] de granos orestes parte de sarita noam. Tolu incluye panes, pasta, cereales, tortillas y grits [...] esta cantidad de los alimentos que come. [phone] [employer] [address] [place] [address]. Todos los derechos reservados. Esta informacin no [...] importante Compre condones lubricados o utilice lubricante. Tolu ofrece mayor comodidad y reduce el riesgo [...] del condn a medida que lo extrae. Tolu evitar que se le salga el condn. [...] puede lui ahora para proteger leyva futuro. 5570-1915 [employer] [address] [place] [address], [place] [address]. Todos los derechos reservados. Esta informacin no pretende sustituir la atencin mdica profesional. Slo leyva mdico puede diagnosticar y tratar un problema de xiang. Patient Education Qu es el VIH y el SIDA Es importante saber hydroponics grower puede entrar el VIH en el cuerpo [...] a leyva proveedor de atencin mdica sobre hydroponics grower protegerse a usted mismo y asus seres queridos contra el contagio del VIH. Transport Operations Inspector evoluciona la infeccin por el VIH Despus [...] de que el virus entra al organismo. Tolu se denomina sndrome retroviral liz. Los sntomas [...] atacar al cerebro y al sistema nervioso. Tolu causa convulsiones y prdida de lamemoria y el movimiento corporal. Tambin afecta muchas otras partes del cuerpo. Tolu genera problemas ruddy anemia, recuento bajo de glbulos blancos, diarrea, dolor estomacal, problemas en la piel ymuchos otros. Transport Operations Inspector entra el VIH al cuerpo El VIH [...] el momento del parto o al amamantarlo. 3050-7568 [employer] [address] [place] [address], [place] [address]. Todos los derechos reservados. Esta informacin no [...] to anemia. Was started on OCPs by [facility] and menses are now not as [...] file Gets together: Not on file Attends faith service: Not on file Active member of [...] Asked Social History Narrative Pt states her faith preference is [employer] Pt lives with her family No domestic [...] Desires to continue OCPs Referral placed to [facility] - CONSULT/REFERRAL MEAT COUNTER CLERK ([facility] ) - Norethindrone Acet-Ethinyl Est (AVEL 1.5, ,) 1.5-30 mg-mcg per tablet; Take 1 tablet by mouth daily. Dispense: 1 Package; Refill: 3 4. BMI 22.0-22.9, adult 5. Subserous leiomyoma of uterus - CONSULT/REFERRAL MEAT COUNTER CLERK ([facility] ) 6. Screen for STD (sexually [...] BCM: OCP 3) LMP: 02/28/2020 4) Last [place]: 4+ months 5) Last Pap: 02/20/2019 Results: [...] Team Description 03/09/2020 Appointment Radiology Roxanna Brooks, COMMUNICATION SPECIALIST [address] [place] [place], [place] [address] [phone] 03/10/2020 Office Visit [facility] Name [...] Phone Address Type / Group BCBS OF [facility] [id number] 2019-Jayne [phone] [address] PPO/POS [facility] [id number] [place] [address] Guarantor Name Account Type Relation to Date of Phone Billing Patient Address [place]ida Personal/Family Self 1970 [address] [facility] (Home) [place] [address] documented as of this encounter Advance Directives Name Relationship Healthcare Agent Communication Relationship Sherman Santiago Spouse Health Care Agent Bony Miranda Child [facility] Care Agent (Mobile) "
--- OUTSIDE RECORDS SUMMARY | 2020-05-12 16:39 | XMS REPORT | Summary of Care ---
:1970 Author Organization [facility] Address [address] [place] [address] Care Team Providers Name Role Phone Pcp, Patient Does Not Have A Primary Care Provider +1-000-00 0-0000 Reason for Referral Radiology Services (Routine) Status Reason Specialty Diagnoses / Referred By Referred To Procedures Contact Contact New Request Diagnostic Diagnoses Breast cancer screening by mammogram Roxanna Brooks Radiology Procedures BI SCREENING MAMMOGRAM BILATERAL N, BOOKMAKER'S CLERK [address] [place] [address] (Routine) Status Reason Specialty Diagnoses / Referred By Referred To Procedures Contact Contact New Request Obstetrics & Diagnoses Menorrhagia with regular cycle Subserous leiomyoma of uterus Roxanna Brooks Gynecology Procedures CONSULT/REFERRAL COMPUTER OPERATIONS SPECIALIST ([facility] ) Tammy BOOKMAKER'S CLERK [address] [place] [id number] Reason for Visit Reason Comments Well Woman Exam Encounter Details Date Type Department Care Team Description 03/[facility] Wel l woman exam (Primary Dx); [facility] Breast cancer screening by mammogram; [address] Menorrhagia with regular cycle; [address] BMI 22.0-22.9, adult; [place] [address] Subserous leiomyoma of uterus; [id number] Screen for STD (sexually transmitted dis ease) [phone] Allergies No Known Allergiesdocumented as of this [...] exam 11/12/2014 01/14/2017 Overview: ICD10 Diagnosis Term Underwater Welder Utility Irregular menstrual cycle 11/12/2014 09/29/2015 Screen for STD (sexually transmitted disease) 11/12/2014 09/29/2015 Encounter for routine gynecological examination 11/18/2012 11/12/2014 Overview: Medical records received. DOS- 03/20/2013- Bilateral mammogram- Impression: incomplete assessment. Breast US- impression: benign. No sonographic evidence of malignancy. Bilateral cysts. ICD10 Diagnosis Term Underwater Welder Utility Contraceptive management 11/18/2012 01/14/2017 Overview: ICD10 Diagnosis Term Underwater Welder Utility Need for prophylactic vaccination with combined 11/18/2012 11/12/2014 unimumliyt-rgofvjc-hcnabqzgl (DTP) vaccine Dysuria 11/18/2012 11/12/2014 Pain pelvic [...] manera ms eficaz. Igualmente, puede preguntar sobre director retirement el embarazo, los implantes de seno o [...] sobre lo que es mejor para usted. [phone] [employer]. [address] [place] [address], [place] [address]. Todos los derechos reservados. Esta informacin no [...] hijos. En los restaurantes de comida rpida Axtell stacy en restaurantes de comida rpida requiere [...] porcin para que la compartan entre todos. [place] kaitlynn a todos la oportunidad de saborear las papitas fritas sin hacer de ellasel centro de la comida. Fomente buenos hbitos dando el ejemplo: elija alimentos sanos para s mismo. Ya que los niosobservan director retirement y qu comen yue padres, es ms [...] caramelos, refrescos y cereales llenos de azcar. [phone] [employer]. [address] [place] [address]. Todos los derechos reservados. Esta informacin no [...] mdicaConsulte a leyva proveedor de atencin mdica [place] Todas las mujeres de sarita noam de [...] mutacin de los genes Cuando se conoce levya riesgo Cncer de mama y prevencin qumica [...] 3American Cancer Society 4American Academy of Ophthalmology 3892-0688 [employer]. [address] [place] [address], [place] [address]. All rights reserved. This information is not intended as a substitute for professional medical care. Always follow your healthcare professional's instructions. Patient Education Market Garden Worker entender [employer] ([employer]) El [employer]art[employer] de [employer]ultura de los Estados [...] de granos orestes parte de sarita noam. [place] incluye panes, pasta, cereales, tortillas y grits [...] esta cantidad de los alimentos que come. [phone] [employer]. [address] [place] [address]. Todos los derechos reservados. Esta informacin no [...] importante Compre condones lubricados o utilice lubricante. [place] ofrece mayor comodidad y reduce el riesgo [...] del condn a medida que lo extrae. [place] evitar que se le salga el condn. [...] puede lui ahora para proteger leyva futuro. [phone] [employer]. [address] [place] [address], [place] [address]. Todos los derechos reservados. Esta informacin no pretende sustituir la atencin mdica profesional. Slo leyva mdico puede diagnosticar y tratar un problema de xiang. Patient Education Qu es el VIH y el SIDA Es importante saber director retirement puede entrar el VIH en el cuerpo [...] a leyva proveedor de atencin mdica sobre director retirement protegerse a usted mismo y asus seres queridos contra el contagio del VIH. Market Garden Worker evoluciona la infeccin por el VIH Despus [...] de que el virus entra al organismo. [place] se denomina sndrome retroviral liz. Los sntomas [...] atacar al cerebro y al sistema nervioso. [place] causa convulsiones y prdida de lamemoria y el movimiento corporal. Tambin afecta muchas otras partes del cuerpo. [place] genera problemas ruddy anemia, recuento bajo de glbulos blancos, diarrea, dolor estomacal, problemas en la piel ymuchos otros. Market Garden Worker entra el VIH al cuerpo El VIH [...] el momento del parto o al amamantarlo. [phone] [employer]. [address] [place] [address], [place] [address]. Todos los derechos reservados. Esta informacin no [...] to anemia. Was started on OCPs by [facility] and menses are now not as heavy. [...] file Gets together: Not on file Attends church service: Not on file Active member of [...] Asked Social History Narrative Pt states her church preference is Roman Catholic Pt lives with her family No domestic [...] Desires to continue OCPs Referral placed to [facility] - CONSULT/REFERRAL COMPUTER OPERATIONS SPECIALIST ([facility] ) - Norethindrone Acet-Ethinyl Est (AVEL 1.5, ,) 1.5-30 mg-mcg per tablet; Take 1 tablet by mouth daily. Dispense: 1 Package; Refill: 3 4. BMI 22.0-22.9, adult 5. Subserous leiomyoma of uterus - CONSULT/REFERRAL COMPUTER OPERATIONS SPECIALIST ([facility] ) 6. Screen for STD (sexually [...] BCM: OCP 3) LMP: 02/28/2020 4) Last Seibert: 4+ months 5) Last Pap: 02/20/2019 Results: [...] Team Description 03/09/2020 Appointment Radiology Roxanna Brooks, BOOKMAKER'S CLERK [address] [place], [place] [address] [phone] 03/10/2020 Office Visit [facility] Name [...] Group BCBS OF [facility] [id number] 2019-Jayne [phone] P O B OX PPO/POS [facility] 7 [id number] [place] [address] documented as of this encounter Advance Directives Name Relationship Healthcare Agent Communication Relationship Sherman Santiago Spouse Health Care Agent Bony Miranda Child [facility] Care Agent (Mobile) "
--- OUTSIDE RECORDS SUMMARY | 2020-05-12 16:39 | XMS REPORT | Summary of Care ---
:1970 Author Organization [facility] - Health Address [address] [place] [address] Care Team Providers Name Role Phone Pcp, Patient Does Not Have A Primary Care Provider +1-000-00 0-0000 Encounter Details Date Type Department Care Team Description 03/01/2020 Orders Only [facility] Doctor Unassigned, No [address] [facility] Name [place] [phone] [place] [address] Allergies No Known Allergiesdocumented as of this [...] exam 11/12/2014 01/14/2017 Overview: ICD10 Diagnosis Term Lap Runner Utility Irregular menstrual cycle 11/12/2014 09/29/2015 Screen for STD (sexually transmitted disease) 11/12/2014 09/29/2015 Encounter for routine gynecological examination 11/18/2012 11/12/2014 Overview: Medical records received. DOS- 03/20/2013- Bilateral mammogram- Impression: incomplete assessment. Breast US- impression: benign. No sonographic evidence of malignancy. Bilateral cysts. ICD10 Diagnosis Term Lap Runner Utility Contraceptive management 11/18/2012 01/14/2017 Overview: ICD10 Diagnosis Term Lap Runner Utility Need for prophylactic vaccination with combined 11/18/2012 11/12/2014 egdqdfgjie-ktychzn-lpjnaderr (DTP) vaccine Dysuria 11/18/2012 11/12/2014 Pain pelvic [...] 03/01/2020 Office Visit [facility] Roxanna Brooks, PULP REFINER OPERATOR [address] [place] [place], [place] [address] [phone] Health Maintenance Due Date Last Done Comments [...] Phone Address Type / Group BCBS OF [facility] [id number] 2019-Prese [phone] P O B OX PPO/POS [facility] 7 [id number] [place] [address] documented as of this encounter Advance Directives Name Relationship Healthcare Agent Communication Relationship Sherman Santiago Spouse Health Care Agent Bony Ruth Child [facility] Health Care Agent (Mobile)
--- OUTSIDE RECORDS SUMMARY | 2020-05-12 16:40 | XMS REPORT | Summary of Care ---
:1970 Author Organization [facility] Address [address] [place] [address] Care Team Providers Name Role Phone Pcp, Patient Does Not Have A Primary Care Provider +1-000-00 0-0000 Reason for Visit Reason Comments Menstrual Problem (Routine) Status Reason Specialty Diagnoses / Referred By Referred To Procedures Contact Contact New Request Obstetrics & Diagnoses Menorrhagia with regular cycle Subserous leiomyoma of uterus Roxanna Brooks Gynecology Procedures CONSULT/REFERRAL LOAN ASSISTANT (custodian clinic ) N, DIRECTOR INTERNAL AUDIT [address] [place] [address] Encounter Details Date Type Department Care Team Description 03/10/2020 Office Visit [facility] Radha Rodriguez M D [address] [place] [address] Menorrhagia with [facility] Resident regular cycle [facility] (Primary Dx) [address] [facility], [address] [place] [address] Allergies No Known Allergiesdocumented as [...] exam 11/12/2014 01/14/2017 Overview: ICD10 Diagnosis Term Enrichment Assistant Utility Irregular menstrual cycle 11/12/2014 09/29/2015 Screen for STD (sexually transmitted disease) 11/12/2014 09/29/2015 Encounter for routine gynecological examination 11/18/2012 11/12/2014 Overview: Medical records received. DOS- 03/20/2013- Bilateral mammogram- Impression: incomplete assessment. Breast US- impression: benign. No sonographic evidence of malignancy. Bilateral cysts. ICD10 Diagnosis Term Enrichment Assistant Utility Contraceptive management 11/18/2012 01/14/2017 Overview: ICD10 Diagnosis Term Enrichment Assistant Utility Need for prophylactic vaccination with combined 11/18/2012 11/12/2014 ttpanjdccc-vqmqtzr-vkfcxkgom (DTP) vaccine Dysuria 11/18/2012 11/12/2014 Pain pelvic [...] in the spring, was then seen at [facility] in October, received a blood transfusion, [...] file Gets together: Not on file Attends pentecostal service: Not on file Active member of [...] Asked Social History Narrative Pt states her pentecostal preference is [employer] Pt lives with her family No domestic [...] identified. Jason Arita MD On 11/07/2019 16:41:13; [id number] 11/07/2019 Allergies Jaida has No Known Allergies. [...] of heavy menstrual bleeding - Seen at [facility] 10/2019 for VB and received blood [...] Dates Phone Address Type / Group BCBS [facility] [id number] 2019-Prese [phone] P O B OX PPO/POS [facility] [id number] [place] [address] documented as of this encounter Advance Directives Name Relationship Healthcare Agent Communication Relationship Sherman Henderson Spouse Health Care Agent Bony CalderonRuth Child [facility] Care Agent (Mobile) "
--- OUTSIDE RECORDS SUMMARY | 2020-05-12 16:40 | XMS REPORT | Summary of Care ---
:1970 Author Organization [facility] Address [address] [place] [address] Care Team Providers Name Role Phone Pcp, Patient Does Not Have A Primary Care Provider +1-000-00 0-0000 Reason for Visit Reason Comments Menstrual Problem (Routine) Status Reason Specialty Diagnoses / Referred By Referred To Procedures Contact Contact New Request Obstetrics & Diagnoses Menorrhagia with regular cycle Subserous leiomyoma of uterus Roxanna Brooks Gynecology Procedures CONSULT/REFERRAL HOUSEHOLD APPLIANCES SALESPERSON (digital research analyst clinic ) N, CABLE REPAIRER [address] [place] [address] Encounter Details Date Type Department Care Team Description 03/10/2020 Office Visit [facility] Radha Rodriguez M D [address] [place] [address] Menorrhagia with [facility] Resident regular cycle [facility] (Primary Dx) [address] [facility], [address] [place] [address] Allergies No Known Allergiesdocumented as [...] exam 11/12/2014 01/14/2017 Overview: ICD10 Diagnosis Term Firer Marine Utility Irregular menstrual cycle 11/12/2014 09/29/2015 Screen for STD (sexually transmitted disease) 11/12/2014 09/29/2015 Encounter for routine gynecological examination 11/18/2012 11/12/2014 Overview: Medical records received. DOS- 03/20/2013- Bilateral mammogram- Impression: incomplete assessment. Breast US- impression: benign. No sonographic evidence of malignancy. Bilateral cysts. ICD10 Diagnosis Term Firer Marine Utility Contraceptive management 11/18/2012 01/14/2017 Overview: ICD10 Diagnosis Term Firer Marine Utility Need for prophylactic vaccination with combined 11/18/2012 11/12/2014 dzzucdtxom-auheikr-exzjkmxgg (DTP) vaccine Dysuria 11/18/2012 11/12/2014 Pain pelvic [...] in the spring, was then seen at [facility] in October, received a blood transfusion, and [...] file Gets together: Not on file Attends latter-day service: Not on file Active member of [...] Asked Social History Narrative Pt states her latter-day preference is Alevism Pt lives with her family No domestic [...] identified. Jason Arita MD On 11/07/2019 16:41:13; [id number] 11/07/2019 Allergies Jaida has No Known Allergies. [...] of heavy menstrual bleeding - Seen at [facility] 10/2019 for VB and received blood transfusion [...] Dates Phone Address Type / Group BCBS [facility] [id number] 2019-Prese [phone] P O B OX PPO/POS [facility] [phone] [place] [address] Guarantor Name Account Type Relation to Date of Phone Billing Patient Address Jaida Henderson Personal/Family Self 1970 [address] [facility] (Home) [place] [address] documented as of this encounter Advance Directives Name Relationship Healthcare Agent Communication Relationship Sherman Henderson Spouse Health Care Agent Bony CalderonRuth Child [facility] Care Agent (Mobile) "
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
[2020-05-12] MEDS ORDERED: IBUPROFEN 200 MG TAB PO ONE (18:32)
[2020-05-12 18:35] VITALS: TEMP 98.5
[2020-05-12 18:39] VITALS: BP 138/82; O2SAT 99
== END 2020-05-12 18:23 | disposition home or self-care (01) ==
LOC: ER 14:33
DX: M79.18 Myalgia, other site (principal); M25.511 Pain in right shoulder; M54.2 Cervicalgia; V89.2XXD Person injured in unspecified motor-vehicle accident, traffic, subsequent encounter
CPT/HCPCS: 70450; 72125; 99283

== ENCOUNTER 2022-11-23 11:28 | Emergency (ER) | payer BC ==
--- OUTSIDE RECORDS SUMMARY | 2022-11-23 11:33 | XMS REPORT | Continuity of Care Document ---
:1970 Author Organization [facility] t Address [address] [place] [address] Care Team Providers Name Role Phone Aletha Lira Primary Care Physician [phone] LUZ MARINA STUART Attending Clinician Unavailable OMER MARSHALL Attending Clinician Unavailable SARA CORDERO Attending Clinician Unavailable Omer Marshall Attending Clinician Myriam ESTEVEZ, Cat Attending Clinician Sara Cordero MD Attending Clinician Sujit ESTEVEZ, Amada Attending Clinician Siva Singletary Attending Clinician Unavailable Kem ESTEVEZ, Naomi Maurer Attending Clinician DAYAN DALAL Attending Clinician Unavailable Dayan Dinh Attending Clinician Doctor Unassigned, [place] Attending Clinician Unavailable RADIOLOGY Attending Clinician Unavailable Radiology Attending Clinician Unavailable PURNIMA OROPEZA Attending Clinician Unavailable ZIYAD DURBIN Attending Clinician Unavailable Ziyad Gunter Attending Clinician Purnima Oropeza MD Attending Clinician Kevin Kong Attending Clinician KEVIN CRYSTAL Attending Clinician Unavailable Juan Laureano DO Attending Clinician [facility] Resident Attending Clinician Unavailable Radha Rodriguez MD Attending Clinician Sherin Moise Attending Clinician [phone] Pcp, Patient Does Not Have A Attending Clinician [phone] SHERIN SCHWAB Attending Clinician Unavailable MARIA DEL ROSARIO CHOWDARY Attending Clinician Unavailable BRANDON CANO Attending Clinician Unavailable Renate Mccabe Attending Clinician Team, [facility] Attending Clinician UnavailLUZ MARINA Cardozo Admitting Clinician Unavailable CAT MIGUEL Admitting Clinician Unavailable ALETHA JOHNSON Admitting Clinician Unavailable ZIYAD DURBIN Admitting Clinician Unavailable MARIA DEL ROSARIO CHOWDARY Admitting Clinician Unavailable Payers Payer Name Policy Type Policy Number Effective Date Expiration Date S ource [employer] [place] [id number] 2019 00:00:00 BCBS PPO POS EPO [id number] 2022 00:00:00 CHOICE Problems Condition Condition Condition Status Onset Resolution Last Treating Co mments Source Name Details Category Date Date Treatment Clinician Date Acute Acute Disease Active [facility] ch[facility]cysti -05 Gema kes tis tis 00:00: Medical [facility] Abdominal Abdominal Disease Active 2021-07 Overview: Univers pain, pain, 2-13 Formattin ity of epigastric epigastric 00:00: g of this [place] [id number] note Medical might be Branch different from the original. Added automatic ally from request for surgery [id number] Postmenopa Postmenopa Disease Active U nivers usal usal 9-21 ity of 00:00: [place] 00 [facility] Branch Anemia, Anemia, Disease Active Univers unspecifie unspecifie 5-27 it y of d type d type 00:00: [place] [facility] Menorrhagi Menorrhagi Disease Active U nivers a with a with 5-27 ity of regular regular 00:00: [place] cycle cycle Medical Branch Subserous Subserous Disease Active Uni vers leiomyoma leiomyoma 5-27 [place] of of uterus [place] RLQ RLQ Disease Active 2018-07 Univers abdominal abdominal 0-14 ity of pain pain 00:00: [place] [facility] Biliary Biliary Disease Active 2018-07 Univers colic colic 0-13 ity of 00:00: [place] [facility] Family Family Disease Active Univers history of history of 8- [place] of malignant malignant [place] ne[place] neoplasm [place] Med[place] of breast of breast Bran ch Nonspecifi Nonspecifi Disease Active 2017-07 U nivers c c 2-20 [place] of serologic serologic 00:[place] evidence evidence 00 Med[place] of human of human 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) Nonspecifi Nonspecifi Disease Active 2017-07 U nivers c c 2-20 [place] of serologic serologic 00:[place] evidence evidence 00 Med[place] of human of human 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) Screening Screening Disease Active 2017-07 Uni vers mammogram, mammogram, 2-06 [place] encounter [place] 00 [place] Screening Screening Disease Active 2017-07 Uni vers examinatio examinatio 2-06 it y of n for STD n for STD 00:[place] ([place]ually (sexually 00 Medi marlen transmitte transmitte Br anch d disease) d disease) Encounter Encounter Disease Active Uni vers for other for other 6-26 [place] of contracept [place] Medical management management Br anch Encounter Encounter Disease Active Uni vers for other for other 6-26 [place] of contracept [place]pt [place] Medical management management Br anch Lump of Lump of Disease Active Univers breast, breast, 01-14 ity of right right 00:00: [place] 00 Medical Branch Vaginitis Vaginitis Disease Active Uni vers and and 01-14 ity of vulvovagin vulvovagin [place] it[place] itis, 00 Medical unspecifie unspecifie Br anch d d Well woman Well woman Disease Active Overview : Univers exam exam 11-12 Formattin ity of 00:00: g of this note Medical might be Branch different from the original. 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 Allergies, Adverse Reactions, Alerts Allergy Allergy Status Severity Reaction(s) Onset Inactive Treating Comm ents Source Name Type Date Date Clinician NO KNOWN Allergy Active [facility] NO KNOWN Drug Active Univers ALLERGIE Class ity of [facility] Social History Social Habit Start Date Stop Date Quantity Comments Source Alcohol intake 2022-10-25 2022-10-[address] [facility] 00:00[facility]00 00:00:00 [facility] (finding[facility] Exposure to 2022-10-14 2022-10-[address] [facility] SARS-CoV-2 00:00:00 09:01:00 [facility] Center (event) Tobacco use and 2022-10-24 2022-10-24 Smokeless tobacco [facility] exposure 00:00:00 00:00:00 non-user Medical Center History [facility] 2019-05-03 2019-05-03 5 University o f Financial 00:00:00 00:00:00 [place] [facility] History [facility] Food 2019-05-03 2019-05-03 1 Univers ity of Worry 00:00:00 00:00:00 [place] [facility] History [facility] Food 2019-05-03 2019-05-03 1 Univers ity of Scarcity 00:00:00 00:00:00 [place] [facility] History [facility] 2019-05-03 2019-05-03 2 University o f Transport Med 00:00:00 00:00:00 [place] Medic al Branch History [facility] 2019-05-03 2019-05-03 2 University o f Transport Non-Med 00:00:00 00:00:00 [facility] Sex Ass[birth year] At [birth year] DR[facility] Dhillon 00:00:00 00:00:00 [facility] Smoking Status Start Date Stop Date Source Never smoked tobacco [facility] Medications Ordered Filled Start Stop Current Ordering Indication Dosage Frequency Signature Comments Components Source Medication Medication Date Date Medication? Clinician (SIG) Name Name HYDROcodone 2022- No 1{tbl} Take [address] -acetaminop 4-07 04-17 tablet by Gema truong luma (NORCO 00:00: 23:59 mouth Medic al 5-325) 00 :00 every 6 Center 5-325 mg (six) per tablet hours as needed for up to 10 days. Max Daily Amount: 4 tablets No known 2021-07 No No known Unive rs medications 2-12 medication it y of 15:45: s [address] No known 2021-07 No No known Unive rs medications 2-12 medication it y of 15:45: [address] No known 2021-07 No No known Unive rs medications 2-12 medication it y of 15:45: [address] No known 2021-07 No No known Unive rs medications 2-12 medication it y of 15:45: [address] INSTILL ONE 2021-07 No (1) 1-29 SPRAY(S) 00:00: INTO EACH 00 NOSTRIL TWICE A DAY. FLUTICASONE 2021-07 No PROPIONATE 1-29 50 MCG 00:00: SPRAY SUSP 00 USE 1 SPRAY 2021-07 No IN EACH 0-12 NOSTRIL 00:00: TWICE 00 DAILY. No known 2021-07 No No known Unive rs medications 0-11 medication it y of 14:38: [address] No known 2021-07 No No known Unive rs medications 0-11 medication it y of 14:38: [address] No known 2021-07 No No known Unive rs medications 0-11 medication it y of 14:38: [address] No known 2021-07 No No known Unive rs medications 0-11 medication it y of 14:38: [address] Dose 2021- No Unknown 03-22 00:00: 00 AMOXICILLIN 2022-0 No 875 MG 9-01 TABLET 00:00: 00 Dose 2-0 No Unknown 03-22 00:00: 00 Dose 2-0 No Unknown 03-22 00:00: 00 AMOXICILLIN 2-0 No 875 MG 9-01 TABLET 00:00: 00 AMOXICILLIN 2-0 No 875 MG 9-01 TABLET 00:00: 00 PLENVU Yes TAKE BY [facility] 140-9-5.2 5-12 MOUTH ity of gram PPkS 00:00: TWICE A [place] 00 DAY AND Medical USE Branch DIRECTED. PLENVU Yes TAKE BY [facility] 140-9-5.2 5-12 MOUTH ity of gram PPkS 00:00: TWICE A [place] 00 DAY AND Medical USE Branch DIRECTED. PLENVU Yes TAKE BY [facility] 140-9-5.2 5-12 MOUTH ity of gram PPkS 00:00: TWICE A [place] 00 DAY AND Medical USE Branch DIRECTED. PLENVU Yes TAKE BY [facility] 140-9-5.2 5-12 MOUTH ity of gram PPkS 00:00: TWICE A [place] 00 DAY AND Medical USE Branch DIRECTED. PLENVU Yes TAKE BY [facility] 140-9-5.2 5-12 MOUTH ity of gram PPkS 00:00: TWICE A [place] 00 DAY AND Medical USE Branch DIRECTED. PLENVU Yes TAKE BY [facility] 140-9-5.2 5-12 MOUTH ity of gram PPkS 00:00: TWICE A [place] 00 DAY AND Medical USE Branch DIRECTED. PLENVU 2021- No TAKE BY [facility] 140-9-5.2 -12 -21 MOUTH ity of gram PPkS 00:00: 00:00 [place] 00 :00 DAY AND Medical USE Branch DIRECTED. PLENVU 2021- No TAKE BY [facility] 140-9-5.2 -12 -21 MOUTH ity of gram PPkS 00:00: 00:00 [place] 00 :00 DAY AND Medical USE Branch DIRECTED. PLENVU 2021- No TAKE BY [facility] 140-9-5.2 -12 -21 MOUTH ity of gram PPkS 00:00: 00:00 [place] 00 :00 DAY AND Medical USE Branch DIRECTED. hydrocortis 0 Yes APPLY IN A Univers one 2.5 % 3-29 THIN FILM ity o f rectal 00:00: TO THE [place] cream 00 AFFECTED Medical SKIN AND Branch RUB IN GENTLY AND COMPLETELY THREE TIMES A DAY. hydrocortis 0 Yes APPLY IN A Univers one 2.5 % 3-29 THIN FILM ity o f rectal 00:00: TO THE [place] cream 00 AFFECTED Medical SKIN AND Branch RUB IN GENTLY AND COMPLETELY THREE TIMES A DAY. hydrocortis 0 Yes APPLY IN A Univers one 2.5 % 3-29 THIN FILM ity o f rectal 00:00: TO THE [place] cream 00 AFFECTED Medical SKIN AND Branch RUB IN GENTLY AND COMPLETELY THREE TIMES A DAY. hydrocortis 0 Yes APPLY IN A Univers one 2.5 % 3-29 THIN FILM ity o f rectal 00:00: TO THE [place] cream 00 AFFECTED Medical SKIN AND Branch RUB IN GENTLY AND COMPLETELY THREE TIMES A DAY. hydrocortis 0 Yes APPLY IN A Univers one 2.5 % 3-29 THIN FILM ity o f rectal 00:00: TO THE [place] cream 00 AFFECTED Medical SKIN AND Branch RUB IN GENTLY AND COMPLETELY THREE TIMES A DAY. hydrocortis 0 Yes APPLY IN A Univers one 2.5 % 3-29 THIN FILM ity o f rectal 00:00: TO THE [place] cream 00 AFFECTED Medical SKIN AND Branch RUB IN GENTLY AND COMPLETELY THREE TIMES A DAY. hydrocortis 2020-0 2021- No APPLY IN A Univers one 2.5 % 3-29 04-11 THIN FILM ity of rectal 00:00: 00:00 TO THE [place] cream 00 :00 AFFECTED Medical SKIN AND Branch RUB IN GENTLY AND COMPLETELY THREE TIMES A DAY. hydrocortis 2020-0 2021- No APPLY IN A Univers one 2.5 % 3-29 - THIN FILM ity of rectal 00:00: 00:00 TO THE [place] cream 00 :00 AFFECTED Medical SKIN AND Branch RUB IN GENTLY AND COMPLETELY THREE TIMES A DAY. hydrocortis 2020-0 2021- No APPLY IN A Univers one 2.5 % 3-29 - THIN FILM ity of rectal 00:00: 00:00 TO THE [place] cream 00 :00 AFFECTED Medical SKIN AND Branch RUB IN GENTLY AND COMPLETELY THREE TIMES A DAY. meloxicam 2021-0 Yes 15mg Take 15 mg Un [place] 15 mg 3-03 by mouth ity of tablet 00:00: daily. Medical Branch methylPREDN 2021-0 Yes 10mg Take 10 mg Univers ISolone 4 3-03 by mouth. ity o f mg tablets 00:00: Medical Branch meloxicam 2021-0 Yes 15mg Take 15 mg Un [place] 15 mg 3-03 by mouth ity of tablet 00:00: daily. [place] [facility] methylPREDN 2021-0 Yes 10mg Take 10 mg Univers ISolone 4 3-03 by mouth. ity o f mg tablets 00:00: Medical Branch meloxicam 2021-0 Yes 15mg Take 15 mg Un [place] 15 mg 3-03 by mouth ity of tablet 00:00: daily. [place] [facility] methylPREDN 2021-0 Yes 10mg Take 10 mg Univers ISolone 4 3-03 by mouth. ity o f mg tablets 00:00: [place] [facility] meloxicam 2021-0 Yes 15mg Take 15 mg Un lu[place] 15 mg 3-03 by mouth ity of tablet 00:00: daily. [place] [facility] methylPREDN 2021-0 Yes 10mg Take 10 mg Univers ISolone 4 3-03 by mouth. ity o f mg tablets 00:00: Medical Branch meloxicam 2021-0 Yes 15mg Take 15 mg Un lu[place] 15 mg 3-03 by mouth ity of tablet 00:00: daily. [place] [facility] methylPREDN 2021-0 Yes 10mg Take 10 mg Univers ISolone 4 3-03 by mouth. ity o f mg tablets 00:00: Medical Branch meloxicam 2021-0 Yes 15mg Take 15 mg Un lu[place] 15 mg 3-03 by mouth ity of tablet 00:00: daily. [place] [facility] methylPREDN 2021-0 Yes 10mg Take 10 mg Univers ISolone 4 3-03 by mouth. ity o f mg tablets 00:00: [place] [facility] meloxicam 2021-0 2022- No 15mg Take 15 mg U nivers 15 mg 3-03 09-21 by mouth ity of tablet 00:00: 00:00 daily. [place] 00 :00 Medical Branch methylPREDN 2021-0 2022- No 10mg Take 10 mg Univers ISolone 4 09-21 by mouth. ity of mg tablets 00:00: 00:00 [place] 00 :00 Medical Branch meloxicam 2021-0 2022- No 15mg Take 15 mg U nivers 15 mg 09-21 by mouth ity of tablet 00:00: 00:00 daily. [place] 00 :00 Medical Branch methylPREDN 2021-0 2022- No 10mg Take 10 mg Univers ISolone 4 09-21 by mouth. ity of mg tablets 00:00: 00:00 [place] 00 :00 Medical Branch meloxicam 2021-0 2022- No 15mg Take 15 mg U nivers 15 mg 09-21 by mouth ity of tablet 00:00: 00:00 daily. [place] 00 :00 Medical Branch methylPREDN 2021-0 2022- No 10mg Take 10 mg Univers ISolone 4 09-21 by mouth. ity of mg tablets 00:00: 00:00 [place] 00 :00 Medical Branch Norethindro 2020-0 Yes [id number] 1{tbl} Take 1 Univers ne 8-20 tablet by ity of Acet-Ethiny 00:00: mouth [place] l Est 00 daily. Medical (AVEL Branch ,) 1.5-30 mg-mcg per tablet Norethindro 2020-0 Yes [id number] 1{tbl} Take 1 Univers ne 8-20 tablet by ity of Acet-Ethiny 00:00: mouth [place] l Est 00 daily. Medical (AVEL Branch , ,) 1.5-30 mg-mcg per tablet Norethindro 2020-0 Yes [id number] 1{tbl} Take 1 Univers ne 8-20 tablet by ity of Acet-Ethiny 00:00: mouth [place] l Est 00 daily. Medical (AVEL Branch , ,) 1.5-30 mg-mcg per tablet Norethindro 2020-0 Yes [id number] 1{tbl} Take 1 Univers ne 8-20 tablet by ity of Acet-Ethiny 00:00: mouth [place] l Est 00 daily. Medical (AVEL Branch , ,) 1.5-30 mg-mcg per tablet Norethindro 2020-0 Yes [id number] 1{tbl} Take 1 Univers ne 8-20 tablet by ity of Acet-Ethiny 00:00: mouth [place] l Est 00 daily. Medical (AVEL Branch , ,) 1.5-30 mg-mcg per tablet Norethindro 2020-0 Yes [id number] 1{tbl} Take 1 Univers ne 8-20 tablet by ity of Acet-Ethiny 00:00: mouth [place] l Est 00 daily. Medical (AVEL Branch , ,) 1.5-30 mg-mcg per tablet Norethindro 2020-0 Yes [id number] 1{tbl} Take 1 Univers ne 8-20 tablet by ity of Acet-Ethiny 00:00: mouth [place] l Est 00 daily. Medical (AVEL Branch , ,) 1.5-30 mg-mcg per tablet Norethindro 2020-0 Yes [id number] 1{tbl} Take 1 Univers ne 8-20 tablet by ity of Acet-Ethiny 00:00: mouth [place] l Est 00 daily. Medical (AVEL Branch , ,) 1.5-30 mg-mcg per tablet Norethindro 2020-0 Yes [id number] 1{tbl} Take 1 Univers ne 8-20 tablet by ity of Acet-Ethiny 00:00: mouth [place] l Est 00 daily. Medical (AVEL Branch , ,) 1.5-30 mg-mcg per tablet Norethindro 2020-0 202- No [id number] 1{tbl} Take 1 Univers ne 8-20 09-21 tablet by ity of Acet-Ethiny 00:00: 00:00 [place] Est 00 :00 daily. Medical (AVEL Branch , ,) 1.5-30 mg-mcg per tablet Norethindro 2020-0 2021- No [id number] 1{tbl} Take 1 Univers ne 8-20 09-21 tablet by ity of Acet-Ethiny 00:00: 00:00 [place] Est 00 :00 daily. Medical (AVEL Branch , 21,) 1.5-30 mg-mcg per tablet Norethindro 2020-0 2021- No [id number] 1{tbl} Take 1 Univers ne 8-20 09-21 tablet by ity of Acet-Ethiny 00:00: 00:00 [place] l Est 00 :00 daily. Medical (AVEL Branch .12/18, 21,) 1.5-30 mg-mcg per tablet Norethindro 2020-0 Yes [id number] 1{tbl} Take 1 Univers ne 8-11 tablet by ity of Acet-Ethiny 00:00: mouth [place] l Est 00 daily. Medical (AVEL Branch , 21,) 1.5-30 mg-mcg per tablet Norethindro 2020-0 Yes [id number] 1{tbl} Take 1 Univers ne 8-11 tablet by ity of Acet-Ethiny 00:00: mouth [place] l Est 00 daily. Medical (AVEL Branch , 21,) 1.5-30 mg-mcg per tablet Norethindro 2020-0 2020- No [id number] 1{tbl} Take 1 Univers ne 8-11 08-20 tablet by ity of Acet-Ethiny 00:00: 00:00 [place] Est 00 :00 daily. Medical (AVEL Branch .12/18, 21,) 1.5-30 mg-mcg per tablet Norethindro 2020-0 2020- No [id number] 1{tbl} Take 1 Univers ne 8-11 08-20 tablet by ity of Acet-Ethiny 00:00: 00:00 [place] l Est 00 :00 daily. Medical (AVEL Branch , 21,) 1.5-30 mg-mcg per tablet AVEL 2020-0 2020- No TAKE ONE Univers .12/18, , 6 08-11 (1) ity of 1.5-30 00:00: 00:00 TABLET(S) [place] mg-mcg per 00 :00 BY MOUTH Medic al tablet ONCE A Branch DAY. AVEL 2020-0 2020- No TAKE ONE Univers .12/18, 21, 6 08-11 (1) ity of 1.5-30 00:00: 00:00 TABLET(S) [place] mg-mcg per 00 :00 BY MOUTH Medic al tablet ONCE A Branch DAY. ferrous 2020-0 Yes [id number] 325mg Take 1 Uni vers sulfate 325 4-16 tablet by ity of mg (65 mg 00:00: mouth 3 [place] iron) 00 (three) Medical tablet times Branch daily with meals. ferrous 2020-0 Yes [id number] 325mg Take 1 Uni vers sulfate 325 4-16 tablet by ity of mg (65 mg 00:00: mouth 3 [place] iron) 00 (three) Medical tablet times Branch daily with meals. ferrous 2020-0 Yes [id number] 325mg Take 1 Uni vers sulfate 325 4-16 tablet by ity of mg (65 mg 00:00: mouth 3 [place] iron) 00 (three) Medical tablet times Branch daily with meals. ferrous 2020-0 Yes [id number] 325mg Take 1 Uni vers sulfate 325 4-16 tablet by ity of mg (65 mg 00:00: mouth 3 [place] iron) 00 (three) Medical tablet times Branch daily with meals. ferrous 2020-0 Yes [id number] 325mg Take 1 Uni vers sulfate 325 4-16 tablet by ity of mg (65 mg 00:00: mouth 3 [place] iron) 00 (three) Medical tablet times Branch daily with meals. ferrous 2020-0 Yes [id number] 325mg Take 1 Uni vers sulfate 325 4-16 tablet by ity of mg (65 mg 00:00: mouth 3 [place] iron) 00 (three) Medical tablet times Branch daily with meals. ferrous 2020-0 Yes [id number] 325mg Take 1 Uni vers sulfate 325 4-16 tablet by ity of mg (65 mg 00:00: mouth 3 [place] iron) 00 (three) Medical tablet times Branch daily with meals. ferrous 2020-0 Yes [id number] 325mg Take 1 Uni vers sulfate 325 4-16 tablet by ity of mg (65 mg 00:00: mouth 3 [place] iron) 00 (three) Medical tablet times Branch daily with meals. ferrous 2020-0 Yes [id number] 325mg Take 1 Uni vers sulfate 325 4-16 tablet by ity of mg (65 mg 00:00: mouth 3 [place] iron) 00 (three) Medical tablet times Branch daily with meals. ferrous 2020-0 Yes [id number] 325mg Take 1 Uni vers sulfate 325 4-16 tablet by ity of mg (65 mg 00:00: mouth 3 [place] iron) 00 (three) Medical tablet times Branch daily with meals. ferrous 2020-0 Yes [id number] 325mg Take 1 Uni vers sulfate 325 4-16 tablet by ity of mg (65 mg 00:00: mouth 3 [place] iron) 00 (three) Medical tablet times Branch daily with meals. ferrous 2020-0 Yes [id number] 325mg Take 1 Uni vers sulfate 325 4-16 tablet by ity of mg (65 mg 00:00: mouth 3 [place] iron) 00 (three) Medical tablet times Branch daily with meals. ferrous 2020-0 Yes [id number] 325mg Take 1 Uni vers sulfate 325 4-16 tablet by ity of mg (65 mg 00:00: mouth 3 [place] iron) 00 (three) Medical tablet times Branch daily with meals. ferrous 2020-0 Yes [id number] 325mg Take 1 Uni vers sulfate 325 4-16 tablet by ity of mg (65 mg 00:00: mouth 3 [place] iron) 00 (three) Medical tablet times Branch daily with meals. ferrous 2020-0 Yes [id number] 325mg Take 1 Uni vers sulfate 325 4-16 tablet by ity of mg (65 mg 00:00: mouth 3 [place] iron) 00 (three) Medical tablet times Branch daily with meals. ferrous 2020-0 Yes [id number] 325mg Take 1 Uni vers sulfate 325 4-16 tablet by ity of mg (65 mg 00:00: mouth 3 [place] iron) 00 (three) Medical tablet times Branch daily with meals. ferrous 2020-0 Yes [id number] 325mg Take 1 Uni vers sulfate 325 4-16 tablet by ity of mg (65 mg 00:00: mouth 3 [place] iron) 00 (three) Medical tablet times Branch daily with meals. ferrous 2020-0 2021- No [id number] 325mg Take 1 Un [place] sulfate 325 4-16 09-21 tablet by it y of mg (65 mg 00:00: 00:00 [place] iron) 00 :00 (three) Medical tablet times Branch daily with meals. ferrous 2020-0 2021- No [id number] 325mg Take 1 Un [place] sulfate 325 4-16 09-21 tablet by it y of mg (65 mg 00:00: 00:00 mouth 3 [place] iron) 00 :00 (three) Medical tablet times Branch daily with meals. ferrous 2020-0 2021- No [id number] 325mg Take 1 Un [place] sulfate 325 4-16 09-21 tablet by it y of mg (65 mg 00:00: 00:00 mouth 3 [place] iron) 00 :00 (three) Medical tablet times Branch daily with meals. No known No Univers medications ity of [place] [facility] [place] No known No Univers medications ity of [facility] No known No Univers medications ity [facility] No known No Univers medications ity of [facility] No known No Univers medications ity [facility] No known No Univers medications ity [facility] No known No [facility] Ordered Filled Immunization Date Status Comments [facility] e Immunization Name Name TDAP (ADACEL) 2015-03-06 Completed University of VACCINE 00:00:00 [facility] TDAP (ADACEL) 2015-03-06 Completed University of VACCINE 00:00:00 [facility] TDAP (ADACEL) 2015-03-06 Completed University of VACCINE 00:00:00 [facility] TDAP (ADACEL) 2015-03-06 Completed University of VACCINE 00:00:00 [facility] TDAP (ADACEL) 2015-03-06 Completed University of VACCINE 00:00:00 [facility] TDAP (ADACEL) 2015-03-06 Completed University of VACCINE 00:00:00 [facility] TDAP (ADACEL) 2015-03-06 Completed University of VACCINE 00:00:00 [facility] TDAP (ADACEL) 2015-03-06 Completed University of VACCINE 00:00:00 [facility] TDAP (ADACEL) 2015-03-06 Completed University of VACCINE 00:00:00 [facility] TDAP (ADACEL) 2015-03-06 Completed University of VACCINE 00:00:00 [facility] TDAP (ADACEL) 2015-03-06 Completed University of VACCINE 00:00:00 [facility] TDAP (ADACEL) 2015-03-06 Completed University of VACCINE 00:00:00 [facility] TDAP (ADACEL) 2015-03-06 Completed University of VACCINE 00:00:00 [facility] TDAP (ADACEL) 2015-03-06 Completed University of VACCINE 00:00:00 [facility] TDAP (ADACEL) 2015-03-06 Completed University of VACCINE 00:00:00 [facility] Branch TDAP (ADACEL) 2015-03-06 Completed University of VACCINE 00:00:00 [place] [facility] TDAP (ADACEL) 2015-03-06 Completed University of VACCINE 00:00:00 [place] [facility] TDAP (ADACEL) 2015-03-06 Completed University of VACCINE 00:00:00 [place] [facility] TDAP (ADACEL) 2015-03-06 Completed University of VACCINE 00:00:00 [place] [facility] TDAP (ADACEL) 2015-03-06 Completed University of VACCINE 00:00:00 [place] [facility] TDAP (ADACEL) 2015-03-06 Completed University of VACCINE 00:00:00 [place] [facility] TDAP (ADACEL) 2015-03-06 Completed University of VACCINE 00:00:00 [place] [facility] TDAP (ADACEL) 2015-03-06 Completed University of VACCINE 00:00:00 [facility] Branch TDAP (ADACEL) 2015-03-06 Completed University of VACCINE 00:00:00 [facility] Branch TDAP (ADACEL) 2015-03-06 Completed University of VACCINE 00:00:00 [facility] Branch TDAP (ADACEL) 2015-03-06 Completed University of VACCINE 00:00:00 [facility] Branch TDAP (ADACEL) 2015-03-06 Completed University of VACCINE 00:00:00 [facility] Branch TDAP (ADACEL) 2015-03-06 Completed University of VACCINE 00:00:00 [facility] TDAP (ADACEL) 2015-03-06 Completed University of VACCINE 00:00:00 [facility] TDAP (ADACEL) 2015-03-06 Completed University of VACCINE 00:00:00 [facility] TDAP (ADACEL) 2015-03-06 Completed [facility] VACCINE 00:00:00 [facility] TDAP (ADACEL) 2015-03-06 Completed University of VACCINE 00:00:00 [facility] TDAP (ADACEL) 2015-03-06 Completed University of VACCINE 00:00:00 [facility] TDAP (ADACEL) 2015-03-06 Completed University of VACCINE 00:00:00 [facility] TDAP (ADACEL) 2015-03-06 Completed University of VACCINE 00:00:00 [facility] Tdap 2014-06-21 Completed University of 00:00:00 [facility] Tdap 2014-06-21 Completed University of 00:00:00 [facility] Tdap 2014-06-21 Completed University of 00:00:00 [facility] TDAP 2014-06-21 Completed University of 00:00:00 [facility] TDAP 2014-06-21 Completed University of 00:00:00 [facility] TDAP 2014-06-21 Completed University of 00:00:00 [facility] TDAP 2014-06-21 Completed University of 00:00:00 [facility] TDAP 2014-06-21 Completed University of 00:00:00 [facility] TDAP 2014-06-21 Completed University of 00:00:00 [facility] TDAP 2014-06-21 Completed University of 00:00:00 [facility] TDAP 2014-06-21 Completed University of 00:00:00 [facility] TDAP 2014-06-21 Completed University of 00:00:00 [facility] TDAP 2014-06-21 Completed University of 00:00:00 [facility] TDAP 2014-06-21 Completed University of 00:00:00 [facility] TDAP 2014-06-21 Completed University of 00:00:00 [facility] TDAP 2014-06-21 Completed University of 00:00:00 [facility] TDAP 2014-06-21 Completed University of 00:00:00 [facility] TDAP 2014-06-21 Completed University of 00:00:00 [facility] TDAP 2014-06-21 Completed University of 00:00:00 [facility] TDAP 2014-06-21 Completed University of 00:00:00 [facility] TDAP 2014-06-21 Completed University of 00:00:00 [facility] TDAP 2014-06-21 Completed University of 00:00:00 [facility] TDAP 2014-06-21 Completed University of 00:00:00 [facility] Tdap 2014-06-21 Completed University of 00:00:00 [facility] TDAP 2014-06-21 Completed University of 00:00:00 [facility] TDAP 2014-06-21 Completed University of 00:00:00 [facility] TDAP 2014-06-21 Completed University of 00:00:00 [facility] TDAP 2014-06-21 Completed University of 00:00:00 [facility] Tdap 2014-06-21 Completed University of 00:00:00 [facility] Tdap 2014-06-21 Completed University of 00:00:00 [facility] Tdap 2014-06-21 Completed University of 00:00:00 [facility] Tdap 2014-06-21 Completed University of 00:00:00 [facility] Tdap 2014-06-21 Completed University of 00:00:00 [facility] Tdap 2012-12-10 Completed University of 00:00:00 [facility] Tdap 2012-12-10 Completed University of 00:00:00 [facility] Tdap 2012-12-10 Completed University of 00:00:00 [facility] TDAP 2012-12-10 Completed University of 00:00:00 [facility] TDAP 2012-12-10 Completed University of 00:00:00 [facility] TDAP 2012-12-10 Completed University of 00:00:00 [facility] TDAP 2012-12-10 Completed University of 00:00:00 [facility] TDAP 2012-12-10 Completed University of 00:00:00 [facility] TDAP 2012-12-10 Completed University of 00:00:00 [facility] TDAP 2012-12-10 Completed University of 00:00:00 [facility] TDAP 2012-12-10 Completed University of 00:00:00 [facility] TDAP 2012-12-10 Completed University of 00:00:00 [facility] TDAP 2012-12-10 Completed University of 00:00:00 [facility] Tdap 2012-12-10 Completed University of 00:00:00 [facility] TDAP 2012-12-10 Completed University of 00:00:00 [facility] TDAP 2012-12-10 Completed University of 00:00:00 [facility] TDAP 2012-12-10 Completed University of 00:00:00 [facility] Tdap 2012-12-10 Completed University of 00:00:00 [facility] TDAP 2012-12-10 Completed University of 00:00:00 [facility] TDAP 2012-12-10 Completed University of 00:00:00 [facility] TDAP 2012-12-10 Completed University of 00:00:00 [facility] TDAP 2012-12-10 Completed University of 00:00:00 [facility] TDAP 2012-12-10 Completed University of 00:00:00 [facility] Tdap 2012-12-10 Completed University of 00:00:00 [facility] TDAP 2012-12-10 Completed University of 00:00:00 [facility] TDAP 2012-12-10 Completed [facility] 00:00:00 [facility] TDAP 2012-12-10 Completed University of 00:00:00 [facility] TDAP 2012-12-10 Completed [facility] of 00:00:00 [facility] TDAP 2012-12-10 Completed University of 00:00:00 [facility] TDAP 2012-12-10 Completed University of 00:00:00 [facility] Tdap 2012-12-10 Completed University of 00:00:00 [facility] Tdap 2012-12-10 Completed University of 00:00:00 [facility] Tdap 2012-12-10 Completed University of 00:00:00 [facility] Tdap 2012-12-10 Completed University of 00:00:00 [facility] Tdap 2012-12-10 Completed University of 00:00:00 [facility] Td 1990-11-18 Completed University of 00:00:00 [facility] Td 1990-11-18 Completed University of 00:00:00 [facility] Td 1990-11-18 Completed University of 00:00:00 [facility] Td 1990-11-18 Completed University of 00:00:00 [facility] Td 1990-11-18 Completed University of 00:00:00 [facility] Td 1990-11-18 Completed University of 00:00:00 [facility] Td 1990-11-18 Completed University of 00:00:00 [facility] Td 1990-11-18 Completed University of 00:00:00 [facility] Td 1990-11-18 Completed University of 00:00:00 [facility] Td 1990-11-18 Completed University of 00:00:00 [facility] Td 1990-11-18 Completed University of :00:00 [facility] Td 1990-11-18 Completed University of :00:00 [facility] Td 1990-11-18 Completed University of 00:00:00 [facility] Td 1990-11-18 Completed University of 00:00:00 [facility] Td 1990-11-18 Completed University of 00:00:00 [facility] Td 1990-11-18 Completed University of 00:00:00 [facility] Td 1990-11-18 Completed University of 00:00:00 [facility] Td 1990-11-18 Completed University of 00:00:00 [facility] Td 1990-11-18 Completed University of 00:00:00 [facility] Td 1990-11-18 Completed University of 00:00:00 [facility] Td 1990-11-18 Completed University of 00:00:00 [facility] Td 1990-11-18 Completed University of 00:00:00 [facility] Td 1990-11-18 Completed University of 00:00:00 [facility] Td 1990-11-18 Completed University of 00:00:00 [facility] Td 1990-11-18 Completed University of 00:00:00 [facility] Td 1990-11-18 Completed University of 00:00:00 [facility] Td 1990-11-18 Completed University of 00:00:00 [facility] Td 1990-11-18 Completed University of 00:00:00 [facility] Td 1990-11-18 Completed University of 00:00:00 [facility] Td 1990-11-18 Completed University of 00:00:00 [facility] Td 1990-11-18 Completed University of 00:00:00 [facility] Td 1990-11-18 Completed University of 00:00:00 [facility] Td 1990-11-18 Completed University of 00:00:00 [facility] Td 1990-11-18 Completed University of 00:00:00 [facility] Td 1990-11-18 Completed University of 00:00:00 [facility] Vital Signs Vital Name Observation Time Observation Value Comments Source HEIGHT 2022-10-24 11:10:00 149.9 cm WEIGHT 2022-10-24 11:10:00 52.753 kg HEIGHT 2022-10-24 11:10:00 149.9 cm WEIGHT 2022-10-24 11:10:00 52.753 kg HEIGHT 2022-10-24 11:10:00 149.9 cm WEIGHT 2022-10-24 11:10:00 52.753 kg Systolic blood 2022-07-02 21:45:00 106 mm[Hg] Univer sity of pressure [facility] Diastolic blood 2022-07-02 21:45:00 64 mm[Hg] Unive rsity of pressure [facility] Heart rate 2022-07-02 21:45:00 62 /min Universi [facility] Body temperature 2022-07-02 21:45:00 36.56 Lisa Univ ersity [facility] Respiratory rate 2022-07-02 21:45:00 16 /min [facility] 2022-07-02 21:45:00 152.4 cm Universi ty [facility] Body weight 2022-07-02 21:45:00 53.071 kg Universi ty of [facility] BMI 2022-07-02 21:45:00 22.85 kg/m2 Universi ty of [facility] Oxygen saturation in 2022-07-02 21:45:00 99 /min University of Arterial blood by [facility] marlen Pulse oximetry Branch Systolic blood 2022-05-01 19:42:00 111 mm[Hg] Univer sity of pressure [facility] Diastolic blood 2022-05-01 19:42:00 64 mm[Hg] Unive rsity of pressure [facility] Heart rate 2022-05-01 19:42:00 69 /min Universi ty [facility] Body weight 2022-05-01 19:42:00 52.3 kg Universi ty [facility] BMI 2022-05-01 19:42:00 22.52 kg/m2 [facility] ty [facility] Oxygen saturation in 2022-05-01 19:42:00 98 /min University of Arterial blood by [facility] Pulse oximetry Branch Systolic blood 2022-04-11 18:46:00 118 mm[Hg] Univer sity of pressure [facility] Diastolic blood 2022-04-11 18:46:00 72 mm[Hg] Unive rsity of pressure [facility] Heart rate 2022-04-11 18:46:00 69 /min Universi ty [facility] Body temperature 2022-04-11 18:46:00 36.61 Lisa Univ ersity of [facility] Respiratory rate 2022-04-11 18:46:00 18 /min Univ ersity of [facility] Body height 2022-04-11 18:46:00 152.4 cm [facility]i [facility] Body weight 2022-04-11 18:46:00 53.071 kg Universi ty [facility] BMI 2022-04-11 18:46:00 22.85 kg/m2 [facility] Systolic blood 2020-12-15 20:42:00 100 mm[Hg] Univer sity of pressure [facility] Diastolic blood 2020-12-15 20:42:00 49 mm[Hg] Unive rsity of pressure [facility] Heart rate 2020-12-15 20:42:00 73 /min Universi ty [facility] Body temperature 2020-12-15 20:42:00 36.83 Lisa Univ ersity of [facility] Respiratory rate 2020-12-15 20:42:00 16 /min Univ ersity of [facility] Body height 2020-12-15 20:42:00 152.4 cm [facility]i ty [facility] Body weight 2020-12-15 20:42:00 54.205 kg [facility]i [facility] BMI 2020-12-15 20:42:00 23.34 kg/m2 [facility] Systolic blood 2020-03-10 20:06:00 110 mm[Hg] Univer sity of pressure [facility] Diastolic blood 2020-03-10 20:06:00 72 mm[Hg] Unive rsity of pressure [facility] Heart rate 2020-03-10 20:06:00 73 /min Universi ty [facility] Body temperature 2020-03-10 20:06:00 37.11 Lisa Univ ersity of [facility] Respiratory rate 2020-03-10 20:06:00 17 /min Univ ersity of [facility] Body height 2020-03-10 20:06:00 152.4 cm [facility] Body weight 2020-03-10 20:06:00 53.887 kg [facility] BMI 2020-03-10 20:06:00 23.20 kg/m2 [facility] Systolic blood 2020-03-10 20:06:00 110 mm[Hg] Univer sity of pressure [facility] Diastolic blood 2020-03-10 20:06:00 72 mm[Hg] Unive rsity of pressure [facility] Heart rate 2020-03-10 20:06:00 73 /min [facility]i ty [facility] Body temperature 2020-03-10 20:06:00 37.11 Lisa Univ ersity of [facility] Respiratory rate 2020-03-10 20:06:00 17 /min Univ ersity of [facility] Body height 2020-03-10 20:06:00 152.4 cm [facility] Body weight 2020-03-10 20:06:00 53.887 kg [facility] BMI 2020-03-10 20:06:00 23.20 kg/m2 [facility] Systolic blood 2020-03-01 19:59:00 107 mm[Hg] Univer sity of pressure [facility] Diastolic blood 2020-03-01 19:59:00 63 mm[Hg] Unive rsity of pressure [facility] Heart rate 2020-03-01 19:59:00 75 /min Universi ty of [facility] Body temperature 2020-03-01 19:59:00 36.89 Lisa Univ ersity of [facility] Respiratory rate 2020-03-01 19:59:00 16 /min Univ ersity of [facility] Body height 2020-03-01 19:59:00 152.4 cm [facility]i ty [facility] Body weight 2020-03-01 19:59:00 53.071 kg [facility]i ty [facility] BMI 2020-03-01 19:59:00 22.85 kg/m2 [facility] Systolic blood 2019-02-20 20:07:00 106 mm[Hg] [facility]iver [facility]ity of [facility] [place] Diastolic blood 2019-02-20 20:07:00 62 mm[Hg] Unive rsity of pressure [facility] Heart rate 2019-02-20 20:07:00 62 /min Universi ty of [facility] Body temperature 2019-02-20 20:07:00 37.11 Lisa Univ ersity [facility] [place] Respiratory rate 2019-02-20 20:07:00 16 /min Univ ersity of [facility] Body height 2019-02-20 20:07:00 152.4 cm [facility]i ty [facility] [place] Body weight 2019-02-20 20:07:00 51.738 kg [facility]i ty [facility] BMI 2019-02-20 20:07:00 22.28 kg/m2 Universi ty of [facility] Systolic blood 2022-10-26 08:07:00 94 mm[Hg] [facility] Diastolic blood 2022-10-26 08:07:00 56 mm[Hg] [facility] Heart rate 2022-10-26 08:07:00 66 /min [facility] Body temperature 2022-10-26 08:07:00 36.5 Lisa [facility] Respiratory rate 2022-10-26 08:07:00 20 /min [facility] Oxygen saturation in 2022-10-26 08:07:00 99 /min [facility] Arterial blood by Medical Ce nter Pulse oximetry Body height 2022-10-24 11:10:00 149.9 cm [facility] Body weight 2022-10-24 11:10:00 52.753 kg [facility] BMI 2022-10-24 11:10:00 23.49 kg/m2 [facility] BP Systolic 2022-06-19 16:50:00 104 mm[Hg] BP Diastolic 2022-06-19 16:50:00 67 mm[Hg] Weight Measured 2022-06-19 16:50:00 115.80 pounds Height Measured 2022-06-19 16:50:00 60.63 inches Body Temperature 2022-06-19 16:50:00 98.50 degrees Heart Rate 2022-06-19 16:50:00 66.00 /min Respiratory Rate 2022-06-19 16:50:00 BP Systolic 2022-05-01 15:44:00 117 mm[Hg] BP Diastolic 2022-05-01 15:44:00 75 mm[Hg] Weight Measured 2022-05-01 15:44:00 115.40 pounds Height Measured 2022-05-01 15:44:00 60.63 inches Body Temperature 2022-05-01 15:44:00 98.20 degrees Heart Rate 2022-05-01 15:44:00 62.00 /min Respiratory Rate 2022-05-01 15:44:00 Heart Rate 2022-03-29 14:57:00 67.00 /min Respiratory Rate 2022-03-29 14:57:00 BP Systolic 2022-03-29 14:57:00 99 mm[Hg] BP Diastolic 2022-03-29 14:57:00 57 mm[Hg] Weight Measured 2022-03-29 14:57:00 115.40 pounds Height Measured 2022-03-29 14:57:00 60.63 inches Body Temperature 2022-03-29 14:57:00 97.80 degrees Procedures Procedure Date / Time Performing Clinician Source Performed CBC W/PLT COUNT & AUTO 2022-10-26 08:02:00 Yordan Jones [facility] CBC W/PLT COUNT & AUTO 2022-10-26 08:02:00 Yordan Jones [facility] DIFFERENTIAL [facility] CBC (HEMOGRAM ONLY) 2022-10-26 03:39:00 Sara Cordero Eric [facility] COMPREHENSIVE METABOLIC 2022-10-26 03:39:00 AliMayrasundeep Eric [facility] Center BASIC METABOLIC PANEL 2022-10-25 04:26:00 [facility] HEPATIC FUNCTION PANEL 2022-10-25 04:26:00 [facility] CBC (HEMOGRAM ONLY) 2022-10-25 04:26:00 [facility] TISSUE EXAM 2022-10-24 16:09:00 Naomi Brownlee [facility] CHOLECYSTECTOMY, 2022-10-24 13:47:00 [facility] SCREEN, URINE 2022-10-24 12:43:00 Shyam Garcia [facility] CBC (HEMOGRAM ONLY) 2022-10-24 11:57:00 Wendy MiguelValerie [facility] COMPREHENSIVE METABOLIC 2022-10-24 11:57:00 [facility] LIPASE 2022-10-24 11:57:00 [facility] ABORH, MANUAL 2022-10-24 11:46:00 Kaila Carlos [facility] TYPE AND SCREEN, AUTOMATED 2022-10-24 11:19:[address] [facility] DISCLOSURE AND CONSENT, 2022-07-02 06:01:00 Doctor Unassigned, U [facility] MEDICAL AND SURGICAL [facility] PROCEDURES US ABDOMEN LIMITED 2022-06-28 20:33:18 Requisition, Paper [facility] ASSIGNMENT OF BENEFITS 2022-04-11 18:28:59 Doctor Kvng, [facility] REFERRAL- REQUEST/RESPONSE 2022-03-29 05:01:00 Doctor Calderon [facility] AUTHORIZATION TO RELEASE 2020-12-15 05:01:00 Doctor Kvng [facility] PHI TO [facility] CONSENT/REFUSAL FOR 2020-03-01 19:44:17 Doctor Kvng [facility] DIAGNOSIS AND TREATMENT [facility] ASSIGNMENT OF BENEFITS 2020-03-01 19:43:55 Doctor Unassmikael, [facility] BI SCREENING MAMMOGRAM 2019-02-24 20:02:27 Renate Mccabe [facility] BILATERAL Medical Branch CONSENT/REFUSAL FOR 2019-02-24 19:38:25 Doctor Kvng, [facility] DIAGNOSIS AND TREATMENT [facility] ASSIGNMENT OF BENEFITS 2019-02-24 19:36:56 Doctor Kvng, [facility] NO SHOW OR MISSED 2019-02-20 19:47:14 Doctor Kvng, [facility] APPOINTMENT POLICY [facility] h ACKNOWLEDGEMENT Plan of Care Planned Activity Planned Date Details Comments Source Future Scheduled 2025-03-06 DTAP/TDAP/TD VACCINES [facility] 00:00:00 (4 - Td or Tdap) [code Medic al Center = DTAP/TDAP/TD VACCINES (4 - Td or Tdap)] Future Scheduled 2023-10-[address] [facility] Test 00:00:00 Counseling and Medical Cente r Screening (12+) [code = Tobacco Cessation Counseling and Screening (12+)] Future Scheduled 2023-03-[address] [facility] 00:00:00 (Season Ended) [code = Medic al Center INFLUENZA VACCINE (Season Ended)] Future Scheduled 2022-07-[address] [facility] 00:00:00 (12+) [code = Medical Center DEPRESSION SCREENING (12+)] Future Scheduled 2020 SHINGLES VACCINES ([address] [facility] Test 00:00:00 2) [code = SHINGLES Medical Center VACCINES (1 of 2)] Future Scheduled 2015 Lipid panel (procedure) [facility] 00:00:00 [code = 84986197] Medical Ce nter Future Scheduled 1991 Screening for malignant [facility] Test 00:00:00 neoplasm of cervix Medical C enter (procedure) [code = 164139154] Future Scheduled 1988 HEPATITIS C SCREENING [facility] 00:00:00 [code = HEPATITIS C Medical Center SCREENING] Future Scheduled 1970 COVID-19 VACCINE (#1) [facility] 00:00:00 [code = COVID-[address] VACCINE (#1)] Future Scheduled 1970 Screening for malignant [facility] Test 00:00:00 neoplasm of breast Medical C enter (procedure) [code = 523919315] Future Scheduled 1970 CT Colonography (combo) [facility] Test 00:00:00 [code = CT Colonography [facility] (combo)] Future Scheduled 1970 Screening for malignant [facility] Test 00:00:00 neoplasm of colon Medical Ce nter (procedure) [code = 123531758] Future Scheduled 1970 Screening for malignant [facility] Test 00:00:00 neoplasm of colon Medical Ce nter (procedure) [code = 195380559] Future Scheduled 1970 Screening for malignant [facility] Test 00:00:00 neoplasm of colon Medical Ce nter (procedure) [code = 599529952] Future Scheduled 1970 Screening for malignant [facility] Test 00:00:00 neoplasm of colon Medical Ce nter (procedure) [code = 711675296] Future Scheduled 1970 Sigmoidoscopy [code = [facility] 00:[facility]:00 Sigmoidoscopy] Medical Marguerite r Goal Plan of Care Note [code = 96343-4] Goal Plan of Care Note [code = 26903-1] Goal Plan of Care Note [code = 61839-7] Goal Plan of Care Note [code = 46414-5] Goal Plan of Care Note [code = 34847-7] Goal Plan of Care Note [code = 20313-4] Goal Plan of Care Note [code = 20034-0] Goal Plan of Care Note [code = 13751-8] Goal Plan of Care Note [code = 99658-6] Goal Plan of Care Note [code = 92402-0] Goal Plan of Care Note [code = 77759-0] Encounters Start End Encounter Admission Attending Care Care Encounter Source Date/Time Date/Time Type Type Clinicians Facility Department ID 2022-08-29 Outpatient Brianna [facility] [id number] Univers 12:17:35 LUZ MARINA [facility] 2022-10-24 2022-10-26 Outpatient ER [facility] Surgery [id number] SLE 08:40:00 09:45:00 2022-10-24 2022-10-26 Hospital Omer Marshall Consuelo [facility] [id number] 08[facility]40[facility]00 09:45:00 Encounter Cat Miguel [facility] 2022-10-24 2022-10-[address] [facility] [id number] 13:47:00 16:34:00 Event Siva [facility] 2022-10-24 2022-10-24 Surgery Ozanum, [facility] [id number] 13:14:00 16:14:00 Naomi [facility] 2022-10-24 2022-10-24 Travel [facility] [id number] [facility] 00:[facility] 00:00[facility]00 [facility] 2022-07-04 2022-07-04 Outpatient PETE FREEMAN [id number] [place] 13:57:10 13:57:10 [id number] F Jack 2022-07-02 2022-07-02 [facility] [id number] Univers 15:45:00 16:15:00 Visit Dayan ANDERSON [id number] [facility] [id number] [facility] AT [id number] Nd darwinjame FAIZANLisha [address] [place] [address] 2022-07-02 2022-07-02 Outpatient Brianna DALAL [facility] [id number] Univers 15:45:00 15:45:00 DAYAN kinsey [facility] 2022-07-02 2022-07-02 Orders Doctor KEO [id number] Univers 00:00:00 00:00:00 Only Unassigned, KAIA [id number] ity of [place] [facility] 4.2.7.2.686 William as [id number] [facility] 009 Branch 2022-06-28 2022-06-28 Outpatient R RADIOLOGY [facility] [id number] Univers 13:47:04 23:59:00 ity of [facility] 2022-06-28 2022-06-28 [facility] Radiology [facility] [id number] Univers 13:47:04 23:59:00 Encounter LONNIE [id number] ity of [place] 4.2.7.2.686 [facility] [id number] [facility] 806 Branch 2022-06-19 2022-06-19 Outpatient SFA SFA [id number] [place] 16:43:23 16:43:23 [id number] F [place] 2022-06-19 2022-06-19 Outpatient [id number] 00:00:00 00:00:00 Visit [id number] 2022-05-21 2022-05-21 [facility] [id number] Univers 15:00:00 15:00:00 PURNIMA kinsey o f [facility] 2022-05-03 2022-05-03 [facility] [id number] Univers 14:10:20 23:59:00 ZIYAD mossy o f [facility] 2022-05-03 2022-05-03 [facility] [id number] Univers 14:10:20 23:59:00 Encounter Ziyad FLEMING [id number] ity of [place] 4.2.7.2.686 [place] [id number] [facility] 800 Branch 2022-05-01 2022-05-01 Outpatient SFA [facility] [id number] [place] 15:38:39 15:38:39 [id number] Jack 2022-05-01 2022-05-01 Outpatient R ARISTEO [facility] [id number] Univers 14:40:00 15:04:21 PURNIMA carr [facility] 2022-05-01 2022-05-01 Office [facility] 1.2.840.114 [id number] Univers 14:40:00 15:04:21 Visit Purnima PANOLA 350.1.13.10 ity of [place].2.7.2.[place] [id number] Nd dic[address] 2022-05-01 2022-05-01 Outpatient [id number]- [id number] [id number] 00:00:00 00:00:00 Visit 2w3k-9905 h7l-0763-9 -3a2h-41y k7f-18e98p [id number] 2022-04-11 2022-04-11 Outpatient R GIFTY [facility] [id number] Univers 13:30:00 14:27:26 ZOËTEETEESundeep ajaylisha valadez [facility] 2022-04-11 2022-04-11 Office [facility] 1.2.840.114 [id number] Univers 13:30:00 14:27:26 Visit Zoëlulú Reed [place] 350.1.13.10 ity of [facility] 4.2.7.2.686 [place] as MATERNAL [phone] Med ical & CHILD [address] [place] [address] 2022-04-11 2022-04-11 Orders Doctor KEO 1.2.840.114 [id number] Univers 00:00:00 00:00:00 Only Unassigned, KAIA 350.1.13.10 ity of [place] [facility] 4.2.7.2.686 [place] as [id number] [address] 2022-03-29 2022-03-29 Orders Doctor KEO 1.2.840.114 [id number] Univers 00:00:00 00:00:00 Only Unassigned, KAIA 350.1.13.10 ity of [place] [facility] 4.2.7.2.686 William as [phone] [address] 2022-03-29 2022-03-29 Outpatient [id number] 00:00:00 00:00:00 Visit 53d6-7085 5z0-0245-4 -23p5-sj2 0s4-wp036v 63e7b5e7g 4d6f8e 2021-08-17 2021-08-17 Telephone [facility] 1.2.840.114 [id number] Univers 00:00:00 00:00:00 Kevin Munoz [place] 350.1.13.10 it y of [facility] 4.2.7.2.686 [place] as MATERNAL [phone] [facility] & [address] 2021-03-02 2021-03-02 [facility] [id number] Univers 15:15:00 15:15:00 KEVIN kinsey [facility] 2020-12-15 2020-12-15 Office [facility] 1.2.282.734 [id number] Univers 15:23:52 16:05:29 Visit Kevin Munoz [place] 350.1.13.10 it y of [facility] 4.2.7.2.686 [place] as MATERNAL [id number] [facility] & [address] 2020-12-15 2020-12-15 [facility] [id number] Univers 15:45:00 15:45:00 KEVIN kinsey [facility] 2020-12-15 2020-12-15 Orders Doctor CROWLEY 1.2.840.114 [id number] Univers 00:00:00 00:00:00 Only Unassigned, KAIA 350.1.13.10 ity of [place] [facility] 4.2.7.2.686 William as [id number] [address] 2020-10-11 2020-10-11 Patient [facility] 1.2.840.114 [id number] Univers 00:00:00 00:00:00 Outreach Juan PARSONS 350.1.13.10 i ty of [facility] 4.2.7.2.686 [place] [id number] Nd dical [address] 2020-03-10 2020-03-10 Office [place], [facility] Resident UNIVERSIT 1.2.8 40.114 [id number] Univers 14:45:17 16:29:30 Visit MichaelRadha Y HEALTH 350.1.13.10 ity of [facility] 4.2.7.2.[place] [id number] [facility] [address] 2020-03-10 2020-03-10 Office [facility] UNIVERSIT 1.2.840.114 [id number] 14:45:17 16:29:30 Visit Resident [facility] 350.1.13.10 CLINICS 4.2.7.2.686 [id number] [facility] 2020-03-10 2020-03-10 Outpatient R [facility] [id number] Univers 14:30:00 14:30:00 ity of [facility] 2020-03-01 2020-03-01 Office [facility] 1.2.709.910 [id number] Univers 14:44:43 15:51:53 Visit Kevin Munoz [place] 350.1.13.10 it y of [facility] 4.2.7.2.686 [place] as MATERNAL [id number] Med ical & CHILD [address] [place] [address] 2020-03-01 2020-03-01 Outpatient [facility] [id number] Univers 15:00:00 15:00:00 KEVIN kinsey [facility] 2020-03-01 2020-03-01 Outpatient [facility] [id number] Univers 08:00:00 08:00:00 KEVIN kinsey [facility] 2020-03-01 2020-03-01 Orders Doctor KEO 1.2.840.114 [id number] Univers 00:00:00 00:00:00 Only Unassigned, KAIA 350.1.13.10 ity of [place] [facility] 4.2.7.2.686 William as [id number] [facility] [address] 2020-02-03 2020-02-03 Telephone [facility] 1.2.840.114 [id number] Univers 00:00:00 00:00:00 Sherin C [place] 350.1.13.10 ity of [place] 4.2.7.2.686 [place] as MATERNAL [id number] [facility] & CHILD [address] [place] [address] 2019-11-18 2019-11-18 Telephone [facility] 1.2.454.279 [id number] Univers 00:00:00 00:00:00 Patient [place] 350.1.13.10 it y of Does Not [facility] 4.2.7.2.[place] A MATERNAL [id number] [facility] & CHILD [address] [place] [address] 2019-11-11 2019-11-[address] [facility] [id number] Univers 08:15:00 08:15:00 SHERIN kinsey o f [facility] 2019-11-07 2019-11-08 Inpatient U RICARDA [facility] [id number] BL 11:06:00 17:00:00 MARIA DEL ROSARIO 2019-11-05 2019-11-05 Outpatient R RACHAEL, [facility] [id number] Univers 11:20:00 11:20:00 BRANDON ity [facility] 2019-11-05 2019-11-05 Telephone [facility] 1.2.840.114 [id number] Univers 00:00:00 00:00:00 Sherin Casanova [place] 350.1.13.10 ity of [facility] 4.2.7.2.686 [place] as MATERNAL [id number] [facility] & CHILD [address] [place] [address] 2019-11-02 2019-11-02 Nurse PcpKEO 1.2.840.114 [id number] Univers 00:00:00 00:00:00 Triage Patient KAIA 350.1.13.10 it y of Does Not [facility] [place].2.[place] A [id number] [facility] [address] 2019-02-24 2019-02-24 [facility] 1.2.610.970 [id number] Univers 14:30:00 23:59:00 Encounter Renate Fleming 350.1.13.10 ity of [place]2.7.2.[place] [id number] [facility] [address] 2019-02-20 2019-02-20 Office Marah, [facility] 1.2.238.[id number] [facility] 15:01:41 15:39:26 Visit Kevin Munoz [place] 350.1.13.10 it y of [facility] 4.2.7.2.686 [place] as MATERNAL [id number] Med ical & CHILD 107 [facility] 2019-02-20 2019-02-20 Orders Doctor KEO 1.2.840.114 [id number] Univers 00:00:00 00:00:00 Only Unassigned, KAIA 350.1.13.10 ity of [place] [facility] 4.2.7.2.686 William as [id number] [facility] [address] [place] 2019-02-17 2019-02-17 Telephone Team, [facility] KEO 1.2.840.[id number] [facility] 00:00:00 00:00:00 Health KAIA 350.1.13.10 it y of [facility] 4.2.7.2.686 [place] [id number] [address] Results Test Description Test Time Test Comments Results Result Comments Source Tissue Exam 2022-11-04 15:44:46 Test Item Value Reference Range Interpretation Comme nts Case Report (test code = 104) Surgical Pathology Report Case: [id number] Authorizing Provider: Naomi Brownlee MD Collected: 10/24/2022 04:09 PM Ordering Location: [facility] PERI[facility] Received: 10/25/2022 09:45 AM SERVICES Pathologist: Chauncey Thurman MD Specimen: Gallbladder DIAGNOSIS (test code = 3220) c0tbqLLhJDDul6suXYZmiMZrXcZoVoVbQrFlUx pc cDMvQNyquqJuXYilwKcmDAOxSNQeIF9swRpgwEe6 zYrwTULpqqT2jPGmROqfz7feFTL1c4soifohSBWc LBczLv0ttBEihMrsFzGtSUCcAPv6cU46VQPxeS4k aFDxJXl0NURbsRUrrqOkErUsSQKyiJHxfLV1YEWc ES1qqtkzRHpgYVmlELKqqeF5ENMozHHwN4NtSZJg XC7exsueGEP4QAjaKQZpNFE9EjReFWMxx5Ylnxi2 MjBccGFyZFxwbGFpblxmczIwIEEuIEdBTExCTEFE OQNPEAKIRM9IPOGHX8TMQ3NOSVnirGRsAIXkHGWC Ii1YEOBkO3GGV7FJMNQoS0vEJDDOBQYVANVDRf4a fDTcdZteyaEwERxyp2NfMAhxUOQiCJ3ngJisXJXy LA4hNVNkP2gcfN8galg7LlYpNOTuEgD8XKLncsP3 Zzf7XOEgPIbaw4fiu1WwSPCcXPl2uWsnAkAnZZIa t0yzaqUpYsDdNZDjCHPmJHFpfVPyN471a2fvu0mj naYgfWH2BQPlCTG4PFyosxPnagD9JEyejZTtOaD9 ECrzbeRaKYosouHvslDzFws2BVVtB079EDI3aZml o2pvVOA3QEQjQVMlLuMoAj3ysGFhW002KTVaNHWA AOPcpXy4YWMrhrYpzwPxiLAOd177N444x6sbINWf wrAdiOvGtshko7jfU266DQXacQZuhbDbDvRzQWAl wSKuhYH5NJCtBP4fsacjQXzbWYyxZKWljyQ3PFEj cLYjD5ZiAHFbYO0nwfbkBRY0EHlpIZIwNOU8XjDv NEQxi0Equhp5ZpQgor4orp25MVX3o8StjLeqVOO0 PEA0PkYzZw8gcVWrJVPgVD7fFwJonMKaGQFztc14 qYbsYYjaWXZ2WCMnxtSch4Csw0ncXyVnfiMzP9zn L4UnNBMpOPVfLSDvZpCsqxXbn8Mhc8NfoTTppZa4 t5llLSNwVCCsfDknp3daHLK8HFGocIEzK7nntB9v LZGbJC4cmhotf6rpEGorWYrbFSRpnFE4dqF3LQEp cUXlJ6KjnT8mRUBnPGtbXLMosfl8SmQyAa3klDQr eTcyMFxzYmtwYWdlXHBnbmNvbnRccGduZGVjXHBs YWluXHBsYWluXGYwXGZzMjRccWxcbGFuZzEwMzNc hRnueJugMZtnWcReZGTcJBerA0yuEuJhTcQuVpy2 QTKfmKKtOCLsEeq6NCQimVXyJBKArQmoxX7aYUEz bEizqH5fnEC1ZBVlfcJobJNCgO7bLAPIzG9kZhQ7 VFFeKle8SIP3FtOztBJczC9= CPT Code(s) (test code = 0157) a9uejNUuNFNvxERpLDTnJOymuiZbCGRwoEQk Z3Bh spjlXQzdXV5eMN1asXbtxLFmaXEzLLJmIxTzy8xb y131uMAqr1bbTTAFwqmplCt0gPkoX10ap3E7Exkd Q60qnXDqKQH3HZFkAZFoyQQfLANsAHS3HLNzoZCe G3xaNZNrIM1wufadXWvkWJxkOXSjgER8ARBuhSVp C9RdJAAqPUvfEYZstha0NwGoLc6gmGQlkNcpYDwd YXJkXHBsYWluXGZzMjAgODgzMDRccGFyfQ== CLINICAL HISTORY (test code = 3356) z7tomZQfWSDqkBOnMIXgXPxyniYhGHC cmIXmE9Pj ejwzIVfnDS9nYF4uyBwveEHmvBCoYGAmUqAxj8ej m701fNNvg6evJGYQRUhsNUVDNNf3l3wqTMZGjkuv fFr2kErzQ05hu2C8TmrkX20pxAHrWHY0YMXeVVGu zZQrZRHgYNV7FRXbnQUuE3moCTTcEL2nceefPEbt UNqtCKIldUY9BSUkvNIbZ6WjYYKoVYbbOBGrfdq7 WfXoDi3ruNKlpPmdLSalNBBdPPNgISgqBCIaHPAa XaUxGYO4qQCgR6fnkPFstDH5nBLhh2opAOY3 GROSS DESCRIPTION (test code = x9rdkQIkJBEeqOYkXXEaYDypuaCuVLWegUYn [facility] [id number]) [file] cn0= MICROSCOPIC DESCRIPTION (test code = f1dagWNeZFCeeKVaSRIhVAxmglGuEU [place] [address]) woruYNvhKN5tKN1aaXkgrBFplGQzEJBpNdWso5cg r323fNIij9erRZDYwcizuUq5mAlyT75vn8X7Uupa B55zbNWyZDI2TTNeOISbdDQwOXLoDMQ3GAEbkFKr I9ntPUEsWI5agvenAUvvHOtlJDPlfYO7HBPugFCd I5GnVSJxVFeaGVOjugb3CdFvAw1afYYwyCwuJRka GVBvJRCbKBfnHTJrWcSfKLZdEw1dgILzAnXyYPFy clxwYXJ9 [facility] [id number] 15:44:46Surgical Pathology Report Case: [id number] Authorizing Provider: Naomi Brownlee MD Collected: 10/24/2022 04:09 PM Ordering Location: [facility] PERI[facility] Received: 10/25/2022 09:45 AM SERVICES Pathologist: Chauncey Thurman MD Specimen: Gallbladder A. GALLBLADDER, CHOLECYSTECTOMY - CHRONIC CALCULUS CHOLECYSTITIS. Signing Pathologist Direct Phone Line: [phone] signed by Chauncey lord MD on 11/04/2022 at 3:44 [id number] cholecystitisA. Gallbladder Received fresh, labeled withthe patient's name, MRN and "gallbladder" and consists of an intact gallbladder (7.0 x 2.5 x 2.0 cm)which has a clipped cystic duct. The serosa is stanley-green focally hyperemic. A cystic duct lymph nodeis not present. The gallbladder is opened to reveal multiple yellow-brown multifaceted calculi ranging from 0.5-2.0 cm in greatest dimension, 5.0 x 5.0 x 0.7 cm in aggregate, admixed with green viscousbile. The mucosa is green and velvety, focally denuded. the wall thickness 0.1 cm. No gross lesions are identified. Indoor Landscaper/Gardener sections are submitted.Section codeA1: Cystic duct margin (blue), en faceA2: Gallbladder wall Performed.CBC W/PLT COUNT & AUTO DIFFERENTIAL 2022-10-26 08:10:09 Test Item Value Reference Range Interpretation Comments WHITE BLOOD CELL COUNT (BEAKER) 8.6 K/ L 3.5-10.5 (test code = 775) RED BLOOD CELL COUNT (BEAKER) 3.29 M/ L 3.93-5.22 L (test code = 761) HEMOGLOBIN (BEAKER) (test code = 9.8 GM/DL 11.2-15.7 L 410) HEMATOCRIT (BEAKER) (test code = 29.3 % 34.1-44.9 L 411) MEAN CORPUSCULAR VOLUME (BEAKER) 89 fL 79-95 (test code = 753) MEAN CORPUSCULAR HEMOGLOBIN 29.8 pg 25.6-32.2 (BEAKER) (test code = 751) MEAN CORPUSCULAR HEMOGLOBIN CONC 33.4 GM/DL 32.2-35.5 (BEAKER) (test code = 752) RED CELL DISTRIBUTION WIDTH 13.1 % 11.7-14.4 (BEAKER) (test code = 412) PLATELET COUNT (BEAKER) (test 191 K/CU MM 150-450 code = 756) MEAN PLATELET VOLUME (BEAKER) 11.3 fL 9.4-12.3 (test code = 754) NUCLEATED RED BLOOD CELLS 0 /100 WBC 0-0 (BEAKER) (test code = 413) NEUTROPHILS RELATIVE PERCENT 72 % (BEAKER) (test code = 429) LYMPHOCYTES RELATIVE PERCENT 20 % (BEAKER) (test code = 430) MONOCYTES RELATIVE PERCENT 8 % (BEAKER) (test code = 431) EOSINOPHILS RELATIVE PERCENT 0 % (BEAKER) (test code = 432) BASOPHILS RELATIVE PERCENT 0 % (BEAKER) (test code = 437) NEUTROPHILS ABSOLUTE COUNT 6.20 K/ L 1.56-6.13 H (BEAKER) (test code = 670) LYMPHOCYTES ABSOLUTE COUNT 1.70 K/ L 1.18-3.74 (BEAKER) (test code = 414) MONOCYTES ABSOLUTE COUNT (BEAKER) 0.67 K/ L 0.24-0.36 H (test code = 415) EOSINOPHILS ABSOLUTE COUNT 0.01 K/ L 0.04-0.36 L (BEAKER) (test code = 416) BASOPHILS ABSOLUTE COUNT (BEAKER) 0.02 K/ L 0.01-0.08 (test code = 417) IMMATURE GRANULOCYTES-RELATIVE 0.20 % 0.00-1.00 PERCENT (BEAKER) (test code = 2801) COMPREHENSIVE METABOLIC [id number] 05:00:50 Test Item Value Reference Range Interpretation Comments TOTAL PROTEIN 6.2 gm/dL 6.0-8.3 (BEAKER) (test code = 770) ALBUMIN (BEAKER) 3.6 g/dL 3.5-5.0 (test code = 1145) ALKALINE 77 U/L 40-150 PHOSPHATASE (BEAKER) (test code = 346) BILIRUBIN TOTAL 0.8 mg/dL 0.2-1.2 (BEAKER) (test code = 377) SODIUM (BEAKER) 138 meq/L 136-145 (test code = 381) POTASSIUM (BEAKER) 3.8 meq/L 3.5-5.1 (test code = 379) CHLORIDE (BEAKER) 106 meq/L 98-107 (test code = 382) CO2 (BEAKER) (test 25 meq/L 22-29 code = 355) BLOOD UREA 10 mg/dL 7-21 NITROGEN (BEAKER) (test code = 354) CREATININE 0.64 mg/dL 0.57-1.25 (BEAKER) (test code = 358) GLUCOSE RANDOM 106 mg/dL 70-105 H (BEAKER) (test code = 652) CALCIUM (BEAKER) 8.8 mg/dL 8.4-10.2 (test code = 697) AST (SGOT) 83 U/L 5-34 H (BEAKER) (test code = 353) ALT (SGPT) 192 U/L 6-55 H (BEAKER) (test code = 347) EGFR (BEAKER) 106 Interpretatio n of eGFR (test code = 1092) mL/min/1.[address] age Description sq m Result G1 Marli l or high >=90 G2 Mildly decreased 60-89 G3a Mildl y to moderately 45-5 9 G3b Moderately to s everely 30-44 G4 Severl y decreased 15-29 G5 Kidney failure <15Reported eGF R is based on the CKD-EPI 2020 equation that d oes not use a race coefficientEsti mated GFR is not as accur ate as Creatinine Korin josue in predicting glom erular filtration rate . Estimated GFR is not appl icable for dialysis patien ts Veterinary Manager ID - MARCOCBC (HEMOGRAM ONLY)2022-10-26 04:33:37 Test Item Value Reference Range Interpretation Comments WHITE BLOOD CELL COUNT (BEAKER) 9.9 K/ L 3.5-10.5 (test code = 775) RED BLOOD CELL COUNT (BEAKER) 3.29 M/ L 3.93-5.22 L (test code = 761) HEMOGLOBIN (BEAKER) (test code = 9.8 GM/DL 11.2-15.7 L 410) HEMATOCRIT (BEAKER) (test code = 29.6 % 34.1-44.9 L 411) MEAN CORPUSCULAR VOLUME (BEAKER) 90 fL 79-95 (test code = 753) MEAN CORPUSCULAR HEMOGLOBIN 29.8 pg 25.6-32.2 (BEAKER) (test code = 751) MEAN CORPUSCULAR HEMOGLOBIN CONC 33.1 GM/DL 32.2-35.5 (BEAKER) (test code = 752) RED CELL DISTRIBUTION WIDTH 13.2 % 11.7-14.4 (BEAKER) (test code = 412) PLATELET COUNT (BEAKER) (test 187 K/CU MM 150-450 code = 756) MEAN PLATELET VOLUME (BEAKER) 12.1 fL 9.4-12.3 (test code = 754) NUCLEATED RED BLOOD CELLS 0 /100 WBC 0-0 (BEAKER) (test code = 413) BASIC METABOLIC [id number] 07:55:23 Test Item Value Reference Range Interpretation Comments SODIUM (BEAKER) 132 meq/L 136-145 L (test code = 381) POTASSIUM 4.1 meq/L 3.5-5.1 (BEAKER) (test code = 379) CHLORIDE (BEAKER) 105 meq/L 98-107 (test code = 382) CO2 (BEAKER) 21 meq/L 22-29 L (test code = 355) BLOOD UREA 9 mg/dL 7-21 NITROGEN (BEAKER) (test code = 354) CREATININE 0.65 mg/dL 0.57-1.25 (BEAKER) (test code = 358) GLUCOSE RANDOM 126 mg/dL 70-105 H (BEAKER) (test code = 652) CALCIUM (BEAKER) 8.8 mg/dL 8.4-10.2 (test code = 697) EGFR (BEAKER) 106 Interpretatio n of eGFR (test code = mL/min/1.73 values Stage De scription 1092) sq m Result G1 Marli l or high >=90 G2 Mildly decreased 60-89 G3a Mildl y to moderately 45-5 9 G3b Moderately to s everely 30-44 G4 Severl y decreased 15-29 G5 Kidne y failure <15Reported eGF R is based on the CKD-EPI 2020 equation that d oes not use a race coefficientEsti mated GFR is not as accur ate as Creatinine Korin josue in predicting glom erular filtration rate . Estimated GFR is not appl icable for dialysis patien ts Veterinary Manager ID - ADMINOperator ID - MARCOHEPATIC FUNCTION [id number] 05:26:19 Test Item Value Reference Range Interpretation Comments TOTAL PROTEIN (BEAKER) (test code = 6.0 gm/dL 6.0-8.3 770) ALBUMIN (BEAKER) (test code = 1145) 3.7 g/dL 3.5-5.0 BILIRUBIN TOTAL (BEAKER) (test code 0.9 mg/dL 0.2-1.2 = 377) BILIRUBIN DIRECT (BEAKER) (test 0.3 mg/dL 0.1-0.5 code = 706) ALKALINE PHOSPHATASE (BEAKER) (test 81 U/L 40-150 code = 346) AST (SGOT) (BEAKER) (test code = 179 U/L 5-34 H 353) ALT (SGPT) (BEAKER) (test code = 280 U/L 6-55 H 347) Veterinary Manager ID - ADMINCBC (HEMOGRAM ONLY)2022-10-25 04:59:43 Test Item Value Reference Range Interpretation Comments WHITE BLOOD CELL COUNT (BEAKER) 11.0 K/ L 3.5-10.5 H (test code = 775) RED BLOOD CELL COUNT (BEAKER) 3.67 M/ L 3.93-5.22 L (test code = 761) HEMOGLOBIN (BEAKER) (test code = 10.8 GM/DL 11.2-15.7 L 410) HEMATOCRIT (BEAKER) (test code = 32.5 % 34.1-44.9 L 411) MEAN CORPUSCULAR VOLUME (BEAKER) 89 fL 79-95 (test code = 753) MEAN CORPUSCULAR HEMOGLOBIN 29.4 pg 25.6-32.2 (BEAKER) (test code = 751) MEAN CORPUSCULAR HEMOGLOBIN CONC 33.2 GM/DL 32.2-35.5 (BEAKER) (test code = 752) RED CELL DISTRIBUTION WIDTH 12.6 % 11.7-14.4 (BEAKER) (test code = 412) PLATELET COUNT (BEAKER) (test 213 K/CU MM 150-450 code = 756) MEAN PLATELET VOLUME (BEAKER) 11.8 fL 9.4-12.3 (test code = 754) NUCLEATED RED BLOOD CELLS 0 /100 WBC 0-0 (BEAKER) (test code = 413) Screen, [id number] 13:12:05 Test Item Value Reference Range Interpretation Comments Preg Test, Ur (test code = 2112-1) Negative Negative Lab Interpretation (test code = Normal 71732-7) [facility] S[facility], [id number] 13:12:05 Test Item Value Reference Range Interpretation Comments TEST URINE (BEAKER) (test Negative Negative code = 583) [id number] 12:27:35 Test Item Value Reference Range Interpretation Comments LIPASE (BEAKER) (test code = 749) 41 U/L 8-78 Veterinary Manager ID - [facility] METABOLIC [id number] 12:27:34 Test Item Value Reference Range Interpretation Comments TOTAL PROTEIN 6.0 gm/dL 6.0-8.3 Specimen sligh tly (BEAKER) (test hemolyzed code = 770) ALBUMIN (BEAKER) 3.6 g/dL 3.5-5.0 Specimen sl ightly (test code = 1145) hemolyzed ALKALINE 80 U/L 40-150 PHOSPHATASE (BEAKER) (test code = 346) BILIRUBIN TOTAL 0.7 mg/dL 0.2-1.2 Specimen sli ghtly (BEAKER) (test hemolyzed code = 377) SODIUM (BEAKER) 140 meq/L 136-145 (test code = 381) POTASSIUM (BEAKER) 4.1 meq/L 3.5-5.1 Specimen slightly (test code = 379) hemolyzed CHLORIDE (BEAKER) 111 meq/L 98-107 H (test code = 382) CO2 (BEAKER) (test 24 meq/L 22-29 code = 355) BLOOD UREA 12 mg/dL 7-21 NITROGEN (BEAKER) (test code = 354) CREATININE 0.64 mg/dL 0.57-1.25 Specimen slight ly (BEAKER) (test hemolyzed code = 358) GLUCOSE RANDOM 87 mg/dL 70-105 (BEAKER) (test code = 652) CALCIUM (BEAKER) 8.6 mg/dL 8.4-10.2 (test code = 697) AST (SGOT) 248 U/L 5-34 H Specimen slight ly (BEAKER) (test hemolyzed code = 353) ALT (SGPT) 206 U/L 6-55 H Specimen slight ly (BEAKER) (test hemolyzed code = 347) EGFR (BEAKER) 106 Interpretatio n of eGFR (test code = 1092) mL/min/1.[address] age Description sq m Result G1 Marli l or high >=90 G2 Mildly decreased 60-89 G3a Mildl y to moderately 45-5 9 G3b Moderately to s everely 30-44 G4 Severl y decreased 15-29 G5 Kidney failure <15Reported eGF R is based on the CKD-EPI 2020 equation that d oes not use a race coefficientEsti mated GFR is not as accur ate as Creatinine Korin salas in predicting glom erular filtration rate . Estimated GFR is not appl icable for dialysis patien ts Veterinary Manager ID - KAIN WCBC (HEMOGRAM ONLY)2022-10-24 12:13:13 Test Item Value Reference Range Interpretation Comments WHITE BLOOD CELL COUNT (BEAKER) 3.5 K/ L 3.5-10.5 (test code = 775) RED BLOOD CELL COUNT (BEAKER) 3.88 M/ L 3.93-5.22 L (test code = 761) HEMOGLOBIN (BEAKER) (test code = 11.3 GM/DL 11.2-15.7 410) HEMATOCRIT (BEAKER) (test code = 34.6 % 34.1-44.9 411) MEAN CORPUSCULAR VOLUME (BEAKER) 89 fL 79-95 (test code = 753) MEAN CORPUSCULAR HEMOGLOBIN 29.1 pg 25.6-32.2 (BEAKER) (test code = 751) MEAN CORPUSCULAR HEMOGLOBIN CONC 32.7 GM/DL 32.2-35.5 (BEAKER) (test code = 752) RED CELL DISTRIBUTION WIDTH 12.9 % 11.7-14.4 (BEAKER) (test code = 412) PLATELET COUNT (BEAKER) (test 207 K/CU MM 150-450 code = 756) MEAN PLATELET VOLUME (BEAKER) 11.6 fL 9.4-12.3 (test code = 754) NUCLEATED RED BLOOD CELLS 0 /100 WBC 0-0 (BEAKER) (test code = 413) BI SCREENING MAMMOGRAM [id number] 22:24:01Examination:BI SCREENING MAMMOGRAM BILATERAL History:Patient is 48 year old and is seen for:?Routine screening.Family medical history includes breast cancer in mother. No relevant hormone history has been documented for this patient. No relevant surgical history has been documented for this patient. No relevant medical history has been documented for this patient. Computer-aided detection (CAD) utilized. Comparisons: 02/14/2017 DIGITAL MAMMOGRAM, SCREENING, 12/14/2014 DIGITAL MAMMOGRAM, SCREENING, 01/12/2014 DIGITAL MAMMOGRAM, SCREENING, and 01/12/2013 DIGITAL MAMMOGRAM, SCREENING Findings:The breasts are heterogeneously dense, which may obscure small masses. There is no evidence of suspicious masses, calcifications, or other abnormal findings. Impression:No mammographic evidence of malignancy. Recommendation:Annual mammographic follow-up BI[facility]RADS Category: [facility]
[2022-11-23 11:59] LABS: Absolute Lymphocytes (CBC) 1.6 K/uL (0.7-4.9); Hematocrit 36.7 % (36.0-45.0); MCV 89.5 fL (80-100); MPV 9.9 fL (7.6-11.3)
[2022-11-23 12:11] LABS: Potassium 3.5 mEq/L (3.5-5.1)
--- NOTE | 2022-11-23 12:55 | RAD REPORT ---
EXAM DESCRIPTION: US - Pelvis Complete - 11/23/2022 12:39 pm CLINICAL HISTORY: VAGINAL BLEEDING COMPARISON: No comparisons FINDINGS: The uterus is normal in size, shape and echotexture. The uterus measures 8.3 x 4.2 x 4.7 c m Hypoechoic lesion in the uterine fundus measuring 2.2 x 2.1 x 2.5 cm is consistent with a subserosa l fibroid. The endometrial stripe measures 2 mm, normal. Both ovaries obscured due to bowel gas. No significant pelvic ascites. IMPRESSION: Small uterine fibroid. Neither ovary visualized due to bowel gas.
--- NOTE | 2022-11-23 13:11 | RAD REPORT ---
EXAM DESCRIPTION: US - Transvaginal Study Probe - 11/23/2022 1:03 pm CLINICAL HISTORY: VAGINAL BLEEDING Pelvic pain. COMPARISON: Pelvis Complete dated 11/23/2022elvis Complete dated 11/23/2022 FINDINGS: Endometrial echo complex measures 6 millimeters. Hypoechoic subserosal fibroid noted measu ring 2.8 x 1.7 x 2.7 cm. Neither ovary was visualized due to bowel gas. No free fluid. IMPRESSION: Fibroid uterus.Neither ovary visualized due to bowel gas.
--- NOTE | 2022-11-23 13:24 | ER ---
Nurse's Notes [facility] Name: Jaida Moyer Age: 52 yrs Sex: Female : 1970 Arrival Date: 11/23/2022 Time: 11:28 Bed 19 Private MD: Diagnosis: Abnormal uterine and vaginal bleeding, unspecified Presentation: 11/23 11:44 Chief complaint: Patient states: spotting X 1 month, was sent by her PCP. Coronavirus iw screen: At this time, the client does not indicate any symptoms associated with coronavirus-19. Ebola Screen: Patient negative for fever greater than or equal to 101.5 degrees Fahrenheit, and additional compatible Ebola Virus Disease symptoms Patient denies exposure to infectious person. Patient denies travel to an Ebola-affected area in the 21 days before illness onset. No symptoms or risks identified at this time. Initial Sepsis Screen: Does the patient meet any 2 criteria? No. Patient's initial sepsis screen is negative. Does the patient have a suspected source of infection? No. Patient's initial sepsis screen is negative. Risk Assessment: Do you want to hurt yourself or someone else? Patient reports no desire to harm self or others. Onset of symptoms was October 2022. 11:44 Method Of Arrival: Ambulatory iw 11:44 Acuity: NIC 3 iw Historical: - Allergies: 11:45 No Known Allergies; iw - Home Meds: 11:45 None [Active]; iw - PMHx: 11:45 None; iw - PSHx: 11:45 Cholecystectomy; iw - Social history:: Smoking status: Patient reports the use of cigarette tobacco products. Screenin:54 [facility] ED Fall Risk Assessment (Adult) History of falling in the last 3 months, kc6 including since admission No falls in past 3 months (0 pts) Confusion or Disorientation No (0 pts) Intoxicated or Sedated No (0 pts) Impaired Gait No (0 pts) Mobility Assist Device Used No (0 pt) Altered Elimination No (0 pt) Score/Fall Risk Level 0 - 2 = Low Risk Oriented to surroundings, Maintained a safe environment, Educated pt \T\ family on fall prevention, incl call for assistance when getting out of bed, Assessed \T\ reinforced patient's understanding of fall precautions, Hourly rounding (assess needs \T\ fall precautionary measures) done. Abuse screen: Denies threats or abuse. Denies injuries from another. Nutritional screening: No deficits noted. Tuberculosis screening: No symptoms or risk factors identified. Assessment: 11:54 General: Appears in no apparent distress. comfortable, Behavior is calm, cooperative, kc6 appropriate for age. Pain: Denies pain. Neuro: Gaytan Agitation-Sedation Scale (RASS): 0 - Alert and Calm Level of Consciousness is awake, alert, obeys commands, Oriented to person, place, time, situation, Appropriate for age. Cardiovascular: Capillary refill < 3 seconds. Respiratory: Airway is patent Trachea midline Respiratory effort is even, unlabored, Respiratory pattern is regular, symmetrical. GI: No signs and/or symptoms were reported involving the gastrointestinal system. : Reports vaginal bleeding that is light flow, Denies pain. EENT: No signs and/or symptoms were reported regarding the EENT system. Derm: No signs and/or symptoms reported regarding the dermatologic system. Skin is intact, Skin is pink, warm \T\ dry. Musculoskeletal: No signs and/or symptoms reported regarding the musculoskeletal system. Circulation, motion, and sensation intact. Capillary refill < 3 seconds, Range of motion: intact in all extremities. 12:54 Reassessment: Patient appears in no apparent distress at this time. No changes from kc6 previously documented assessment. Patient and/or family updated on plan of care and expected duration. Pain level reassessed. Patient is alert, oriented x 3, equal unlabored respirations, skin warm/dry/pink. Vital Signs: 12:57 BP 125 / 69; Pulse 64; Resp 17 S; Pulse Ox 100% on R/A; Pain 0/10; kc6 12:57 Pain Scale: Adult kc6 ED Course: 11:28 Patient arrived in ED. rg4 11:30 Akhil Holden MD is Attending Physician. bs3 11:37 Jonelle Briggs, ADELA is Primary Nurse. kc6 11:44 Triage completed. iw 11:45 Arm band placed on. iw 11:54 Test, Serum Sent. kc6 11:54 BMP Sent. kc6 11:54 CBC with Diff Sent. kc6 11:54 Inserted saline lock: 20 gauge in right antecubital area, using aseptic technique. 6 Blood collected. 11:55 Patient has correct armband on for positive identification. Bed in low position. Call kc6 light in reach. Side rails up X 1. Adult w/ patient. 12:41 US Pelvis Complete In Process Unspecified. EDMS 12:58 US Transvaginal Study (Probe) In Process Unspecified. EDMS 13:54 No provider procedures requiring assistance completed. IV discontinued, intact, iw bleeding controlled, No redness/swelling at site. Pressure dressing applied. Administered Medications: No medications were administered Medication: 13:54 VIS not applicable for this client. iw Outcome: 13:23 Discharge ordered by bs3 13:54 Discharged to home ambulatory, with family. iw 13:54 Condition: good 13:54 Discharge instructions given to patient, family, Instructed on discharge instructions, follow up and referral plans. 13:55 Patient left the ED. iw Signatures: Dispatcher [employer] Lilia Mojica, RN RN Yudelka Giraldo Kaitlyn RN RN kc6 Akhil Holden MD MD bs3
--- NOTE | 2022-11-23 13:24 | EDPHYS ---
Physician Documentation [facility] Name: Jaida Moyer Age: 52 yrs Sex: Female : 1970 Arrival Date: 11/23/2022 Time: 11:28 Bed 19 Private MD: ED Physician Akhil Holden HPI: 11/23 11:43 This 52 yrs old Female presents to ER via Unassigned with complaints of bs3 Vaginal Bleeding. 11:43 52yo with 1 month of abnormal vaginal bleeding, she ntoes small amount of spotting bs3 daily, denies any other symptoms, she is followed at [facility] by obgyn but referred here by her pcp today. NO lightheadedness, discharge, or any other complaints. Never had this before, she reports getting regular pap smears but does not recall last. Historical: - Allergies: 11:45 No Known Allergies; iw - Home Meds: 11:45 None [Active]; iw - PMHx: 11:45 None; iw - PSHx: 11:45 Cholecystectomy; iw - Social history:: Smoking status: Patient reports the use of cigarette tobacco products. ROS: 11:43 Constitutional: Negative for fever, chills bs3 11:43 All other systems are negative. Exam: 11:43 Constitutional: This is a well developed, well nourished patient who is awake, alert, bs3 and in no acute distress. Head/Face: Normocephalic, atraumatic. Eyes: Pupils equal round and reactive to light, extra-ocular motions intact. Lids and lashes normal. ENT: mmm, no posterior phyarngeal erythema Neck: Trachea midline, no thyromegaly, no neck stiffness Chest/axilla: Normal chest wall appearance and motion. Nontender with no deformity. No lesions are appreciated. Cardiovascular: Regular rate and rhythm with a normal S1 and S2. symmetric pulses in upper extremities Respiratory: Lungs have equal breath sounds bilaterally, clear to auscultation, no respiratory distress Abdomen/GI: Soft, non-tender, no rebound or guarding MS/ Extremity: Pulses equal, no cyanosis. Neurovascular intact. Full, normal range of motion. Neuro: Awake and alert, GCS 15, oriented to person, place, time, and situation. Cranial nerves II-XII grossly intact. Motor strength 5/5 in all extremities. Sensory grossly intact. Vital Signs: 12:57 BP 125 / 69; Pulse 64; Resp 17 S; Pulse Ox 100% on R/A; Pain 0/10; kc6 12:57 Pain Scale: Adult kc6 MDM: 11:29 Patient medically screened. bs3 11:43 Data reviewed: vital signs, nurses notes. ED course: pt with abnormal bleeding bs3 postmenaupausal. Pt advised that my biggest concern is cancer. I advised her to f/u at her pattern mechanic at [facility] for further workup given this concern. . 13:16 ED course: hcg elevated above limit but <14, US notable for thickening of endometrium. bs3 advised outpatient f/u laura for further workup. 11/23 11:42 Order name: CBC with Diff; Complete Time: 12:10 bs3 11/23 11:42 Order name: BMP; Complete Time: 12:26 bs3 11/23 11:42 Order name: Test, Serum; Complete Time: 12:26 bs3 11/23 12:42 Order name: HCG-Quantitative; Complete Time: 13:15 bs3 11/23 11:42 Order name: US Transvaginal Study (Probe); Complete Time: 13:15 bs3 11/23 11:43 Order name: US Pelvis Complete; Complete Time: 13:15 bs3 Administered Medications: No medications were administered Disposition Summary: 11/23/22 13:23 Discharge Ordered Location: Home bs3 Problem: new bs3 Symptoms: have improved bs3 Condition: Stable bs3 Diagnosis - Abnormal uterine and vaginal bleeding, unspecified bs3 Followup: bs3 - With: Private Physician - When: 2 - 3 days - Reason: Re-evaluation by your physician Discharge Instructions: - Discharge Summary Sheet bs3 - Postmenopausal Bleeding bs3 Forms: - Medication Reconciliation Form bs3 - Thank You Letter bs3 - Antibiotic Education bs3 - Prescription Opioid Use bs3 Signatures: Dispatcher [employer] Lilia Mojica RN RN Akhil Amador MD MD bs3
[2022-11-23 14:01] VITALS: BP 125/69; O2SAT 100
== END 2022-11-23 13:55 | disposition home or self-care (01) ==
LOC: ER 11:28
DX: N93.9 Abnormal uterine and vaginal bleeding, unspecified (principal); Z72.0 Tobacco use
CPT/HCPCS: 36415; 76830; 76856; 80048; 84702; 84703; 85025; 99284

== ENCOUNTER → 2023-10-06 | Emergency (ER) | payer BC ==
[~2023-10-06] MED LIST: MECLIZINE HCL 12.5 MG TAB ONE; NA CHLORIDE 0.9% 1,000 ML ONE
[2023-10-06 12:14] LABS: Absolute Eosinophils 0.1 K/uL (0-0.5); Absolute Lymphocytes (CBC) 1.4 K/uL (0.7-4.9); Absolute Monocytes 0.4 K/uL (0.1-1.3); Absolute Neutrophil 4.8 K/uL (1.8-8.0); Basophils % 0.3 % (0-1.3); Eosinophils % 0.9 % (0-4.4); Hematocrit 40.7 % (36.0-45.0); Hemoglobin 13.8 g/dL (12.0-15.0); Lymphocytes % 21.3 % (15.3-44.8); MCH 30.1 pg (27.0-35.0); MCHC 33.9 g/dL (32.0-36.0); MCV 88.7 fL (80-100); MPV 8.9 fL (7.6-11.3); Monocytes % 6.1 % (3.3-12.3); Neutrophils % 71.4 % (41.7-73.7); Nucleated Red Blood Cells % 0.1 % (0-0); Platelets 277 thou/uL (152-406); Red Cell Distribution Width 13.5 % (12.1-15.2)
--- NOTE | 2023-10-06 12:26 | RAD REPORT ---
EXAM DESCRIPTION: CT - Head Brain Wo Cont - 10/06/2023 12:16 pm CLINICAL HISTORY: DIZZINESS COMPARISON: Head Brain W/Wo Con dated 07/17/2022; HEAD BRAIN W O CONTRAST dated 03/20/2015 TECHNIQUE: Noncontrast head CT images were obtained without IV contrast. Multiplanar reformats were generated and reviewed. All CT scans are performed using dose optimization technique as appropriate and may include automated exposure control or mA/KV adjustment according to patient size. FINDINGS: No intracranial hemorrhage, mass, or edema. Incidentally noted partially empty sella. Midl ine structures otherwise unremarkable. Normal ventricular caliber for age. Lynn-white matter differentiation is preserved, without evidence of acute infarct. No abnormal extra- axial fluid collections. Mastoid air cells are well aerated. Moderate mucosal thickening in the sphenoid sinuses. No acute bony findings. IMPRESSION: No evidence of an acute intracranial process. Moderate mucosal thickening in the sphenoid sinuses.
[2023-10-06 12:38] LABS: ALT/SGPT 45 U/L (13-56); AST/SGOT 24 U/L (15-37); Albumin/Globulin Ratio 0.9 (1.1-1.8); Alkaline Phosphatase 108 U/L (45-117); Anion Gap 8.7 mEq/L (5.0-15.0); BUN Blood Urea Nitrogen 15 mg/dL (7-18); Bicarbonate 30 mEq/L (21-32); Bilirubin Direct 0.1 mg/dL (0-0.2); Bilirubin Indirect, Calculated 0.3 mg/dL (0.2-0.8); Bilirubin Total 0.4 mg/dL (0.2-1.0); Globulin 4.5 g/dL (2.3-3.5); Glomerular Filtration Rate 94 ml/min (=/>90); Glucose Level 82 mg/dL (74-106); Magnesium 2.5 mg/dL (1.6-2.4); Potassium 3.7 mEq/L (3.5-5.1); Protein, Total 8.5 g/dL (6.4-8.2); Sodium Level 141 mEq/L (136-145)
[2023-10-06 12:39] LABS: Troponin High Sensitivity < 3.0 pg/mL (<58.9)
--- NOTE | 2023-10-06 13:43 | EDPHYS ---
Physician Documentation [facility] Name: Jaida Moyer Age: 53 yrs Sex: Female : 1970 Arrival Date: 10/06/2023 Time: 11:10 Bed 16 Private MD: ED Physician Kvng Hemphill HPI: 10/05 11:56 This 53 yrs old Female presents to ER via Unassigned with complaints of sb4 Dizziness. 11:56 The patient presents with dizziness, feeling off balance, sense of spinning. Patient sb4 reports dizziness x 4 days. She states that she has taken Dramamine without significant improvement. She denies any other related symptoms-no chest pain, shortness of breath, nausea, vomiting, headache. She does endorse prior episodes of dizziness and was previously diagnosed with vertigo, but states that the symptoms usually resolve within a day. She denies any chronic medical problems or daily medications. RADIO REPORTER: 14:07 LMP N/A - control method, Not me1 Historical: - Allergies: 11:49 No Known Allergies; aa5 - Home Meds: 11:49 None [Active]; aa5 - PMHx: 11:49 None; aa5 - PSHx: 11:49 Cholecystectomy; aa5 - Immunization history:: Adult Immunizations unknown. - Social history:: Smoking status: Patient denies any tobacco usage or history of. ROS: 11:56 Constitutional: Negative for fever, chills, and weight loss, sb4 11:56 Neuro: Positive for dizziness, 11:56 All other systems are negative, Exam: 11:56 Constitutional: This is a well developed, well nourished patient who is awake, alert, sb4 and in no acute distress. Head/Face: Normocephalic, atraumatic. Eyes: Extra-ocular motions intact. Periorbital areas with no swelling, redness, or edema. ENT: Mucous membranes moist. Cardiovascular: Regular rate and rhythm with a normal S1 and S2. Respiratory: Lungs have equal breath sounds bilaterally, clear to auscultation and percussion. No rales, rhonchi or wheezes noted. No increased work of breathing, no retractions or nasal flaring. Abdomen/GI: Soft, non-tender, no distension. Skin: Warm, dry with normal turgor. Normal color with no rashes, no lesions, and no evidence of cellulitis. MS/ Extremity: Pulses equal, no cyanosis. Neurovascular intact. Full, normal range of motion. Neuro: Awake and alert, GCS 15, oriented to person, place, time, and situation. Motor strength 5/5 in all extremities. Sensory grossly intact. Vital Signs: 11:49 BP 141 / 85; Pulse 63; Resp 16 S; Temp 98.3(O); Pulse Ox 97% on R/A; Weight 50.35 kg aa5 (R); Height 4 ft. 11 in. (R); 12:00 BP 129 / 84; Pulse 59; Resp 16; Pulse Ox 100% on R/A; me1 12:58 BP 114 / 69 Supine; Pulse 58; me1 12:59 BP 134 / 82 Sitting; Pulse 57; me1 13:00 BP 135 / 75 Standing; Pulse 58; Resp 17; Pulse Ox 100% on R/A; me1 14:00 BP 118 / 72; Pulse 61; Resp 15; Temp 98.1(O); Pulse Ox 100% on R/A; me1 11:49 Body Mass Index 22.42 (50.35 kg, 149.86 cm) aa5 13:00 c/o worsening of dizziness when standing. Unsteady on her feet requiring assistance to me1 stand safely. MDM: 11:39 Patient medically screened. sb4 11:56 Differential diagnosis: cardiac arrhythmia, CVA, hypovolemia, idiopathic dizziness, sb4 vertigo, anemia, orthostatic hypotension, ACS. 13:42 Data reviewed: vital signs, nurses notes, lab test result(s), EKG, radiologic studies, sb4 and as a result, I will discharge patient. Counseling: I had a detailed discussion with the patient and/or guardian regarding the historical points, exam findings, and any diagnostic results supporting the discharge/admit diagnosis, lab results, radiology results, the need for outpatient follow up, an ENT specialist, a neurologist, to return to the emergency department if symptoms worsen or persist or if there are any questions or concerns that arise at home. 10/05 11:55 Order name: Basic Metabolic Panel; Complete Time: 12:39 sb4 10/05 11:55 Order name: CBC with Diff; Complete Time: 12:15 sb4 10/05 11:55 Order name: Hepatic Function; Complete Time: 12:39 sb4 10/05 11:55 Order name: Magnesium; Complete Time: 12:39 sb4 10/05 11:55 Order name: Troponin High Sensitivity; Complete Time: 12:39 sb4 10/05 12:16 Order name: Thyroid Stimulating Hormone; Complete Time: 12:39 EDMS 10/05 11:55 Order name: CT Head Brain wo Cont; Complete Time: 12:36 sb4 10/05 11:55 Order name: EKG; Complete Time: 11:55 sb4 10/05 11:55 Order name: Cardiac monitoring; Complete Time: 12:35 sb4 10/05 11:55 Order name: EKG - Nurse/Tech; Complete Time: 12:35 sb4 10/05 11:55 Order name: IV Saline Lock; Complete Time: 12:10 sb4 10/05 11:55 Order name: Labs collected and sent; Complete Time: 12:10 sb4 10/05 11:55 Order name: O2 Sat Monitoring; Complete Time: 11:57 sb4 10/05 11:55 Order name: Orthostatics; Complete Time: 13:09 sb4 EC:40 Rate is 57 beats/min. Rhythm is regular, Sinus bradycardia. MT interval is normal at sb4 158 msec. QRS interval is normal at 84 msec. QT interval is normal at 388 msec. No Q waves. T waves are Normal. No ST changes noted. Clinical impression: Sinus bradycardia and No evidence of ischemia. Interpreted by me. Reviewed by me. Administered Medications: 12:35 Drug: NS 0.9% IV 1000 ml IV at 1 bolus Per protocol; 1000 mL bolus Route: IV; Rate: 1 me1 bolus; Site: left wrist; 13:56 Follow up: Response: No adverse reaction; IV Status: Completed infusion; IV Intake: me1 1000ml 13:02 Drug: Meclizine PO 50 mg PO once Route: PO; me1 14:07 Follow up: Response: No adverse reaction me1 Disposition: 12:06 Co-signature as Attending Physician, Kvng Hemphill MD I agree with the assessment and cp3 plan of care. Disposition Summary: 10/06/23 13:43 Discharge Ordered Notes: Location: Home sb4 Problem: an ongoing problem sb4 Symptoms: have improved sb4 Condition: Stable sb4 Diagnosis - Dizziness and giddiness sb4 - Acute sphenoidal sinusitis sb4 Followup: sb4 - With: Hawk Cerrato MD - When: As needed - Reason: Recheck today's complaints, Re-evaluation by your physician Discharge Instructions: - Discharge Summary Sheet sb4 - Dizziness sb4 - Sinusitis, Adult sb4 - How to Perform a Sinus Rinse, [id number] sb4 Forms: - Thank You Letter sb4 - Patient Portal Instructions sb4 - Leadership Thank You Letter sb4 - Work release form me1 Prescriptions: - Flonase Allergy Relief 50 mcg/actuation Nasal spray, suspension - spray 2 spray INTRANASAL route daily administer into each nostril; 1 sb4 Applicator; Refills: 0, Product Selection Permitted - Meclizine 25 mg Oral Tablet - take 1 tablet ORAL route every 8 hours As needed; 30 tablet; Refills: 0, sb4 Product Selection Permitted Signatures: Dispatcher [employer] Kvng Godwin MD MD cp3 Gabrielle Aj RN RN aa5 Lluvia Cervantes, PA-C PA-C sb4 Marika Scanlon, ADELA RN me1 Corrections: (The following items were deleted from the chart) 12:16 11:58 THYROID STIMULAT HORMONE+[id number].LAB.BRZ ordered. EDMS EDMS
--- NOTE | 2023-10-06 13:43 | ER ---
Nurse's Notes [facility] Name: Jaida Moyer Age: 53 yrs Sex: Female : 1970 Arrival Date: 10/06/2023 Time: 11:10 Bed 16 Private MD: Diagnosis: Dizziness and giddiness;Acute sphenoidal sinusitis Presentation: 10/05 11:49 Chief complaint: Chief complaint: Patient states: dizzy and nausea that began on aa5 , reports taking Dramamine without any relief. 11:49 Coronavirus screen: At this time, the client does not indicate any symptoms associated aa5 with coronavirus-19. Ebola Screen: Patient denies travel to an Ebola-affected area in the 21 days before illness onset. Initial Sepsis Screen: Does the patient meet any 2 criteria? No. Patient's initial sepsis screen is negative. Does the patient have a suspected source of infection? No. Patient's initial sepsis screen is negative. Risk Assessment: Do you want to hurt yourself or someone else? Patient reports no desire to harm self or others. Onset of symptoms was September 2023. 11:49 Acuity: INC 3 aa5 11:49 Method Of Arrival: Ambulatory aa5 NETWORK COORDINATOR: 14:07 LMP N/A - control method, Not me1 Historical: - Allergies: 11:49 No Known Allergies; aa5 - Home Meds: 11:49 None [Active]; aa5 - PMHx: 11:49 None; aa5 - PSHx: 11:49 Cholecystectomy; aa5 - Immunization history:: Adult Immunizations unknown. - Social history:: Smoking status: Patient denies any tobacco usage or history of. Screenin:10 [facility] ED Fall Risk Assessment (Adult) History of falling in the last 3 months, me1 including since admission No falls in past 3 months (0 pts) Confusion or Disorientation No (0 pts) Intoxicated or Sedated No (0 pts) Impaired Gait No (0 pts) Mobility Assist Device Used No (0 pt) Altered Elimination No (0 pt) Score/Fall Risk Level 0 - 2 = Low Risk Maintained a safe environment, Provided non-skid footwear, Hourly rounding (assess needs \T\ fall precautionary measures) done. Abuse screen: Denies threats or abuse. Nutritional screening: No deficits noted. Tuberculosis screening: No symptoms or risk factors identified. Assessment: 12:10 General: Appears comfortable, well groomed, well developed, well nourished, Behavior is me1 calm, cooperative, appropriate for age, Reports dizziness and nausea that started on . Pain: Denies pain. Neuro: Level of Consciousness is awake, alert, obeys commands, Oriented to person, place, time, situation, Appropriate for age. Neuro: Reports dizziness, since . Cardiovascular: Capillary refill < 3 seconds Patient's skin is warm and dry. Cardiovascular: Denies chest pain. Respiratory: Airway is patent Trachea midline Respiratory effort is even, unlabored, Respiratory pattern is regular, symmetrical. GI: Reports nausea. Derm: Skin is intact, is healthy with good turgor, Skin is pink, warm \T\ dry. 13:55 General: Patient hasn't provided urine specimen yet. BRANT Escoto aware. . me1 Vital Signs: 11:49 BP 141 / 85; Pulse 63; Resp 16 S; Temp 98.3(O); Pulse Ox 97% on R/A; Weight 50.35 kg aa5 (R); Height 4 ft. 11 in. (R); 12:00 BP 129 / 84; Pulse 59; Resp 16; Pulse Ox 100% on R/A; me1 12:58 BP 114 / 69 Supine; Pulse 58; me1 12:59 BP 134 / 82 Sitting; Pulse 57; me1 13:00 BP 135 / 75 Standing; Pulse 58; Resp 17; Pulse Ox 100% on R/A; me1 14:00 BP 118 / 72; Pulse 61; Resp 15; Temp 98.1(O); Pulse Ox 100% on R/A; me1 11:49 Body Mass Index 22.42 (50.35 kg, 149.86 cm) aa5 13:00 c/o worsening of dizziness when standing. Unsteady on her feet requiring assistance to me1 stand safely. ED Course: 11:13 Patient arrived in ED. mg5 11:13 Lluvia Cervantes PA-C is PHCP. sb4 11:13 Kvng Hemphill MD is Attending Physician. sb4 11:49 Arm band placed on. aa5 12:09 Triage completed. aa5 12:09 Inserted saline lock: 20 gauge in left wrist, using aseptic technique. Blood collected. ls5 12:10 Patient has correct armband on for positive identification. Bed in low position. Call me1 light in reach. Side rails up X2. Provided Education on: POC. Verbalized understanding. . 12:10 No provider procedures requiring assistance completed. me1 12:13 Marika Scanlon, RN is Primary Nurse. me1 12:18 CT Head Brain wo Cont In Process Unspecified. EDMS 13:43 Hawk Cerrato MD is Referral Physician. sb4 14:08 IV discontinued, intact, bleeding controlled, No redness/swelling at site. Pressure me1 dressing applied. Administered Medications: 12:35 Drug: NS 0.9% IV 1000 ml IV at 1 bolus Per protocol; 1000 mL bolus Route: IV; Rate: 1 me1 bolus; Site: left wrist; 13:56 Follow up: Response: No adverse reaction; IV Status: Completed infusion; IV Intake: me1 1000ml 13:02 Drug: Meclizine PO 50 mg PO once Route: PO; me1 14:07 Follow up: Response: No adverse reaction me1 Medication: 12:10 VIS not applicable for this client. me1 Intake: 13:56 IV: 1000ml; Total: 1000ml. me1 Outcome: 13:43 Discharge ordered by MD. sb4 14:07 Discharged to home ambulatory, with significant other, me1 14:07 Condition: stable 14:07 Condition: stable 14:07 Discharge instructions given to patient, significant other, Instructed on discharge instructions, follow up and referral plans. the need for admit, Demonstrated understanding of instructions, follow-up care, medications, Prescriptions given X 2, 14:10 Patient left the ED. me1 Signatures: Dispatcher [employer] EDND Gabrielle Aj, RN RN aa5 Lluvia Cervantes, PA-C PA-C sb4 Nicholas Unger ls5 Marika Scanlon, RN RN me1 Stephanie Navarro mg5 Corrections: (The following items were deleted from the chart) 13:12 13:00 BP 135 / 75 Standing; Pulse 58bpm; c/o worsening of dizziness when standing. me1 Unsteady on her feet requiring assistance to stand safely.; me1
[2023-10-06 14:30] VITALS: BP 135/75; TEMP 98.3; O2SAT 100
--- NOTE | 2023-10-07 14:24 | EKG ---
Test Date: 2023-10-06 Test Time: 12:20:09 Personnel Generalist Manager: MEASUREMENT RESULTS: Intervals: Rate: 57 DC: 158 QRSD: 84 QT: 388 QTc: 377 [place]: P: -15 DC: 158 QRS: 73 T: 67 INTERPRETIVE STATEMENTS: Sinus bradycardia Cannot rule out Anterior infarct, age undetermined Abnormal ECG No previous ECG available for comparison Electronically Signed On 10-07-23 14:23:41 CDT by David Mejias
== END ==
LOC: ER 11:10
DX: J01.30 Acute sphenoidal sinusitis, unspecified (principal)
CPT/HCPCS: 93005; 85025; 80048; 36415; 83735; 80076; 84443; 84484; 70450; J8597; J7030; 96360; 99284